=== PATIENT | male | born 1945 | race Caucasian/White ===

== ENCOUNTER 2019-10-29 07:09 | Outpatient (CLI) | payer MEDICARE, SELFPAY ==
[2019-10-29 07:26] LABS: Basophils Absolute Auto 0.05 K/mm3 (0.00-0.10); Basophils Percent Auto 0.7 % (0.0-1.0); Eosinophils Percent Auto 2.7 % (1.0-6.0); Hematocrit 49.3 % (37.0-46.0); Hemoglobin 16.3 g/dL (12.4-15.3); Immature Granulocyte Absolute 0.01 K/mm3 (0.00-0.00); Immature Granulocyte Percent A 0.1 % (0.0-0.0); Lymphocytes Absolute Auto 1.86 K/mm3 (1.10-4.50); Lymphocytes Percent Auto 25.1 % (18.0-42.0); Mean Corpuscular HGB Conc 33.1 g/dL (32.0-36.0); Mean Corpuscular Hemoglobin 32.1 pg (27.0-31.0); Mean Platelet Volume 10.7 fl (8.7-11.0); Monocytes Absolute Auto 0.68 K/mm3 (0.10-0.90); Monocytes Percent Auto 9.2 % (2.0-11.0); Neutrophils Absolute Auto 4.6 K/mm3 (1.7-7.2); Neutrophils Percent Auto 62.2 % (50.0-70.0); Platelet Count Result 144 K/mm3 (150-420); Red Blood Count 5.08 M/mm3 (4.70-6.10); Red Cell Distribution Width 13.1 % (11.6-14.4); White Blood Count 7.4 K/mm3 (4.8-10.8)
[2019-10-29 07:28] LABS: Add Urine Microscopic? YES; Appearance Urine Clear (Clear); Bilirubin Urine Negative (Negative); Blood Urine 1+ (Negative); Color Urine Yellow (Yellow); Glucose Urine UA Negative (Negative); Ketones Urine Negative (Negative); Leukocyte Esterase Ur Negative LEU/UL (Negative); Nitrate Urine Negative (Negative); Protein Urine 2+ (Negative); Specific Grav Ur 1.025 (1.010-1.020); Urobilinogen Urine 0.2 mg/dL (0.2-1.0)
[2019-10-29 07:33] LABS: Bacteria Urine None seen /hpf; RBC Urine 0-2 /hpf (0-2); WBC Urine 0-3 /hpf (0-3)
[2019-10-29 07:38] LABS: Creatinine Urine 70.06 mg/dL (40-278)
[2019-10-29 08:11] LABS: Alanine Aminotransferase 29 U/L (16-63); Alkaline Phosphatase 62 U/L (46-116); Aspartate Amino Transferase 21 U/L (15-37); Bilirubin,Total 0.7 mg/dL (0.00-1.00); Blood Urea Nitrogen 60 mg/dL (7-18); Calcium 8.8 mg/dL (8.5-10.1); Carbon Dioxide 28 mmol/L (21-32); Chloride 102 mmol/L (98-108); Estimated Glomerular Filt Rate 29; Glucose 228 mg/dL (70-99); Osmolality Calculated 313 mOsm/kg (285-295); Phosphorus 4.6 mg/dL (2.6-4.7); Sodium 140 mmol/L (136-145); Total Protein 7.7 g/dL (6.4-8.2)
[2019-10-31 18:14] LABS: Erythropoietin (EPO) 14.8 mIU/mL (2.6-18.5)
[2019-11-02 11:40] LABS: Parathyroid Intact 58 pg/mL (14-64)
[2019-11-03 12:02] LABS: Vitamin D 25 Hydroxy 55 ng/mL (30-100)
== END 2019-10-29 07:10 | disposition home or self-care (01) ==
LOC: CHSLAB 07:13
PROVIDERS: PCP Internal Medicine
DX: N18.3 Chronic kidney disease, stage 3 (moderate) (principal); I50.9 Heart failure, unspecified; E87.5 Hyperkalemia; N25.81 Secondary hyperparathyroidism of renal origin
CPT/HCPCS: 36415; 80053; 81001; 82306; 82570; 82668; 83970; 84100; 84156; 85025

== ENCOUNTER 2020-01-26 09:29 | Outpatient (CLI) | payer MEDICARE, SELFPAY ==
[2020-01-26 09:42] LABS: Basophils Absolute Auto 0.05 K/mm3 (0.00-0.10); Basophils Percent Auto 0.5 % (0.0-1.0); Eosinophils Absolute Auto 0.19 K/mm3 (0.02-0.50); Hematocrit 50.6 % (37.0-46.0); Hemoglobin 16.7 g/dL (12.4-15.3); Immature Granulocyte Absolute 0.04 K/mm3 (0.00-0.00); Immature Granulocyte Percent A 0.4 % (0.0-0.0); Lymphocytes Absolute Auto 1.88 K/mm3 (1.10-4.50); Lymphocytes Percent Auto 20.2 % (18.0-42.0); Mean Corpuscular Hemoglobin 32.5 pg (27.0-31.0); Mean Corpuscular Volume 98.4 fL (78.0-102.0); Mean Platelet Volume 10.8 fl (8.7-11.0); Monocytes Absolute Auto 0.89 K/mm3 (0.10-0.90); Monocytes Percent Auto 9.5 % (2.0-11.0); Neutrophils Absolute Auto 6.3 K/mm3 (1.7-7.2); Neutrophils Percent Auto 67.4 % (50.0-70.0); Platelet Count Result 161 K/mm3 (150-420); Red Blood Count 5.14 M/mm3 (4.70-6.10); Red Cell Distribution Width 13.1 % (11.6-14.4); White Blood Count 9.3 K/mm3 (4.8-10.8)
[2020-01-26 09:47] LABS: Add Urine Microscopic? YES; Appearance Urine Clear (Clear); Bilirubin Urine Negative (Negative); Blood Urine 1+ (Negative); Color Urine Yellow (Yellow); Glucose Urine UA Trace (Negative); Ketones Urine Negative (Negative); Leukocyte Esterase Ur Negative LEU/UL (Negative); Nitrate Urine Negative (Negative); Protein Urine 2+ (Negative); Urobilinogen Urine 0.2 mg/dL (0.2-1.0)
[2020-01-26 09:52] LABS: Bacteria Urine 1+ /hpf; Squamous Epithelial Cell Urine Occasional /hpf (Few); WBC Urine 0-3 /hpf (0-3)
[2020-01-26 09:54] LABS: Creatinine Urine 79.04 mg/dL (40-278); Total Protein Urine Random 179.7 mg/dL (0.0-11.9)
[2020-01-26 10:32] LABS: Alanine Aminotransferase 29 U/L (16-63); Albumin Level 3.9 g/dL (3.4-5.0); Alkaline Phosphatase 76 U/L (46-116); Anion Gap 11.6 mmol/L (7-16); Aspartate Amino Transferase 22 U/L (15-37); Bilirubin,Total 0.5 mg/dL (0.00-1.00); Blood Urea Nitrogen 48 mg/dL (7-18); Calcium 9.1 mg/dL (8.5-10.1); Carbon Dioxide 32 mmol/L (21-32); Chloride 104 mmol/L (98-108); Estimated Glomerular Filt Rate 34; Glucose 169 mg/dL (70-99); Osmolality Calculated 310 mOsm/kg (285-295); Phosphorus 4.1 mg/dL (2.6-4.7); Potassium 5.6 mmol/L (3.5-5.1); Sodium 142 mmol/L (136-145); Total Protein 7.4 g/dL (6.4-8.2)
[2020-01-28 17:49] LABS: Vitamin D 25 Hydroxy 51 ng/mL (30-100)
[2020-01-29 13:50] LABS: Parathyroid Intact 106 pg/mL (14-64)
== END 2020-01-26 09:30 | disposition home or self-care (01) ==
PROVIDERS: PCP Internal Medicine
DX: N18.3 Chronic kidney disease, stage 3 (moderate) (principal); I50.9 Heart failure, unspecified; E87.5 Hyperkalemia; N25.81 Secondary hyperparathyroidism of renal origin
CPT/HCPCS: 36415; 80053; 81001; 82306; 82570; 83970; 84100; 84156; 85025

== ENCOUNTER 2020-02-09 08:47 | Outpatient (CLI) | payer MEDICARE, SELFPAY ==
[2020-02-09 08:58] LABS: Basophils Absolute Auto 0.06 K/mm3 (0.00-0.10); Basophils Percent Auto 0.6 % (0.0-1.0); Eosinophils Absolute Auto 0.18 K/mm3 (0.02-0.50); Eosinophils Percent Auto 1.9 % (1.0-6.0); Hematocrit 51.1 % (37.0-46.0); Hemoglobin 17.1 g/dL (12.4-15.3); Immature Granulocyte Absolute 0.04 K/mm3 (0.00-0.00); Immature Granulocyte Percent A 0.4 % (0.0-0.0); Lymphocytes Absolute Auto 2.06 K/mm3 (1.10-4.50); Lymphocytes Percent Auto 21.3 % (18.0-42.0); Mean Corpuscular HGB Conc 33.5 g/dL (32.0-36.0); Mean Corpuscular Hemoglobin 32.3 pg (27.0-31.0); Mean Corpuscular Volume 96.6 fL (78.0-102.0); Mean Platelet Volume 10.3 fl (8.7-11.0); Monocytes Absolute Auto 0.85 K/mm3 (0.10-0.90); Monocytes Percent Auto 8.8 % (2.0-11.0); Neutrophils Absolute Auto 6.5 K/mm3 (1.7-7.2); Platelet Count Result 172 K/mm3 (150-420); Red Blood Count 5.29 M/mm3 (4.70-6.10); White Blood Count 9.7 K/mm3 (4.8-10.8)
[2020-02-09 09:38] LABS: Anion Gap 12.8 mmol/L (7-16); Blood Urea Nitrogen 51 mg/dL (7-18); Calcium 9.6 mg/dL (8.5-10.1); Carbon Dioxide 31 mmol/L (21-32); Chloride 101 mmol/L (98-108); Estimated Glomerular Filt Rate 31; Glucose 203 mg/dL (70-99); Osmolality Calculated 309 mOsm/kg (285-295); Phosphorus 4.1 mg/dL (2.6-4.7); Potassium 4.8 mmol/L (3.5-5.1); Sodium 140 mmol/L (136-145)
== END 2020-02-09 08:48 | disposition home or self-care (01) ==
PROVIDERS: PCP Internal Medicine
DX: N18.3 Chronic kidney disease, stage 3 (moderate) (principal); I12.9 Hypertensive chronic kidney disease with stage 1 through stage 4 chronic kidney disease, or unspecified chronic kidney disease
CPT/HCPCS: 36415; 80069; 85025

== ENCOUNTER 2020-03-24 07:09 | Outpatient (CLI) | payer MEDICARE, SELFPAY ==
[2020-03-24 07:24] LABS: Basophils Absolute Auto 0.05 K/mm3 (0.00-0.10); Basophils Percent Auto 0.6 % (0.0-1.0); Eosinophils Absolute Auto 0.23 K/mm3 (0.02-0.50); Eosinophils Percent Auto 2.8 % (1.0-6.0); Hematocrit 50.1 % (37.0-46.0); Hemoglobin 16.9 g/dL (12.4-15.3); Immature Granulocyte Absolute 0.03 K/mm3 (0.00-0.00); Immature Granulocyte Percent A 0.4 % (0.0-0.0); Lymphocytes Absolute Auto 2.02 K/mm3 (1.10-4.50); Lymphocytes Percent Auto 24.5 % (18.0-42.0); Mean Corpuscular HGB Conc 33.7 g/dL (32.0-36.0); Mean Corpuscular Hemoglobin 33.1 pg (27.0-31.0); Mean Corpuscular Volume 98.2 fL (78.0-102.0); Mean Platelet Volume 11.2 fl (8.7-11.0); Monocytes Absolute Auto 0.73 K/mm3 (0.10-0.90); Monocytes Percent Auto 8.9 % (2.0-11.0); Neutrophils Absolute Auto 5.2 K/mm3 (1.7-7.2); Neutrophils Percent Auto 62.8 % (50.0-70.0); Platelet Count Result 151 K/mm3 (150-420); Red Cell Distribution Width 12.9 % (11.6-14.4); White Blood Count 8.2 K/mm3 (4.8-10.8)
[2020-03-24 08:08] LABS: Add Urine Microscopic? YES; Albumin Level 3.7 g/dL (3.4-5.0); Anion Gap 8.6 mmol/L (7-16); Appearance Urine Clear (Clear); Bilirubin Urine Negative (Negative); Blood Urea Nitrogen 54 mg/dL (7-18); Blood Urine 1+ (Negative); Calcium 8.6 mg/dL (8.5-10.1); Carbon Dioxide 34 mmol/L (21-32); Chloride 102 mmol/L (98-108); Color Urine Yellow (Yellow); Estimated Glomerular Filt Rate 28; Glucose 239 mg/dL (70-99); Glucose Urine UA 1+ (Negative); Ketones Urine Negative (Negative); Leukocyte Esterase Ur Negative LEU/UL (Negative); Nitrate Urine Negative (Negative); Osmolality Calculated 312 mOsm/kg (285-295); Phosphorus 3.9 mg/dL (2.6-4.7); Potassium 4.6 mmol/L (3.5-5.1); Protein Urine 2+ (Negative); Sodium 140 mmol/L (136-145); Urobilinogen Urine 0.2 mg/dL (0.2-1.0); pH Urine 6.5 (5.0-8.0)
[2020-03-24 08:14] LABS: RBC Urine 0-2 /hpf (0-2); WBC Urine 0-3 /hpf (0-3)
[2020-03-24 08:15] LABS: Bacteria Urine None seen /hpf
[2020-03-24 08:16] LABS: Creatinine Urine 91.01 mg/dL (40-278); Total Protein Urine Random 237.1 mg/dL (0.0-11.9)
[2020-03-28 19:41] LABS: Vitamin D 25 Hydroxy 51 ng/mL (30-100)
[2020-03-29 13:01] LABS: Parathyroid Intact 84 pg/mL (14-64)
== END 2020-03-24 07:10 ==
PROVIDERS: PCP Internal Medicine
DX: N18.3 Chronic kidney disease, stage 3 (moderate) (principal); I50.9 Heart failure, unspecified; E87.5 Hyperkalemia; N25.81 Secondary hyperparathyroidism of renal origin
CPT/HCPCS: 36415; 80069; 81001; 82306; 82570; 83970; 84156; 85025

== ENCOUNTER 2020-03-28 07:44 | Outpatient (CLI) | payer MEDICARE, OTHER, SELFPAY ==
--- NOTE | ~2020-03-28 | US_ITS ---
EXAMINATION: US carotid duplex BI DATE: 03/28/2020 08:39 INDICATION: Carotid stenosis TECHNIQUE: Grayscale, color Doppler, and pulsed Doppler images of the cervical carotid arteries were obtained. The degree of vessel stenosis is placed in one of the following categories: normal, <50%, 5 0-69%, >=70% but less than near-occlusion, near-occlusion, or total occlusion. Note that percent sten osis relative to normal distal artery lumen diameter is indirectly measured from velocity measurement s as described by Sumit, et al. Radiology 2003; 229:340-346. COMPARISON: None. FINDINGS: RIGHT: The right common carotid artery (CCA) peak systolic velocity (PSV) is 54 cm/s. The right internal car otid artery (ICA) PSV is 71 cm/s. The right ICA end-diastolic velocity (EDV) is 23 cm/s. The right IC A/CCA PSV ratio is 1.3. Grayscale and color Doppler images yield an estimate of <50% diameter reducti on from plaque in the ICA. The external carotid artery (ECA) PSV is 64 cm/s. There is antegrade flow in the right vertebral artery. LEFT: The left CCA PSV is 59 cm/s. The left ICA PSV is 100 cm/s. The left ICA EDV is 40 cm/s. The left ICA/ CCA PSV ratio is 1.7. Grayscale and color Doppler images yield an estimate of <50% diameter reduction from plaque in the ICA. The ECA PSV is 70 cm/s. There is antegrade flow in the left vertebral artery . IMPRESSION: 1. <50% stenosis in the right internal carotid artery. 2. <50% stenosis in the left internal carotid artery. Reviewed, dictated and finalized at location A.
--- NOTE | ~2020-03-28 | US_ITS ---
EXAMINATION: US arterial ankle brachial ind DATE: 03/28/2020 08:39 INDICATION: Weak lower extremity pulses. Numbness and tingling of both feet TECHNIQUE: Segmental pressures and plethysmographic and Doppler waveforms of the brachial and lower e xtremity arteries were obtained. COMPARISON: None. FINDINGS: Right and left brachial artery pressures of 115 mm Hg and 114 mm Hg, respectively, are concordant (no rmal difference <= 30 mmHg). The right ankle-brachial index (VALORIE) is 1.20 (normal >= 0.9-1.0). The right great toe-brachial index (TBI) is 0.85 (normal >= 0.65). Arterial Doppler waveforms are monophasic. The left VALORIE is 1.22. The left TBI is 0.74. Arterial Doppler waveforms are biphasic. IMPRESSION: Normal VALORIE and TBI of both lower extremities Reviewed, dictated and finalized at Location A. Reviewed, dictated and finalized at location B.
== END 2020-03-28 07:45 | disposition home or self-care (01) ==
LOC: CHSIMG 07:46
PROVIDERS: PCP Internal Medicine; Visit Provider Internal Medicine
DX: I65.29 Occlusion and stenosis of unspecified carotid artery (principal); E11.59 Type 2 diabetes mellitus with other circulatory complications
CPT/HCPCS: 93880; 93922

== ENCOUNTER 2020-04-07 07:19 | Outpatient (CLI) | payer MEDICARE, SELFPAY ==
[2020-04-07 08:14] LABS: Anion Gap 8.5 mmol/L (7-16); Blood Urea Nitrogen 42 mg/dL (7-18); Carbon Dioxide 34 mmol/L (21-32); Chloride 100 mmol/L (98-108); Estimated Glomerular Filt Rate 27; Glucose 222 mg/dL (70-99); Osmolality Calculated 303 mOsm/kg (285-295); Potassium 4.5 mmol/L (3.5-5.1); Sodium 138 mmol/L (136-145)
== END 2020-04-07 07:20 | disposition home or self-care (01) ==
PROVIDERS: PCP Internal Medicine
DX: N18.3 Chronic kidney disease, stage 3 (moderate) (principal)
CPT/HCPCS: 36415; 80048

== ENCOUNTER 2020-05-09 07:42 | Outpatient (CLI) | payer MEDICARE, SELFPAY ==
[2020-05-09 08:01] LABS: Basophils Absolute Auto 0.04 K/mm3 (0.00-0.10); Basophils Percent Auto 0.5 % (0.0-1.0); Eosinophils Absolute Auto 0.19 K/mm3 (0.02-0.50); Eosinophils Percent Auto 2.3 % (1.0-6.0); Hematocrit 51.2 % (37.0-46.0); Immature Granulocyte Absolute 0.03 K/mm3 (0.00-0.00); Immature Granulocyte Percent A 0.4 % (0.0-0.0); Lymphocytes Absolute Auto 2.03 K/mm3 (1.10-4.50); Lymphocytes Percent Auto 24.6 % (18.0-42.0); Mean Corpuscular HGB Conc 33.2 g/dL (32.0-36.0); Mean Corpuscular Hemoglobin 32.6 pg (27.0-31.0); Mean Corpuscular Volume 98.1 fL (78.0-102.0); Mean Platelet Volume 11.3 fl (8.7-11.0); Monocytes Percent Auto 9.7 % (2.0-11.0); Neutrophils Absolute Auto 5.2 K/mm3 (1.7-7.2); Neutrophils Percent Auto 62.5 % (50.0-70.0); Platelet Count Result 160 K/mm3 (150-420); Red Blood Count 5.22 M/mm3 (4.70-6.10); Red Cell Distribution Width 12.6 % (11.6-14.4); White Blood Count 8.2 K/mm3 (4.8-10.8)
[2020-05-09 08:02] LABS: Add Urine Microscopic? YES; Appearance Urine Clear (Clear); Bilirubin Urine Negative (Negative); Blood Urine 1+ (Negative); Color Urine Yellow (Yellow); Glucose Urine UA Negative (Negative); Ketones Urine Negative (Negative); Leukocyte Esterase Ur Negative LEU/UL (Negative); Nitrate Urine Negative (Negative); Protein Urine 3+ (Negative); Specific Grav Ur 1.025 (1.010-1.020); Urobilinogen Urine 0.2 mg/dL (0.2-1.0)
[2020-05-09 08:11] LABS: Creatinine Urine 95.56 mg/dL (40-278); Total Protein Urine Random > 250.0 mg/dL (0.0-11.9)
[2020-05-09 08:50] LABS: WBC Urine 0-3 /hpf (0-3)
[2020-05-09 08:51] LABS: Bacteria Urine Trace /hpf
[2020-05-09 10:00] LABS: Alanine Aminotransferase 30 U/L (16-63); Albumin Level 3.7 g/dL (3.4-5.0); Alkaline Phosphatase 67 U/L (46-116); Anion Gap 6 mmol/L (8-16); Aspartate Amino Transferase 26 U/L (15-37); Bilirubin,Total 0.7 mg/dL (0.00-1.00); Blood Urea Nitrogen 32 mg/dL (7-18); Calcium 8.9 mg/dL (8.5-10.1); Carbon Dioxide 31 mmol/L (21-32); Chloride 104 mmol/L (98-108); Estimated Glomerular Filt Rate 35; Glucose 165 mg/dL (70-99); Osmolality Calculated 302 mOsm/kg (285-295); Phosphorus 3.7 mg/dL (2.6-4.7); Potassium 4.8 mmol/L (3.5-5.1); Sodium 141 mmol/L (136-145); Total Protein 7.3 g/dL (6.4-8.2)
[2020-05-12 09:43] LABS: Vitamin D 25 Hydroxy 51 ng/mL (30-100)
[2020-05-12 12:46] LABS: Parathyroid Intact 82 pg/mL (14-64)
== END 2020-05-09 07:43 | disposition home or self-care (01) ==
LOC: CHSLAB 07:44
PROVIDERS: PCP Internal Medicine; Visit Provider Internal Medicine Nephrology
DX: N18.3 Chronic kidney disease, stage 3 (moderate) (principal); E87.5 Hyperkalemia; N25.81 Secondary hyperparathyroidism of renal origin
CPT/HCPCS: 36415; 80053; 81001; 82306; 82570; 83970; 84100; 84156; 85025

== ENCOUNTER 2020-06-15 07:05 | Outpatient (CLI) | payer MEDICARE, SELFPAY ==
[2020-06-15 07:49] LABS: Hemoglobin A1C 7.5 % (<5.7)
[2020-06-15 07:54] LABS: Creatinine Urine 69.86 mg/dL (40-278)
[2020-06-15 08:35] LABS: MALB Creatinine Ratio 572.5 mg/g (0-30); Microalbumin Urine Random > 400.0 mg/L
[2020-06-15 08:41] LABS: Anion Gap 5 mmol/L (8-16); Blood Urea Nitrogen 44 mg/dL (7-18); Calcium 9.1 mg/dL (8.5-10.1); Carbon Dioxide 31 mmol/L (21-32); Chloride 104 mmol/L (98-108); Estimated Glomerular Filt Rate 32; Glucose 195 mg/dL (70-99); Osmolality Calculated 306 mOsm/kg (285-295); Potassium 4.8 mmol/L (3.5-5.1); Prostate Specific Antigen 0.6 ng/mL (< OR = 4.0); Sodium 140 mmol/L (136-145)
== END 2020-06-15 07:06 | disposition home or self-care (01) ==
LOC: CHSLAB 07:08
PROVIDERS: PCP Internal Medicine; Visit Provider Internal Medicine
DX: E11.65 Type 2 diabetes mellitus with hyperglycemia (principal); Z12.5 Encounter for screening for malignant neoplasm of prostate
CPT/HCPCS: 36415; 80048; 82043; 83036; 84153; G0103

== ENCOUNTER 2020-08-08 08:39 | Outpatient (CLI) | payer MEDICARE, SELFPAY ==
[2020-08-08 08:58] LABS: Add Urine Microscopic? YES; Appearance Urine Clear (Clear); Bilirubin Urine Negative (Negative); Blood Urine 1+ (Negative); Color Urine Yellow (Yellow); Glucose Urine UA 1+ (Negative); Ketones Urine Negative (Negative); Leukocyte Esterase Ur Negative LEU/UL (Negative); Nitrate Urine Negative (Negative); Protein Urine 2+ (Negative); Specific Grav Ur >= 1.030 (1.010-1.020); Urobilinogen Urine 0.2 mg/dL (0.2-1.0)
[2020-08-08 09:08] LABS: Bacteria Urine Trace /hpf; Basophils Absolute Auto 0.05 K/mm3 (0.00-0.10); Basophils Percent Auto 0.6 % (0.0-1.0); Eosinophils Percent Auto 2.4 % (1.0-6.0); Hematocrit 49.9 % (37.0-46.0); Hemoglobin 16.3 g/dL (12.4-15.3); Immature Granulocyte Absolute 0.03 K/mm3 (0.00-0.00); Immature Granulocyte Percent A 0.4 % (0.0-0.0); Lymphocytes Absolute Auto 2.07 K/mm3 (1.10-4.50); Lymphocytes Percent Auto 24.7 % (18.0-42.0); Mean Corpuscular HGB Conc 32.7 g/dL (32.0-36.0); Mean Corpuscular Hemoglobin 32.1 pg (27.0-31.0); Mean Corpuscular Volume 98.2 fL (78.0-102.0); Mean Platelet Volume 11.3 fl (8.7-11.0); Monocytes Absolute Auto 0.76 K/mm3 (0.10-0.90); Monocytes Percent Auto 9.1 % (2.0-11.0); Neutrophils Absolute Auto 5.3 K/mm3 (1.7-7.2); Neutrophils Percent Auto 62.8 % (50.0-70.0); Platelet Count Result 165 K/mm3 (150-420); RBC Urine 0-2 /hpf (0-2); Red Blood Count 5.08 M/mm3 (4.70-6.10); Red Cell Distribution Width 13.3 % (11.6-14.4); WBC Urine 0-3 /hpf (0-3); White Blood Count 8.4 K/mm3 (4.8-10.8)
[2020-08-08 09:22] LABS: Creatinine Urine 84.37 mg/dL (40-278)
[2020-08-08 09:24] LABS: Total Protein Urine Random > 250.0 mg/dL (0.0-11.9)
[2020-08-08 09:36] LABS: Alanine Aminotransferase 41 U/L (16-63); Albumin Level 3.6 g/dL (3.4-5.0); Alkaline Phosphatase 89 U/L (46-116); Anion Gap 5 mmol/L (8-16); Aspartate Amino Transferase 27 U/L (15-37); Bilirubin,Total 0.6 mg/dL (0.00-1.00); Blood Urea Nitrogen 40 mg/dL (7-18); Calcium 9.1 mg/dL (8.5-10.1); Carbon Dioxide 32 mmol/L (21-32); Chloride 105 mmol/L (98-108); Estimated Glomerular Filt Rate 32; Glucose 202 mg/dL (70-99); Osmolality Calculated 309 mOsm/kg (285-295); Phosphorus 4.5 mg/dL (2.6-4.7); Potassium 4.6 mmol/L (3.5-5.1); Sodium 142 mmol/L (136-145); Total Protein 7.2 g/dL (6.4-8.2)
[2020-08-10 13:38] LABS: Parathyroid Intact 44 pg/mL (14-64)
[2020-08-11 09:05] LABS: Vitamin D 25 Hydroxy 48 ng/mL (30-100)
== END 2020-08-08 08:40 | disposition home or self-care (01) ==
LOC: CHSLAB 08:41
PROVIDERS: PCP Internal Medicine; Visit Provider Internal Medicine Nephrology
DX: N18.30 Chronic kidney disease, stage 3 unspecified (principal); E87.5 Hyperkalemia; R31.9 Hematuria, unspecified
CPT/HCPCS: 36415; 80053; 81001; 82306; 82570; 83970; 84100; 84156; 85025

== ENCOUNTER 2020-08-09 09:31 | Outpatient (CLI) | payer MEDICARE, SELFPAY ==
[2020-08-10 14:04] LABS: SARS-CoV-2 RNA PCR Negative
== END 2020-08-09 09:32 | disposition home or self-care (01) ==
LOC: CHSLAB 09:34
PROVIDERS: PCP Internal Medicine; Visit Provider Internal Medicine
DX: Z20.828 Contact with and (suspected) exposure to other viral communicable diseases (principal)
CPT/HCPCS: 87635; C9803; U0003

== ENCOUNTER 2020-08-25 06:25 | Outpatient (CLI) | payer MEDICARE, SELFPAY ==
[2020-08-26 19:10] LABS: SARS-CoV-2 RNA PCR Negative
== END 2020-08-25 06:26 | disposition home or self-care (01) ==
LOC: CHSLAB 06:26
PROVIDERS: PCP Internal Medicine; Visit Provider Internal Medicine
DX: Z20.828 Contact with and (suspected) exposure to other viral communicable diseases (principal)
CPT/HCPCS: 87635; C9803; U0003

== ENCOUNTER 2020-09-26 07:22 | Outpatient (CLI) | payer MEDICARE, SELFPAY ==
[2020-09-26 07:46] LABS: Hemoglobin A1C 8.3 % (<5.7)
[2020-09-26 08:31] LABS: Creatinine Urine 78.39 mg/dL (40-278); MALB Creatinine Ratio 510.2 mg/g (0-30); Microalbumin Urine Random > 400.0 mg/L
[2020-09-26 08:51] LABS: Anion Gap 6 mmol/L (8-16); Blood Urea Nitrogen 39 mg/dL (7-18); Calcium 9.4 mg/dL (8.5-10.1); Carbon Dioxide 32 mmol/L (21-32); Chloride 102 mmol/L (98-108); Estimated Glomerular Filt Rate 31; Glucose 202 mg/dL (70-99); Osmolality Calculated 305 mOsm/kg (285-295); Potassium 4.8 mmol/L (3.5-5.1); Sodium 140 mmol/L (136-145)
== END 2020-09-26 07:23 | disposition home or self-care (01) ==
LOC: CHSLAB 07:24
PROVIDERS: PCP Internal Medicine; Visit Provider Internal Medicine
DX: E11.65 Type 2 diabetes mellitus with hyperglycemia (principal)
CPT/HCPCS: 36415; 80048; 82043; 83036

== ENCOUNTER 2020-11-07 09:29 | Outpatient (CLI) | payer MEDICARE, SELFPAY ==
[2020-11-07 09:41] LABS: Basophils Absolute Auto 0.03 K/mm3 (0.00-0.10); Basophils Percent Auto 0.4 % (0.0-1.0); Eosinophils Absolute Auto 0.16 K/mm3 (0.02-0.50); Eosinophils Percent Auto 1.9 % (1.0-6.0); Hemoglobin 16.8 g/dL (12.4-15.3); Immature Granulocyte Absolute 0.05 K/mm3 (0.00-0.00); Immature Granulocyte Percent A 0.6 % (0.0-0.0); Lymphocytes Absolute Auto 1.72 K/mm3 (1.10-4.50); Lymphocytes Percent Auto 20.4 % (18.0-42.0); Mean Corpuscular HGB Conc 33.6 g/dL (32.0-36.0); Mean Corpuscular Hemoglobin 32.6 pg (27.0-31.0); Mean Corpuscular Volume 96.9 fL (78.0-102.0); Mean Platelet Volume 10.7 fl (8.7-11.0); Monocytes Absolute Auto 0.86 K/mm3 (0.10-0.90); Monocytes Percent Auto 10.2 % (2.0-11.0); Neutrophils Absolute Auto 5.6 K/mm3 (1.7-7.2); Neutrophils Percent Auto 66.5 % (50.0-70.0); Platelet Count Result 142 K/mm3 (150-420); Red Blood Count 5.16 M/mm3 (4.70-6.10); Red Cell Distribution Width 13.2 % (11.6-14.4); White Blood Count 8.4 K/mm3 (4.8-10.8)
[2020-11-07 09:42] LABS: Add Urine Microscopic? YES; Appearance Urine Clear (Clear); Bilirubin Urine Negative (Negative); Blood Urine 2+ (Negative); Color Urine Yellow (Yellow); Glucose Urine UA 1+ (Negative); Ketones Urine Negative (Negative); Leukocyte Esterase Ur Negative LEU/UL (Negative); Nitrate Urine Negative (Negative); Protein Urine 3+ (Negative); Specific Grav Ur 1.025 (1.010-1.020); Urobilinogen Urine 0.2 mg/dL (0.2-1.0); pH Urine 6.5 (5.0-8.0)
[2020-11-07 09:51] LABS: Bacteria Urine None seen /hpf; Squamous Epithelial Cell Urine Occasional /hpf (Few); WBC Urine 0-3 /hpf (0-3)
[2020-11-07 09:54] LABS: Creatinine Urine 86.39 mg/dL (40-278)
[2020-11-07 10:05] LABS: Total Protein Urine Random > 250.0 mg/dL (0.0-11.9); Ur Ttl Prot Creatinine Ratio 2.89 mg/mg (0-0.20)
[2020-11-07 10:56] LABS: Alanine Aminotransferase 39 U/L (16-63); Albumin Level 3.8 g/dL (3.4-5.0); Alkaline Phosphatase 74 U/L (46-116); Anion Gap 6 mmol/L (8-16); Aspartate Amino Transferase 29 U/L (15-37); Bilirubin,Total 0.7 mg/dL (0.00-1.00); Blood Urea Nitrogen 43 mg/dL (7-18); Calcium 9.1 mg/dL (8.5-10.1); Carbon Dioxide 33 mmol/L (21-32); Chloride 101 mmol/L (98-108); Estimated Glomerular Filt Rate 29; Glucose 210 mg/dL (70-99); Osmolality Calculated 306 mOsm/kg (285-295); Phosphorus 3.6 mg/dL (2.6-4.7); Potassium 4.7 mmol/L (3.5-5.1); Sodium 140 mmol/L (136-145); Total Protein 7.2 g/dL (6.4-8.2)
[2020-11-10 10:16] LABS: Vitamin D 25 Hydroxy 52 ng/mL (30-100)
[2020-11-11 13:32] LABS: Parathyroid Intact 76 pg/mL (14-64)
== END 2020-11-07 09:30 | disposition home or self-care (01) ==
LOC: CHSLAB 09:31
PROVIDERS: PCP Internal Medicine; Visit Provider Internal Medicine Nephrology
DX: N18.30 Chronic kidney disease, stage 3 unspecified (principal); I50.9 Heart failure, unspecified; E87.5 Hyperkalemia
CPT/HCPCS: 36415; 80053; 81001; 82306; 82570; 83970; 84100; 84156; 85025

== ENCOUNTER 2021-01-03 07:15 | Outpatient (CLI) | payer MEDICARE, SELFPAY ==
[2021-01-03 07:34] LABS: Hemoglobin A1C 7.2 % (<5.7)
[2021-01-03 08:26] LABS: Anion Gap 6 mmol/L (8-16); Blood Urea Nitrogen 43 mg/dL (7-18); Calcium 9.2 mg/dL (8.5-10.1); Carbon Dioxide 31 mmol/L (21-32); Chloride 102 mmol/L (98-108); Estimated Glomerular Filt Rate 29; Glucose 170 mg/dL (70-99); Osmolality Calculated 302 mOsm/kg (285-295); Potassium 4.4 mmol/L (3.5-5.1); Sodium 139 mmol/L (136-145)
== END 2021-01-03 07:16 | disposition home or self-care (01) ==
PROVIDERS: PCP Internal Medicine; Visit Provider Internal Medicine
DX: E11.65 Type 2 diabetes mellitus with hyperglycemia (principal)
CPT/HCPCS: 36415; 80048; 83036

== ENCOUNTER 2021-01-24 09:52 | Outpatient (CLI) | payer MEDICARE, SELFPAY ==
--- NOTE | ~2021-01-24 | US_ITS ---
EXAMINATION: US arterial ankle brachial ind EXAM DATE: 01/24/2021 10:51 INDICATION: Peripheral arterial disease of the legs. TECHNIQUE: Segmental pressures and plethysmographic and Doppler waveforms of the brachial and lower e xtremity arteries were obtained. Comparison is made to prior examination from 03/28/2020. FINDINGS: Right and left brachial artery pressures of 141 mm Hg and 150 mm Hg, respectively, are concordant (no rmal difference <= 30 mmHg). RIGHT LEG: The ankle-brachial index (VALORIE) is 0.94 (normal >= 0.9-1). Great toe pressure of 49 mmHg was obtained. The lower extremity ratios, segmental pressure gradients as follows; Dorsalis pedis: 0.94 (141 mmHg). Posterior tibial: Could not obtain ( mmHg). (Normal gradients <= 20-30 mmHg between adjacent levels on the same leg or the same levels on the two legs). Arterial waveforms are monophasic. LEFT LEG: The ankle-brachial index (VALORIE) is X.XX (normal >= 0.9-1). Great toe pressure of 85 mmHg was obtained. The lower extremity ratios, segmental pressure gradients as follows; Dorsalis pedis: 1.10 (165 mmHg). Posterior tibial: Could not obtain ( mmHg). (Normal gradients <= 20-30 mmHg between adjacent levels on the same leg or the same levels on the two legs). Arterial waveforms are biphasic. IMPRESSION: 1. Right ankle-brachial index 0.94, normal. Monophasic waveform. 2. Left ankle-brachial index 1.10, normal. Biphasic waveform. 3. Could not cuff of posterior tibial arteries. Reviewed, dictated and finalized at location B.
== END 2021-01-24 09:53 | disposition home or self-care (01) ==
LOC: CHSIMG 09:53
PROVIDERS: PCP Internal Medicine; Visit Provider Internal Medicine
DX: I73.9 Peripheral vascular disease, unspecified (principal)
CPT/HCPCS: 93922

== ENCOUNTER 2021-02-14 10:27 | Outpatient (RCR) | payer MEDICARE, OTHER, SELFPAY ==
--- NOTE | 2021-02-14 12:01 | PTOPEVAL ---
Thank you for referring Davonte He to [facility].? The patient is scheduled to be seen for therapy? _2___x/week for 10 visits. Please review, sign, date and return this plan of care STEVIE. I agree with and certify that the following plan of care is medically necessary. Referring Physician Date Admitting Provider: Attending Provider: MARIELA YANG Referring Provider: *PT Outpatient Evaluation Start: 02/14/21 10:41 Freq: Status: Active Protocol: Document 02/14/21 10:54 ACR (Rec: 02/14/21 12:00 ACR [id number]) Therapy Assessment Status Assessment Status Assessment Status Evaluation Evaluation Information Problem Diagnosis unsteady balance Onset 09/23/20 Subjective Information Patient states that he had Query Text:As Reported By Patient/ inner ear infections years ago Family that started to effect his balance and he now has uncontrolled diabetes that has caused him to have neuropathy . He then had a stroke in 2017 and the balance problems have gotten worse. Patient states that he has noticed his legs getting weaker and weaker because of his fatigue as the day goes by. Patient states that he has had one fall in the past year. He states that his equilibrium is so off that when he is going up the steps , but doesn't have the handrails he would fall. He states that he has the most difficulty walking on uneven terrain/on angle and steps. Prior Level of Function Activity Level (Last 3 Months) Occupation retired Hand Dominance Right Activity of Daily Living Ability Independent Indoor/Home Mobility Independent Community Mobility Independent Stairs Ability Independent Functional Cognition (Planning, Shopping Independent , Taking Medications) Cooking Yes Cleaning Yes Laundry Yes Shopping Yes Driving Yes Pain Assessment Timing of Pain Assessment Timing of Pain Assessment Pre-Treatment Pain Scale Pain Scale Used Numeric (1 - 10) Self Report Pain Assessment Bilateral Foot/Feet Reported Pain Level
--- NOTE | 2021-03-16 15:15 | PTOPEVAL ---
Thank you for referring Davonte He to [facility].? The patient is scheduled to be seen for therapy? ____x/week for ___ weeks. Please review, sign, date and return this plan of care STEVIE. I agree with and certify that the following plan of care is medically necessary. Referring Physician Date Admitting Provider: Attending Provider: MARIELA YANG Referring Provider: *PT Outpatient Evaluation Start: 02/14/21 10:41 Freq: Status: Active Protocol: Document 03/16/21 13:30 [facility] (Rec: 03/16/21 14:47 [facility] [id number]) Therapy Assessment Status Assessment Status Assessment Status Re-evaluation Evaluation Information Problem Diagnosis unsteady balance Onset 09/23/20 Subjective Information Patient reports no falls or Query Text:As Reported By Patient/ pain since the last visit. He Family reports that he feels that he is getting stronger, but he feels as if his balance on uneven surfaces has not improved significantly. Pain Assessment Timing of Pain Assessment Timing of Pain Assessment Assessment Self Report Self Report Pain Level 0 Pain Score Pain Score 0: Self Report Lower Extremity Muscle Strength Testing Hip Strength Right Hip Flexion Strength 4 Good Left Hip Flexion Strength 4+ Good + Knee Strength Right Knee Flexion Strength 4+ Good + Knee Extension Strength 4+ Good + Left Knee Flexion Strength 5 Normal Knee Extension Strength 5 Normal Ankle Strength Bilateral Ankle Dorsiflexion Strength 4 Good Ankle Plantarflexion Strength 4 Good Balance Assessment Tinetti Balance Assessment Sitting Balance Steady, safe Ability to Arise Able, w/o using arms Attempts to Arise Arises on 1st attempt Immediate Standing Balance Steady w/o support Standing Balance Steady, wide stance Nudged Response Steady Standing with Eyes Closed Unsteady Step Pattern Turning 360 Degrees Continuous steps Stability Turning 360 Degrees Steady Sitting Down Safe, steady Initiation of Gait No hesitancy Right Foot Step Length Does pass stance foot Right Foot Step Height Completely clears floor Left Foot Step Length Does pass stance foot Left Foot Step Height Completely clears floor Step Symmetry Step length appears equal Step Continuity Steps appear continuous Path Description Mild/moderate deviation Trunk Description No sway but posturing Walking Stance
--- NOTE | 2021-04-04 15:05 | PTOPEVAL ---
Thank you for referring Davonte He to [facility].? The patient is scheduled to be seen for therapy? ____x/week for ___ weeks. Please review, sign, date and return this plan of care STEVIE. I agree with and certify that the following plan of care is medically necessary. Referring Physician Date Admitting Provider: Attending Provider: MARIELA YANG Referring Provider: *PT Outpatient Evaluation Start: 02/14/21 10:41 Freq: Status: Active Protocol: Document 04/04/21 13:42 ACR (Rec: 04/04/21 14:50 ACR [email or web address]) Therapy Assessment Status Assessment Status Assessment Status Discharge Evaluation Information Problem Diagnosis unsteady balance Onset 09/23/20 Subjective Information Patient states that he really Query Text:As Reported By Patient/ no worse or any better. He is Family still able to do everything that he needs to do, but he continues to lose his balance. He has not fallen. The patient sees his neurologist in a few weeks and would like to see him and continue his HEP before continuing therapy. Pain Assessment Timing of Pain Assessment Timing of Pain Assessment Pre-Treatment Self Report Self Report Pain Level 0 Pain Score Pain Score 0: Self Report Lower Extremity Muscle Strength Testing Hip Strength Right Hip Flexion Strength 4+ Good + Left Hip Flexion Strength 5 Normal Knee Strength Right Knee Flexion Strength 5 Normal Knee Extension Strength 5 Normal Left Knee Flexion Strength 5 Normal Knee Extension Strength 5 Normal Ankle Strength Bilateral Ankle Dorsiflexion Strength 4+ Good + Ankle Plantarflexion Strength 4+ Good + Balance Assessment Tinetti Balance Assessment Sitting Balance Steady, safe Ability to Arise Able, w/o using arms Attempts to Arise Arises on 1st attempt Immediate Standing Balance Steady w/o support Standing Balance Narrow stance w/o support Nudged Response Steady Standing with Eyes Closed Unsteady Step Pattern Turning 360 Degrees Continuous steps Stability Turning 360 Degrees Steady Sitting Down Safe, steady Initiation of Gait No hesitancy Right Foot Step Length Does pass stance foot Right Foot Step Height Completely clears floor Left Foot Step Length Does pass stance foot Left Foot Step Height Completely clears floor Step Symmetry Step length appears equal S
== END 2021-04-04 15:37 | disposition home or self-care (01) ==
LOC: CHSPT 10:27
PROVIDERS: PCP Internal Medicine
DX: R26.89 Other abnormalities of gait and mobility (principal)
CPT/HCPCS: 97110; 97112; 97161

== ENCOUNTER 2021-03-03 09:10 | Outpatient (CLI) | payer MEDICARE, SELFPAY ==
[2021-03-03 09:24] LABS: Appearance Urine Clear (Clear); Bilirubin Urine Negative (Negative); Blood Urine 2+ (Negative); Glucose Urine UA Negative (Negative); Ketones Urine Negative (Negative); Leukocyte Esterase Ur Negative LEU/UL (Negative); Nitrate Urine Negative (Negative); Protein Urine 3+ (Negative); Specific Grav Ur 1.025 (1.010-1.020); Urobilinogen Urine 0.2 mg/dL (0.2-1.0); pH Urine 6.5 (5.0-8.0)
[2021-03-03 09:26] LABS: Basophils Absolute Auto 0.05 K/mm3 (0.00-0.10); Basophils Percent Auto 0.6 % (0.0-1.0); Eosinophils Absolute Auto 0.18 K/mm3 (0.02-0.50); Eosinophils Percent Auto 2.2 % (1.0-6.0); Hematocrit 47.2 % (37.0-46.0); Hemoglobin 15.7 g/dL (12.4-15.3); Immature Granulocyte Absolute 0.01 K/mm3 (0.00-0.00); Immature Granulocyte Percent A 0.1 % (0.0-0.0); Immature Platelet Fraction Pct 3.2 % (1.0-7.0); Lymphocytes Absolute Auto 1.72 K/mm3 (1.10-4.50); Lymphocytes Percent Auto 21.2 % (18.0-42.0); Mean Corpuscular HGB Conc 33.3 g/dL (32.0-36.0); Mean Corpuscular Hemoglobin 32.4 pg (27.0-31.0); Mean Corpuscular Volume 97.3 fL (78.0-102.0); Mean Platelet Volume 11.3 fl (8.7-11.0); Monocytes Absolute Auto 0.83 K/mm3 (0.10-0.90); Monocytes Percent Auto 10.2 % (2.0-11.0); Neutrophils Absolute Auto 5.3 K/mm3 (1.7-7.2); Neutrophils Percent Auto 65.7 % (50.0-70.0); Platelet Count Result 135 K/mm3 (150-420); Red Blood Count 4.85 M/mm3 (4.70-6.10); Red Cell Distribution Width 13.2 % (11.6-14.4); White Blood Count 8.1 K/mm3 (4.8-10.8)
[2021-03-03 09:29] LABS: Add Urine Microscopic? YES; Color Urine Light Yellow (Yellow); RBC Urine 0-2 /hpf (0-2); Squamous Epithelial Cell Urine Rare /hpf (Few); WBC Urine None seen /hpf (0-3)
[2021-03-03 09:30] LABS: Bacteria Urine Trace /hpf
[2021-03-03 09:37] LABS: Creatinine Urine 86.74 mg/dL (40-278)
[2021-03-03 09:39] LABS: Total Protein Urine Random > 250.0 mg/dL (0.0-11.9); Ur Ttl Prot Creatinine Ratio 2.88 mg/mg (0-0.20)
[2021-03-03 10:47] LABS: Alanine Aminotransferase 27 U/L (16-63); Albumin Level 3.7 g/dL (3.4-5.0); Alkaline Phosphatase 79 U/L (46-116); Anion Gap 11 mmol/L (8-16); Aspartate Amino Transferase 20 U/L (15-37); Bilirubin,Total 0.5 mg/dL (0.00-1.00); Blood Urea Nitrogen 52 mg/dL (7-18); Calcium 9.2 mg/dL (8.5-10.1); Carbon Dioxide 27 mmol/L (21-32); Chloride 105 mmol/L (98-108); Estimated Glomerular Filt Rate 27; Glucose 181 mg/dL (70-99); Osmolality Calculated 315 mOsm/kg (285-295); Phosphorus 4.7 mg/dL (2.6-4.7); Potassium 4.5 mmol/L (3.5-5.1); Sodium 143 mmol/L (136-145); Total Protein 7.1 g/dL (6.4-8.2); Uric Acid 5.1 mg/dL (3.5-7.2)
[2021-03-07 11:46] LABS: Parathyroid Intact 65 pg/mL (14-64)
[2021-03-07 18:52] LABS: Vitamin D 25 Hydroxy 56 ng/mL (30-100)
== END 2021-03-03 09:11 | disposition home or self-care (01) ==
LOC: CHSLAB 09:12
PROVIDERS: PCP Internal Medicine; Visit Provider Internal Medicine Nephrology
DX: N18.4 Chronic kidney disease, stage 4 (severe) (principal); I50.9 Heart failure, unspecified; E87.5 Hyperkalemia; N20.0 Calculus of kidney
CPT/HCPCS: 36415; 80053; 81001; 82306; 82570; 83970; 84100; 84156; 84550; 85025; 85055

== ENCOUNTER 2021-05-08 07:19 | Outpatient (CLI) | payer MEDICARE, SELFPAY ==
[2021-05-08 08:19] LABS: Hemoglobin A1C 7.1 % (<5.7)
[2021-05-08 08:21] LABS: Creatinine Urine 69.62 mg/dL (40-278)
[2021-05-08 08:51] LABS: MALB Creatinine Ratio 574.5 mg/g (0-30); Microalbumin Urine Random > 400.0 mg/L
[2021-05-08 09:45] LABS: Anion Gap 10 mmol/L (8-16); Blood Urea Nitrogen 44 mg/dL (7-18); Calcium 9.1 mg/dL (8.5-10.1); Carbon Dioxide 30 mmol/L (21-32); Chloride 102 mmol/L (98-108); Estimated Glomerular Filt Rate 32; Glucose 153 mg/dL (70-99); Osmolality Calculated 308 mOsm/kg (285-295); Potassium 4.7 mmol/L (3.5-5.1); Sodium 142 mmol/L (136-145)
== END 2021-05-08 07:20 | disposition home or self-care (01) ==
LOC: CHSLAB 07:20
PROVIDERS: PCP Internal Medicine; Visit Provider Internal Medicine
DX: N18.30 Chronic kidney disease, stage 3 unspecified (principal); E11.65 Type 2 diabetes mellitus with hyperglycemia
CPT/HCPCS: 36415; 80048; 82043; 83036

== ENCOUNTER 2021-06-02 07:20 | Outpatient (CLI) | payer MEDICARE, SELFPAY ==
[2021-06-02 08:27] LABS: Alanine Aminotransferase 50 U/L (16-63); Anion Gap 6 mmol/L (8-16); Aspartate Amino Transferase 27 U/L (15-37); Blood Urea Nitrogen 37 mg/dL (7-18); Calcium 9.1 mg/dL (8.5-10.1); Carbon Dioxide 32 mmol/L (21-32); Chloride 104 mmol/L (98-108); Estimated Glomerular Filt Rate 32; Glucose 203 mg/dL (70-99); Osmolality Calculated 308 mOsm/kg (285-295); Potassium 5.1 mmol/L (3.5-5.1); Sodium 142 mmol/L (136-145)
== END 2021-06-02 07:21 | disposition home or self-care (01) ==
PROVIDERS: PCP Internal Medicine
DX: I25.118 Atherosclerotic heart disease of native coronary artery with other forms of angina pectoris (principal)
CPT/HCPCS: 36415; 80048; 84450; 84460

== ENCOUNTER 2021-07-28 09:36 | Outpatient (CLI) | payer MEDICARE, SELFPAY ==
[2021-07-28 09:52] LABS: Basophils Absolute Auto 0.05 K/mm3 (0.00-0.10); Basophils Percent Auto 0.6 % (0.0-1.0); Eosinophils Absolute Auto 0.18 K/mm3 (0.02-0.50); Hematocrit 48.8 % (37.0-46.0); Hemoglobin 16.3 g/dL (12.4-15.3); Immature Granulocyte Absolute 0.03 K/mm3 (0.00-0.00); Immature Granulocyte Percent A 0.3 % (0.0-0.0); Lymphocytes Absolute Auto 1.59 K/mm3 (1.10-4.50); Lymphocytes Percent Auto 17.9 % (18.0-42.0); Mean Corpuscular HGB Conc 33.4 g/dL (32.0-36.0); Mean Corpuscular Hemoglobin 32.5 pg (27.0-31.0); Mean Corpuscular Volume 97.2 fL (78.0-102.0); Mean Platelet Volume 10.8 fl (8.7-11.0); Monocytes Absolute Auto 0.94 K/mm3 (0.10-0.90); Monocytes Percent Auto 10.6 % (2.0-11.0); Neutrophils Absolute Auto 6.1 K/mm3 (1.7-7.2); Neutrophils Percent Auto 68.6 % (50.0-70.0); Platelet Count Result 161 K/mm3 (150-420); Red Blood Count 5.02 M/mm3 (4.70-6.10); Red Cell Distribution Width 13.9 % (11.6-14.4); White Blood Count 8.9 K/mm3 (4.8-10.8)
[2021-07-28 09:53] LABS: Appearance Urine Clear (Clear); Bilirubin Urine Negative (Negative); Color Urine Yellow (Yellow); Glucose Urine UA Negative (Negative); Ketones Urine Negative (Negative); Leukocyte Esterase Ur Negative LEU/UL (Negative); Nitrate Urine Negative (Negative); Protein Urine 3+ (Negative); Specific Grav Ur 1.025 (1.010-1.020); Urobilinogen Urine 0.2 mg/dL (0.2-1.0)
[2021-07-28 10:06] LABS: Creatinine Urine 103.76 mg/dL (40-278)
[2021-07-28 10:08] LABS: Total Protein Urine Random > 250.0 mg/dL (0.0-11.9); Ur Ttl Prot Creatinine Ratio 2.41 mg/mg (0-0.20)
[2021-07-28 10:11] LABS: Add Urine Microscopic? YES; Blood Urine Trace-Intact (Negative); RBC Urine None seen /hpf (0-2)
[2021-07-28 10:12] LABS: Bacteria Urine Trace /hpf; Squamous Epithelial Cell Urine Rare /hpf (Few); WBC Urine 0-3 /hpf (0-3)
[2021-07-28 10:56] LABS: Alanine Aminotransferase 34 U/L (16-63); Albumin Level 3.9 g/dL (3.4-5.0); Alkaline Phosphatase 83 U/L (46-116); Anion Gap 7 mmol/L (8-16); Aspartate Amino Transferase 21 U/L (15-37); Bilirubin,Total 0.8 mg/dL (0.00-1.00); Blood Urea Nitrogen 44 mg/dL (7-18); Calcium 9.5 mg/dL (8.5-10.1); Carbon Dioxide 31 mmol/L (21-32); Chloride 103 mmol/L (98-108); Estimated Glomerular Filt Rate 29; Glucose 170 mg/dL (70-99); Osmolality Calculated 307 mOsm/kg (285-295); Phosphorus 4.5 mg/dL (2.6-4.7); Potassium 4.7 mmol/L (3.5-5.1); Sodium 141 mmol/L (136-145); Total Protein 7.9 g/dL (6.4-8.2)
[2021-08-01 12:06] LABS: Parathyroid Intact 61 pg/mL (14-64)
[2021-08-01 19:35] LABS: Vitamin D 25 Hydroxy 58 ng/mL (30-100)
== END 2021-07-28 09:37 | disposition home or self-care (01) ==
LOC: CHSLAB 09:39
PROVIDERS: PCP Internal Medicine; Visit Provider Internal Medicine Nephrology
DX: I50.9 Heart failure, unspecified (principal); N18.4 Chronic kidney disease, stage 4 (severe); E87.5 Hyperkalemia
CPT/HCPCS: 36415; 80053; 81001; 82306; 82570; 83970; 84100; 84156; 85025

== ENCOUNTER 2021-08-04 07:17 | Outpatient (CLI) | payer MEDICARE, SELFPAY ==
[2021-08-04 07:29] LABS: Appearance Urine Clear (Clear); Bilirubin Urine Negative (Negative); Color Urine Light Yellow (Yellow); Glucose Urine UA Negative (Negative); Ketones Urine Negative (Negative); Leukocyte Esterase Ur Negative (Negative); Nitrate Urine Negative (Negative); Protein Urine 3+ (Negative); Specific Grav Ur >= 1.030 (1.010-1.020); Urobilinogen Urine 0.2 mg/dL (0.2-1.0)
[2021-08-04 08:31] LABS: Add Urine Microscopic? YES; Blood Urine Trace-Intact (Negative)
[2021-08-04 08:32] LABS: Bacteria Urine 1+ /hpf; Squamous Epithelial Cell Urine Few /hpf (Few)
[2021-08-04 08:42] LABS: Alanine Aminotransferase 38 U/L (16-63); Albumin Level 3.8 g/dL (3.4-5.0); Alkaline Phosphatase 86 U/L (46-116); Anion Gap 8 mmol/L (8-16); Aspartate Amino Transferase 24 U/L (15-37); Bilirubin,Total 0.6 mg/dL (0.00-1.00); Blood Urea Nitrogen 44 mg/dL (7-18); Calcium 9.2 mg/dL (8.5-10.1); Carbon Dioxide 30 mmol/L (21-32); Chloride 105 mmol/L (98-108); Creatinine Urine 79.36 mg/dL (40-278); Estimated Glomerular Filt Rate 31; Glucose 179 mg/dL (70-99); Osmolality Calculated 311 mOsm/kg (285-295); Potassium 4.9 mmol/L (3.5-5.1); Sodium 143 mmol/L (136-145); Total Protein 7.1 g/dL (6.4-8.2)
[2021-08-04 09:03] LABS: Microalbumin Urine Random > 400.0 mg/L
== END 2021-08-04 07:18 | disposition home or self-care (01) ==
LOC: CHSLAB 07:19
PROVIDERS: PCP Internal Medicine; Visit Provider Internal Medicine
DX: E11.21 Type 2 diabetes mellitus with diabetic nephropathy (principal); I10 Essential (primary) hypertension
CPT/HCPCS: 36415; 80053; 81001; 82043; 83036

== ENCOUNTER 2021-11-13 07:02 | Outpatient (CLI) | payer MEDICARE, SELFPAY ==
[2021-11-13 07:39] LABS: Hemoglobin A1C 7.7 % (<5.7)
[2021-11-13 07:45] LABS: Creatinine Urine 68.11 mg/dL (40-278)
[2021-11-13 08:52] LABS: Anion Gap 5 mmol/L (8-16); Blood Urea Nitrogen 41 mg/dL (7-18); Carbon Dioxide 32 mmol/L (21-32); Chloride 103 mmol/L (98-108); Estimated Glomerular Filt Rate 29; Glucose 180 mg/dL (70-99); Osmolality Calculated 305 mOsm/kg (285-295); Potassium 4.8 mmol/L (3.5-5.1); Sodium 140 mmol/L (136-145)
[2021-11-13 11:16] LABS: MALB Creatinine Ratio 587.2 mg/g (0-30); Microalbumin Urine Random > 400.0 mg/L
== END 2021-11-13 07:03 | disposition home or self-care (01) ==
LOC: CHSLAB 07:04
PROVIDERS: PCP Internal Medicine; Visit Provider Internal Medicine
DX: E11.65 Type 2 diabetes mellitus with hyperglycemia (principal)
CPT/HCPCS: 36415; 80048; 82043; 83036

== ENCOUNTER 2021-11-21 10:09 | Outpatient (CLI) | payer MEDICARE, SELFPAY ==
[2021-11-21 10:30] LABS: Basophils Absolute Auto 0.07 K/mm3 (0.00-0.10); Basophils Percent Auto 0.8 % (0.0-1.0); Eosinophils Absolute Auto 0.24 K/mm3 (0.02-0.50); Eosinophils Percent Auto 2.9 % (1.0-6.0); Hematocrit 48.5 % (37.0-46.0); Hemoglobin 15.5 g/dL (12.4-15.3); Immature Granulocyte Absolute 0.04 K/mm3 (0.00-0.00); Immature Granulocyte Percent A 0.5 % (0.0-0.0); Lymphocytes Absolute Auto 1.56 K/mm3 (1.10-4.50); Lymphocytes Percent Auto 18.5 % (18.0-42.0); Mean Corpuscular Hemoglobin 32.4 pg (27.0-31.0); Mean Corpuscular Volume 101.5 fL (78.0-102.0); Mean Platelet Volume 11.2 fl (8.7-11.0); Monocytes Absolute Auto 0.84 K/mm3 (0.10-0.90); Neutrophils Absolute Auto 5.7 K/mm3 (1.7-7.2); Neutrophils Percent Auto 67.3 % (50.0-70.0); Platelet Count Result 168 K/mm3 (150-420); Red Blood Count 4.78 M/mm3 (4.70-6.10); Red Cell Distribution Width 14.3 % (11.6-14.4); White Blood Count 8.4 K/mm3 (4.8-10.8)
[2021-11-21 10:32] LABS: Appearance Urine Clear (Clear); Bilirubin Urine Negative (Negative); Color Urine Light Yellow (Yellow); Glucose Urine UA Trace (Negative); Ketones Urine Negative (Negative); Leukocyte Esterase Ur Negative LEU/UL (Negative); Nitrate Urine Negative (Negative); Protein Urine 3+ (Negative); Specific Grav Ur 1.025 (1.010-1.020); Urobilinogen Urine 0.2 mg/dL (0.2-1.0); pH Urine 6.5 (5.0-8.0)
[2021-11-21 10:39] LABS: Creatinine Urine 93.19 mg/dL (40-278)
[2021-11-21 10:43] LABS: Total Protein Urine Random > 250.0 mg/dL (0.0-11.9); Ur Ttl Prot Creatinine Ratio 2.68 mg/mg (0-0.20)
[2021-11-21 10:46] LABS: Add Urine Microscopic? YES; Bacteria Urine Trace /hpf; Blood Urine Trace-Intact (Negative); RBC Urine 0-2 /hpf (0-2); Squamous Epithelial Cell Urine Rare /hpf (Few); WBC Urine None seen /hpf (0-3)
[2021-11-21 11:11] LABS: Albumin Level 3.6 g/dL (3.4-5.0); Anion Gap 7 mmol/L (8-16); Blood Urea Nitrogen 41 mg/dL (7-18); Calcium 9.1 mg/dL (8.5-10.1); Carbon Dioxide 31 mmol/L (21-32); Chloride 104 mmol/L (98-108); Estimated Glomerular Filt Rate 30; Glucose 170 mg/dL (70-99); Osmolality Calculated 308 mOsm/kg (285-295); Potassium 4.6 mmol/L (3.5-5.1); Sodium 142 mmol/L (136-145)
[2021-11-23 13:44] LABS: Vitamin D 25 Hydroxy 63 ng/mL (30-100)
[2021-11-24 14:47] LABS: Parathyroid Intact 81 pg/mL (14-64)
== END 2021-11-21 10:10 | disposition home or self-care (01) ==
PROVIDERS: PCP Internal Medicine; Visit Provider Internal Medicine Nephrology
DX: M81.0 Age-related osteoporosis without current pathological fracture (principal); N18.30 Chronic kidney disease, stage 3 unspecified; I50.9 Heart failure, unspecified; E87.5 Hyperkalemia; G62.9 Polyneuropathy, unspecified
CPT/HCPCS: 36415; 80069; 81001; 82306; 82570; 83970; 84156; 84550; 85025

== ENCOUNTER 2021-12-06 19:35 | Outpatient (CLI) | payer MEDICARE, SELFPAY ==
--- NOTE | 2021-12-10 14:16 | WPDSLEEPSTUD ---
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 He reports a high hemoglobin level. He does not have nighttime heartburn, belching or coughing. He does not snore and others do not complain that he snores. he does not awaken at night feeling short of breath. He does not have trouble sleeping with a cold. Does not gasp for breath at night. He does not have breathing problems at night observed by others. Does not sweat excessively at night. His heart does not beating irregularly at night. He occasionally falls asleep during the day occasionally falls asleep involuntarily and only rarely falls asleep while driving. He does not have loss of muscle tone with strong emotion. He does not have daytime difficulties due to excessive sleepiness. He does not feel paralyzed on waking or falling asleep. He occasionally has vivid dreamlike scenes upon awakening or falling asleep. He does not feel afraid to go to sleep and does not have nightmares. He occasionally remembers his dreams, occasionally has racing thoughts. He does not feel sad, depressed or anxious. He does not notice parts his body jerking and he does not kick at night. He occasionally has chronic aching feelings in his legs at night. He does not have any kind of leg pain at night. He does not have morning jaw pain. He does not grind his teeth during sleep. He has neuropathy which gives him pain during the day and during the night. He does not wake up feeling stiff in the morning with sore or achy muscles. He does not wake up with pain in the neck and spine. He has fatigue which she notices most in his legs and upper body. He also has vertigo and dizziness. Normal bedtime is 9:30 p.m. falling asleep within 2-3 minutes, waking 2-3 times at night to use the bathroom. He is able to return to sleep within a few minutes. He wakes at 6:00 a.m. His schedule is the same on the weekends. He takes naps in the afternoon and evening. A short nap may be refreshing. Habits: Former smoker. Caffeine 4 cups a day. No alcohol or recreational drugs. [facility] Past Medical History Medical History Atrial fibrillation CAD (coronary artery disease) CKD (chronic kidney disease), stage III DM2 (diabetes mellitus, type 2) Hyperlipidemia Hypertension Myocardial infarction 2014 Overweight Pacemaker 2012 Surgical History Surgical History History of mitral valve repair Family History Family History Father Hypertension Family history of obesity Brother Acute myocardial infarction Mother Depression Father Hypertension Family history of obesity Social History Social History Smoking status: Former smoker Medications Home Medications Medication Instructions Recorded Confirmed Type allopurinol 300 mg tablet 300 mg PO DAILY 08/14/19 History aspirin 81 mg tablet,delayed 81 mg PO DAILY 08/14/19 History release atorvastatin 80 mg tablet 80 mg PO DAILY 08/14/19 History carvedilol 3.125 mg tablet 3.125 mg PO Q12H 08/14/19 History furosemide 20 mg tablet 20 mg PO .M,W,F tablet 08/14/19 History gabapentin 300 mg capsule 300 mg PO TID 08/14/19 History glipizide 5 mg tablet 5 mg PO BID 08/14/19 History isosorbide mononitrate 30 mg 30 mg PO DAILY 08/14/19 History tablet,ext
[2021-12-12 19:37] VITALS: BMI 36.2
== END 2021-12-07 06:36 | disposition home or self-care (01) ==
LOC: CHSCSM 19:36
PROVIDERS: PCP Internal Medicine; Visit Provider Internal Medicine
DX: G47.39 Other sleep apnea (principal)
CPT/HCPCS: 95811

== ENCOUNTER 2022-02-06 08:15 | Outpatient (CLI) | payer MEDICARE, SELFPAY ==
[2022-02-06 08:59] LABS: Basophils Absolute Auto 0.04 K/mm3 (0.00-0.10); Basophils Percent Auto 0.4 % (0.0-1.0); Eosinophils Percent Auto 2.2 % (1.0-6.0); Hemoglobin 15.5 g/dL (12.4-15.3); Immature Granulocyte Absolute 0.05 K/mm3 (0.00-0.00); Immature Granulocyte Percent A 0.6 % (0.0-0.0); Lymphocytes Absolute Auto 1.73 K/mm3 (1.10-4.50); Lymphocytes Percent Auto 19.4 % (18.0-42.0); Mean Corpuscular Hemoglobin 31.3 pg (27.0-31.0); Mean Platelet Volume 11.7 fl (8.7-11.0); Monocytes Absolute Auto 0.86 K/mm3 (0.10-0.90); Monocytes Percent Auto 9.7 % (2.0-11.0); Neutrophils Percent Auto 67.7 % (50.0-70.0); Nucleated Red Blood Cells Absolute Auto 0.02 K/mm3 (0.00-0.00); Nucleated Red Blood Cells Perc 0.2 % (0-0.0); Platelet Count Result 148 K/mm3 (150-420); Red Blood Count 4.95 M/mm3 (4.70-6.10); Red Cell Distribution Width 14.6 % (11.6-14.4); White Blood Count 8.9 K/mm3 (4.8-10.8)
[2022-02-06 09:03] LABS: Add Urine Microscopic? YES; Appearance Urine Clear (Clear); Bilirubin Urine Negative (Negative); Blood Urine 1+ (Negative); Color Urine Light Yellow (Yellow); Glucose Urine UA Trace (Negative); Ketones Urine Negative (Negative); Leukocyte Esterase Ur Negative (Negative); Nitrate Urine Negative (Negative); Protein Urine 3+ (Negative); Urobilinogen Urine 0.2 mg/dL (0.2-1.0); pH Urine 6.5 (5.0-8.0)
[2022-02-06 09:08] LABS: Bacteria Urine Trace /hpf; WBC Urine None seen /hpf (0-3)
[2022-02-06 09:10] LABS: Hemoglobin A1C 8.1 % (<5.7)
[2022-02-06 09:14] LABS: Anion Gap 6 mmol/L (8-16); Blood Urea Nitrogen 46 mg/dL (7-18); Calcium 9.2 mg/dL (8.5-10.1); Carbon Dioxide 31 mmol/L (21-32); Chloride 103 mmol/L (98-108); Estimated Glomerular Filt Rate 32; Glucose 183 mg/dL (70-99); Osmolality Calculated 306 mOsm/kg (285-295); Potassium 4.4 mmol/L (3.5-5.1); Sodium 140 mmol/L (136-145)
[2022-02-06 09:25] LABS: Creatinine Urine 80.96 mg/dL (40-278)
[2022-02-06 10:13] LABS: Microalbumin Urine Random > 400.0 mg/L
== END 2022-02-06 08:16 | disposition home or self-care (01) ==
LOC: CHSLAB 08:17
PROVIDERS: PCP Internal Medicine; Visit Provider Internal Medicine
DX: N18.4 Chronic kidney disease, stage 4 (severe) (principal); E11.65 Type 2 diabetes mellitus with hyperglycemia
CPT/HCPCS: 36415; 80048; 81001; 82043; 83036; 85025

== ENCOUNTER 2022-02-22 07:09 | Outpatient (CLI) | payer MEDICARE, SELFPAY ==
[2022-02-22 07:24] LABS: Basophils Absolute Auto 0.05 K/mm3 (0.00-0.10); Basophils Percent Auto 0.6 % (0.0-1.0); Eosinophils Absolute Auto 0.28 K/mm3 (0.02-0.50); Eosinophils Percent Auto 3.2 % (1.0-6.0); Hematocrit 48.7 % (37.0-46.0); Hemoglobin 15.7 g/dL (12.4-15.3); Immature Granulocyte Absolute 0.04 K/mm3 (0.00-0.00); Immature Granulocyte Percent A 0.5 % (0.0-0.0); Lymphocytes Absolute Auto 1.91 K/mm3 (1.10-4.50); Lymphocytes Percent Auto 22.1 % (18.0-42.0); Mean Corpuscular HGB Conc 32.2 g/dL (32.0-36.0); Mean Corpuscular Hemoglobin 32.4 pg (27.0-31.0); Mean Corpuscular Volume 100.6 fL (78.0-102.0); Mean Platelet Volume 11.2 fl (8.7-11.0); Monocytes Absolute Auto 0.93 K/mm3 (0.10-0.90); Monocytes Percent Auto 10.8 % (2.0-11.0); Neutrophils Absolute Auto 5.4 K/mm3 (1.7-7.2); Neutrophils Percent Auto 62.8 % (50.0-70.0); Platelet Count Result 149 K/mm3 (150-420); Red Blood Count 4.84 M/mm3 (4.70-6.10); Red Cell Distribution Width 14.6 % (11.6-14.4); White Blood Count 8.6 K/mm3 (4.8-10.8)
[2022-02-22 07:43] LABS: Appearance Urine Clear (Clear); Bilirubin Urine Negative (Negative); Color Urine Light Yellow (Yellow); Glucose Urine UA Negative (Negative); Ketones Urine Negative (Negative); Leukocyte Esterase Ur Negative LEU/UL (Negative); Nitrate Urine Negative (Negative); Protein Urine 3+ (Negative); Specific Grav Ur 1.025 (1.010-1.020); Urobilinogen Urine 0.2 mg/dL (0.2-1.0)
[2022-02-22 07:49] LABS: Add Urine Microscopic? YES; Blood Urine Trace-Intact (Negative)
[2022-02-22 07:50] LABS: Bacteria Urine Trace /hpf; RBC Urine 0-2 /hpf (0-2); WBC Urine None seen /hpf (0-3)
[2022-02-22 07:57] LABS: Creatinine Urine 66.78 mg/dL (40-278)
[2022-02-22 08:18] LABS: Alanine Aminotransferase 28 U/L (16-63); Albumin Level 3.8 g/dL (3.4-5.0); Alkaline Phosphatase 88 U/L (46-116); Anion Gap 3 mmol/L (8-16); Aspartate Amino Transferase 21 U/L (15-37); Bilirubin,Total 0.8 mg/dL (0.00-1.00); Blood Urea Nitrogen 45 mg/dL (7-18); Calcium 9.4 mg/dL (8.5-10.1); Carbon Dioxide 31 mmol/L (21-32); Chloride 103 mmol/L (98-108); Estimated Glomerular Filt Rate 29; Glucose 178 mg/dL (70-99); Osmolality Calculated 299 mOsm/kg (285-295); Phosphorus 4.5 mg/dL (2.6-4.7); Sodium 137 mmol/L (136-145); Thyroid Stimulating Hormone 1.95 uIU/mL (0.36-3.74); Total Protein 7.3 g/dL (6.4-8.2)
[2022-02-22 08:26] LABS: Total Protein Urine Random > 250.0 mg/dL (0.0-11.9); Ur Ttl Prot Creatinine Ratio 3.74 mg/mg (0-0.20)
[2022-02-26 13:12] LABS: Parathyroid Intact 48 pg/mL (14-64)
[2022-02-28 13:56] LABS: Vitamin D 25 Hydroxy 55 ng/mL (30-100)
== END 2022-02-22 07:10 | disposition home or self-care (01) ==
LOC: CHSLAB 07:12
PROVIDERS: PCP Internal Medicine; Visit Provider Internal Medicine Nephrology
DX: N18.30 Chronic kidney disease, stage 3 unspecified (principal); I50.9 Heart failure, unspecified; E87.5 Hyperkalemia
CPT/HCPCS: 36415; 80053; 81001; 82306; 82570; 83970; 84100; 84156; 84443; 85025

== ENCOUNTER 2022-05-24 08:34 | Outpatient (CLI) | payer MEDICARE, SELFPAY ==
[2022-05-24 09:22] LABS: Hemoglobin A1C 6.8 % (<5.7)
[2022-05-24 09:25] LABS: Anion Gap 8 mmol/L (8-16); Blood Urea Nitrogen 48 mg/dL (7-18); Calcium 9.3 mg/dL (8.5-10.1); Carbon Dioxide 29 mmol/L (21-32); Chloride 99 mmol/L (98-108); Estimated Glomerular Filt Rate 31; Glucose 142 mg/dL (70-99); Osmolality Calculated 296 mOsm/kg (285-295); Potassium 4.1 mmol/L (3.5-5.1); Sodium 136 mmol/L (136-145)
== END 2022-05-24 08:35 | disposition home or self-care (01) ==
LOC: CHSLAB 08:36
PROVIDERS: PCP Internal Medicine; Visit Provider Internal Medicine
DX: E11.65 Type 2 diabetes mellitus with hyperglycemia (principal)
CPT/HCPCS: 36415; 80048; 83036

== ENCOUNTER 2022-06-21 08:45 | Outpatient (CLI) | payer MEDICARE, OTHER, SELFPAY ==
[2022-06-21 09:00] LABS: Basophils Absolute Auto 0.06 K/mm3 (0.00-0.10); Basophils Percent Auto 0.6 % (0.0-1.0); Eosinophils Absolute Auto 0.24 K/mm3 (0.02-0.50); Eosinophils Percent Auto 2.6 % (1.0-6.0); Hematocrit 47.9 % (37.0-46.0); Hemoglobin 15.5 g/dL (12.4-15.3); Immature Granulocyte Absolute 0.03 K/mm3 (0.00-0.00); Immature Granulocyte Percent A 0.3 % (0.0-0.0); Lymphocytes Absolute Auto 1.82 K/mm3 (1.10-4.50); Lymphocytes Percent Auto 19.6 % (18.0-42.0); Mean Corpuscular HGB Conc 32.4 g/dL (32.0-36.0); Mean Corpuscular Hemoglobin 32.8 pg (27.0-31.0); Mean Corpuscular Volume 101.5 fL (78.0-102.0); Mean Platelet Volume 10.4 fl (8.7-11.0); Monocytes Absolute Auto 0.88 K/mm3 (0.10-0.90); Monocytes Percent Auto 9.5 % (2.0-11.0); Neutrophils Absolute Auto 6.3 K/mm3 (1.7-7.2); Neutrophils Percent Auto 67.4 % (50.0-70.0); Platelet Count Result 167 K/mm3 (150-420); Red Blood Count 4.72 M/mm3 (4.70-6.10); Red Cell Distribution Width 14.2 % (11.6-14.4); White Blood Count 9.3 K/mm3 (4.8-10.8)
[2022-06-21 09:01] LABS: Appearance Urine Clear (Clear); Bilirubin Urine Negative (Negative); Glucose Urine UA Negative (Negative); Ketones Urine Negative (Negative); Leukocyte Esterase Ur Negative LEU/UL (Negative); Nitrate Urine Negative (Negative); Protein Urine 3+ (Negative); Urobilinogen Urine 0.2 mg/dL (0.2-1.0); pH Urine 6.5 (5.0-8.0)
[2022-06-21 09:16] LABS: Add Urine Microscopic? YES; Bacteria Urine None seen /hpf; Blood Urine Trace-Intact (Negative); Color Urine Light Yellow (Yellow); RBC Urine None seen /hpf (0-2); WBC Urine None seen /hpf (0-3)
[2022-06-21 09:17] LABS: Creatinine Urine 58.08 mg/dL (40-278)
[2022-06-21 09:20] LABS: Alanine Aminotransferase 33 U/L (16-63); Albumin Level 3.6 g/dL (3.4-5.0); Alkaline Phosphatase 73 U/L (46-116); Anion Gap 4 mmol/L (8-16); Aspartate Amino Transferase 24 U/L (15-37); Bilirubin,Total 0.7 mg/dL (0.00-1.00); Blood Urea Nitrogen 41 mg/dL (7-18); Calcium 9.5 mg/dL (8.5-10.1); Carbon Dioxide 35 mmol/L (21-32); Chloride 104 mmol/L (98-108); Estimated Glomerular Filt Rate 29; Glucose 125 mg/dL (70-99); Osmolality Calculated 307 mOsm/kg (285-295); Phosphorus 4.1 mg/dL (2.6-4.7); Potassium 4.4 mmol/L (3.5-5.1); Sodium 143 mmol/L (136-145); Total Protein 7.7 g/dL (6.4-8.2)
[2022-06-21 09:26] LABS: Total Protein Urine Random > 250.0 mg/dL (0.0-11.9)
[2022-06-25 23:35] LABS: Parathyroid Intact 47 pg/mL (14-64)
[2022-06-26 12:17] LABS: Vitamin D 25 Hydroxy 57 ng/mL (30-100)
== END 2022-06-21 08:46 | disposition home or self-care (01) ==
LOC: CHSLAB 08:48
PROVIDERS: PCP Internal Medicine; Visit Provider Internal Medicine Nephrology
DX: M10.9 Gout, unspecified (principal); I50.9 Heart failure, unspecified; N18.4 Chronic kidney disease, stage 4 (severe)
CPT/HCPCS: 36415; 80053; 81001; 82306; 82570; 83970; 84100; 84156; 85025

== ENCOUNTER 2022-08-23 07:05 | Outpatient (CLI) | payer MEDICARE, SELFPAY ==
[2022-08-23 07:21] LABS: Basophils Absolute Auto 0.06 K/mm3 (0.00-0.10); Basophils Percent Auto 0.7 % (0.0-1.0); Eosinophils Absolute Auto 0.19 K/mm3 (0.02-0.50); Eosinophils Percent Auto 2.1 % (1.0-6.0); Hemoglobin 16.5 g/dL (12.4-15.3); Immature Granulocyte Absolute 0.04 K/mm3 (0.00-0.00); Immature Granulocyte Percent A 0.4 % (0.0-0.0); Lymphocytes Absolute Auto 1.71 K/mm3 (1.10-4.50); Lymphocytes Percent Auto 19.1 % (18.0-42.0); Mean Corpuscular Hemoglobin 33.3 pg (27.0-31.0); Mean Corpuscular Volume 100.8 fL (78.0-102.0); Monocytes Absolute Auto 0.88 K/mm3 (0.10-0.90); Monocytes Percent Auto 9.8 % (2.0-11.0); Neutrophils Absolute Auto 6.1 K/mm3 (1.7-7.2); Neutrophils Percent Auto 67.9 % (50.0-70.0); Platelet Count Result 147 K/mm3 (150-420); Red Blood Count 4.96 M/mm3 (4.70-6.10); Red Cell Distribution Width 13.8 % (11.6-14.4)
[2022-08-23 07:24] LABS: Appearance Urine Clear (Clear); Bilirubin Urine Negative (Negative); Glucose Urine UA Negative (Negative); Ketones Urine Negative (Negative); Leukocyte Esterase Ur Negative (Negative); Nitrate Urine Negative (Negative); Protein Urine 2+ (Negative); Specific Grav Ur 1.025 (1.010-1.020); Urobilinogen Urine 0.2 mg/dL (0.2-1.0); pH Urine 6.5 (5.0-8.0)
[2022-08-23 07:34] LABS: Add Urine Microscopic? YES; Bacteria Urine Trace /hpf; Blood Urine Trace-Intact (Negative); Color Urine Light Yellow (Yellow); WBC Urine 0-3 /hpf (0-3)
[2022-08-23 07:40] LABS: Hemoglobin A1C 6.7 % (<5.7)
[2022-08-23 07:45] LABS: Creatinine Urine 70.81 mg/dL (40-278)
[2022-08-23 09:15] LABS: Anion Gap 8 mmol/L (8-16); Blood Urea Nitrogen 48 mg/dL (7-18); Carbon Dioxide 32 mmol/L (21-32); Chloride 102 mmol/L (98-108); Estimated Glomerular Filt Rate 27; Glucose 142 mg/dL (70-99); Potassium 4.5 mmol/L (3.5-5.1); Sodium 142 mmol/L (136-145)
[2022-08-23 09:16] LABS: Alanine Aminotransferase 41 U/L (16-63); Albumin Level 3.9 g/dL (3.4-5.0); Alkaline Phosphatase 88 U/L (46-116); Aspartate Amino Transferase 30 U/L (15-37); Bilirubin,Total 0.7 mg/dL (0.00-1.00); Calcium 9.2 mg/dL (8.5-10.1); Cholesterol 137 mg/dL (0-200); Creatine Kinase 70 U/L (39-308); HDL Direct 50 mg/dL (40-60); LDL Cholesterol Calculated 71 mg/dL (<130); Osmolality Calculated 308 mOsm/kg (285-295); Total Protein 7.6 g/dL (6.4-8.2); Triglycerides 78 mg/dL (0-150); Uric Acid 5.5 mg/dL (3.5-7.2)
[2022-08-23 09:18] LABS: MALB Creatinine Ratio 564.8 mg/g (0-30); Microalbumin Urine Random > 400.0 mg/L
== END 2022-08-23 07:06 | disposition home or self-care (01) ==
LOC: CHSLAB 07:08
PROVIDERS: PCP Internal Medicine; Visit Provider Internal Medicine
DX: E78.2 Mixed hyperlipidemia (principal); E11.40 Type 2 diabetes mellitus with diabetic neuropathy, unspecified; I12.9 Hypertensive chronic kidney disease with stage 1 through stage 4 chronic kidney disease, or unspecified chronic kidney disease; N18.4 Chronic kidney disease, stage 4 (severe); E79.0 Hyperuricemia without signs of inflammatory arthritis and tophaceous disease; D75.1 Secondary polycythemia
CPT/HCPCS: 36415; 80053; 80061; 81001; 82043; 82550; 83036; 84550; 85025

== ENCOUNTER 2022-10-29 07:17 | Outpatient (CLI) | payer MEDICARE, SELFPAY ==
[2022-10-29 08:12] LABS: Basophils Absolute Auto 0.04 K/mm3 (0.00-0.10); Basophils Percent Auto 0.5 % (0.0-1.0); Eosinophils Absolute Auto 0.29 K/mm3 (0.02-0.50); Eosinophils Percent Auto 3.3 % (1.0-6.0); Hematocrit 48.8 % (37.0-46.0); Hemoglobin 15.6 g/dL (12.4-15.3); Immature Granulocyte Absolute 0.05 K/mm3 (0.00-0.00); Immature Granulocyte Percent A 0.6 % (0.0-0.0); Lymphocytes Absolute Auto 1.65 K/mm3 (1.10-4.50); Lymphocytes Percent Auto 18.9 % (18.0-42.0); Mean Corpuscular Hemoglobin 32.2 pg (27.0-31.0); Mean Corpuscular Volume 100.6 fL (78.0-102.0); Mean Platelet Volume 11.5 fl (8.7-11.0); Monocytes Absolute Auto 0.89 K/mm3 (0.10-0.90); Monocytes Percent Auto 10.2 % (2.0-11.0); Neutrophils Absolute Auto 5.8 K/mm3 (1.7-7.2); Neutrophils Percent Auto 66.5 % (50.0-70.0); Platelet Count Result 150 K/mm3 (150-420); Red Blood Count 4.85 M/mm3 (4.70-6.10); White Blood Count 8.7 K/mm3 (4.8-10.8)
[2022-10-29 08:41] LABS: Alanine Aminotransferase 41 U/L (16-63); Albumin Level 3.7 g/dL (3.4-5.0); Alkaline Phosphatase 83 U/L (46-116); Anion Gap 7 mmol/L (8-16); Aspartate Amino Transferase 29 U/L (15-37); Bilirubin,Total 0.7 mg/dL (0.00-1.00); Blood Urea Nitrogen 42 mg/dL (7-18); Carbon Dioxide 32 mmol/L (21-32); Chloride 103 mmol/L (98-108); Creatinine Urine 73.58 mg/dL (40-278); Estimated Glomerular Filt Rate 29; Glucose 152 mg/dL (70-99); Osmolality Calculated 307 mOsm/kg (285-295); Phosphorus 4.4 mg/dL (2.6-4.7); Potassium 4.3 mmol/L (3.5-5.1); Sodium 142 mmol/L (136-145); Total Protein 7.4 g/dL (6.4-8.2)
[2022-10-29 08:42] LABS: Total Protein Urine Random > 250.0 mg/dL (0.0-11.9)
[2022-10-31 20:06] LABS: Parathyroid Intact 71 pg/mL (14-64)
== END 2022-10-29 07:18 | disposition home or self-care (01) ==
LOC: CHSLAB 07:19
PROVIDERS: PCP Internal Medicine; Visit Provider Internal Medicine Nephrology
DX: M10.9 Gout, unspecified (principal); I50.9 Heart failure, unspecified; N18.4 Chronic kidney disease, stage 4 (severe)
CPT/HCPCS: 36415; 80053; 82570; 83970; 84100; 84156; 85025

== ENCOUNTER 2022-11-14 11:28 | Outpatient (CLI) | payer MEDICARE, SELFPAY ==
[2022-11-14 11:51] LABS: Basophils Absolute Auto 0.04 K/mm3 (0.00-0.10); Basophils Percent Auto 0.4 % (0.0-1.0); Eosinophils Absolute Auto 0.23 K/mm3 (0.02-0.50); Eosinophils Percent Auto 2.5 % (1.0-6.0); Hematocrit 45.5 % (37.0-46.0); Hemoglobin 14.7 g/dL (12.4-15.3); Immature Granulocyte Absolute 0.06 K/mm3 (0.00-0.00); Immature Granulocyte Percent A 0.7 % (0.0-0.0); Lymphocytes Absolute Auto 1.47 K/mm3 (1.10-4.50); Mean Corpuscular HGB Conc 32.3 g/dL (32.0-36.0); Mean Corpuscular Hemoglobin 32.5 pg (27.0-31.0); Mean Corpuscular Volume 100.7 fL (78.0-102.0); Mean Platelet Volume 11.2 fl (8.7-11.0); Monocytes Absolute Auto 0.88 K/mm3 (0.10-0.90); Monocytes Percent Auto 9.6 % (2.0-11.0); Neutrophils Absolute Auto 6.5 K/mm3 (1.7-7.2); Neutrophils Percent Auto 70.8 % (50.0-70.0); Platelet Count Result 154 K/mm3 (150-420); Red Blood Count 4.52 M/mm3 (4.70-6.10); White Blood Count 9.2 K/mm3 (4.8-10.8)
[2022-11-14 12:20] LABS: Anion Gap 9 mmol/L (8-16); Blood Urea Nitrogen 55 mg/dL (7-18); Calcium 9.3 mg/dL (8.5-10.1); Carbon Dioxide 31 mmol/L (21-32); Chloride 102 mmol/L (98-108); Estimated Glomerular Filt Rate 27; Glucose 195 mg/dL (70-99); Osmolality Calculated 314 mOsm/kg (285-295); Potassium 4.5 mmol/L (3.5-5.1); Sodium 142 mmol/L (136-145)
== END 2022-11-14 11:29 | disposition home or self-care (01) ==
LOC: CHSLAB 11:36
PROVIDERS: PCP Internal Medicine
DX: E11.65 Type 2 diabetes mellitus with hyperglycemia (principal); Z95.810 Presence of automatic (implantable) cardiac defibrillator
CPT/HCPCS: 36415; 80048; 85025

== ENCOUNTER 2022-11-28 08:08 | Outpatient (CLI) | payer MEDICARE, SELFPAY ==
[2022-11-28 08:26] LABS: Basophils Absolute Auto 0.03 K/mm3 (0.00-0.10); Basophils Percent Auto 0.3 % (0.0-1.0); Hematocrit 48.1 % (37.0-46.0); Hemoglobin 15.8 g/dL (12.4-15.3); Immature Granulocyte Absolute 0.03 K/mm3 (0.00-0.00); Immature Granulocyte Percent A 0.3 % (0.0-0.0); Lymphocytes Absolute Auto 1.46 K/mm3 (1.10-4.50); Lymphocytes Percent Auto 14.9 % (18.0-42.0); Mean Corpuscular HGB Conc 32.8 g/dL (32.0-36.0); Mean Corpuscular Hemoglobin 32.9 pg (27.0-31.0); Mean Corpuscular Volume 100.2 fL (78.0-102.0); Mean Platelet Volume 10.8 fl (8.7-11.0); Monocytes Absolute Auto 1.05 K/mm3 (0.10-0.90); Monocytes Percent Auto 10.7 % (2.0-11.0); Neutrophils Percent Auto 71.8 % (50.0-70.0); Platelet Count Result 144 K/mm3 (150-420); Red Cell Distribution Width 14.1 % (11.6-14.4); White Blood Count 9.8 K/mm3 (4.8-10.8)
[2022-11-28 08:34] LABS: Hemoglobin A1C 6.7 % (<5.7)
[2022-11-28 08:36] LABS: Appearance Urine Clear (Clear); Bilirubin Urine Negative (Negative); Blood Urine Negative (Negative); Color Urine Light Yellow (Yellow); Glucose Urine UA Negative (Negative); Ketones Urine Negative (Negative); Leukocyte Esterase Ur Negative (Negative); Nitrate Urine Negative (Negative); Protein Urine 3+ (Negative); Specific Grav Ur 1.025 (1.010-1.020); Urobilinogen Urine 0.2 mg/dL (0.2-1.0); pH Urine 6.5 (5.0-8.0)
[2022-11-28 08:42] LABS: Add Urine Microscopic? YES; Bacteria Urine Rare /hpf; RBC Urine None seen /hpf (0-2); WBC Urine None seen /hpf (0-3)
[2022-11-28 08:52] LABS: Creatinine Urine 88.88 mg/dL (40-278)
[2022-11-28 08:56] LABS: Microalbumin Urine Random > 400.0 mg/L
[2022-11-28 09:31] LABS: Alanine Aminotransferase 28 U/L (16-63); Albumin Level 3.8 g/dL (3.4-5.0); Alkaline Phosphatase 82 U/L (46-116); Anion Gap 5 mmol/L (8-16); Aspartate Amino Transferase 27 U/L (15-37); Bilirubin,Total 0.9 mg/dL (0.00-1.00); Blood Urea Nitrogen 41 mg/dL (7-18); Calcium 9.1 mg/dL (8.5-10.1); Carbon Dioxide 33 mmol/L (21-32); Chloride 104 mmol/L (98-108); Cholesterol 124 mg/dL (0-200); Creatine Kinase 51 U/L (39-308); Estimated Glomerular Filt Rate 29; Free T3 1.94 pg/mL (2.18-3.98); Free T4 Free Thyroxine 0.83 ng/dL (0.76-1.46); Glucose 134 mg/dL (70-99); HDL Direct 49 mg/dL (40-60); LDL Cholesterol Calculated 60 mg/dL (<130); NT Pro B Type Natriuretic Pept 3918 pg/mL (0-450); Osmolality Calculated 306 mOsm/kg (285-295); Potassium 4.4 mmol/L (3.5-5.1); Prostate Specific Antigen 0.6 ng/mL (< OR = 4.0); Sodium 142 mmol/L (136-145); Thyroid Stimulating Hormone 1.93 uIU/mL (0.36-3.74); Total Protein 7.7 g/dL (6.4-8.2); Triglycerides 76 mg/dL (0-150); Uric Acid 4.8 mg/dL (3.5-7.2); Vitamin B12 794 pg/mL (193-986)
== END 2022-11-28 08:09 | disposition home or self-care (01) ==
LOC: CHSLAB 08:12
PROVIDERS: PCP Internal Medicine; Visit Provider Internal Medicine
DX: E11.40 Type 2 diabetes mellitus with diabetic neuropathy, unspecified (principal); C63.0 Malignant neoplasm of epididymis; N18.30 Chronic kidney disease, stage 3 unspecified; I10 Essential (primary) hypertension; I50.22 Chronic systolic (congestive) heart failure; E79.0 Hyperuricemia without signs of inflammatory arthritis and tophaceous disease; Z12.5 Encounter for screening for malignant neoplasm of prostate
CPT/HCPCS: 36415; 80053; 80061; 81001; 82043; 82550; 82607; 83036; 83880; 84153; 84439; 84443; 84481; 84550; 85025; G0103

== ENCOUNTER 2023-02-21 08:41 | Outpatient (CLI) | payer MEDICARE, SELFPAY ==
[2023-02-21 09:02] LABS: Basophils Absolute Auto 0.05 K/mm3 (0.00-0.10); Basophils Percent Auto 0.6 % (0.0-1.0); Eosinophils Absolute Auto 0.21 K/mm3 (0.02-0.50); Eosinophils Percent Auto 2.3 % (1.0-6.0); Hematocrit 49.2 % (37.0-46.0); Hemoglobin 16.2 g/dL (12.4-15.3); Immature Granulocyte Absolute 0.03 K/mm3 (0.00-0.00); Immature Granulocyte Percent A 0.3 % (0.0-0.0); Lymphocytes Absolute Auto 1.41 K/mm3 (1.10-4.50); Lymphocytes Percent Auto 15.7 % (18.0-42.0); Mean Corpuscular HGB Conc 32.9 g/dL (32.0-36.0); Mean Corpuscular Volume 100.2 fL (78.0-102.0); Mean Platelet Volume 10.9 fl (8.7-11.0); Monocytes Absolute Auto 0.74 K/mm3 (0.10-0.90); Monocytes Percent Auto 8.2 % (2.0-11.0); Neutrophils Absolute Auto 6.5 K/mm3 (1.7-7.2); Neutrophils Percent Auto 72.9 % (50.0-70.0); Platelet Count Result 168 K/mm3 (150-420); Red Blood Count 4.91 M/mm3 (4.70-6.10); Red Cell Distribution Width 13.6 % (11.6-14.4)
[2023-02-21 09:04] LABS: Appearance Urine Clear (Clear); Bilirubin Urine Negative (Negative); Blood Urine Trace-Intact (Negative); Color Urine Light Yellow (Yellow); Glucose Urine UA Negative (Negative); Ketones Urine Negative (Negative); Leukocyte Esterase Ur Negative LEU/UL (Negative); Nitrate Urine Negative (Negative); Protein Urine 3+ (Negative); Urobilinogen Urine 0.2 mg/dL (0.2-1.0)
[2023-02-21 09:10] LABS: Add Urine Microscopic? YES; Bacteria Urine Rare /hpf; RBC Urine None seen /hpf (0-2); WBC Urine None seen /hpf (0-3)
[2023-02-21 09:17] LABS: Creatinine Urine 58.35 mg/dL (40-278); Total Protein Urine Random 237.5 mg/dL (0.0-11.9); Ur Ttl Prot Creatinine Ratio 4.07 mg/mg (0-0.20)
[2023-02-21 09:29] LABS: Albumin Level 3.8 g/dL (3.4-5.0); Anion Gap 10 mmol/L (8-16); Blood Urea Nitrogen 61 mg/dL (7-18); Calcium 9.2 mg/dL (8.5-10.1); Carbon Dioxide 28 mmol/L (21-32); Chloride 101 mmol/L (98-108); Estimated Glomerular Filt Rate 23; Glucose 185 mg/dL (70-99); Osmolality Calculated 310 mOsm/kg (285-295); Potassium 4.8 mmol/L (3.5-5.1); Sodium 139 mmol/L (136-145)
[2023-02-21 09:37] LABS: MALB Creatinine Ratio 685.5 mg/g (0-30); Microalbumin Urine Random > 400.0 mg/L
[2023-02-24 05:22] LABS: Vitamin D 25 Hydroxy 64 ng/mL (30-100)
[2023-02-26 16:22] LABS: Parathyroid Intact 72 pg/mL (14-64)
== END 2023-02-21 08:42 | disposition home or self-care (01) ==
PROVIDERS: PCP Internal Medicine; Visit Provider Internal Medicine Nephrology
DX: M10.9 Gout, unspecified (principal); I50.9 Heart failure, unspecified; N25.81 Secondary hyperparathyroidism of renal origin; I10 Essential (primary) hypertension; E11.65 Type 2 diabetes mellitus with hyperglycemia
CPT/HCPCS: 36415; 80069; 81001; 82043; 82306; 82570; 83036; 83970; 84156; 85025

== ENCOUNTER 2023-02-26 07:25 | Outpatient (CLI) | payer MEDICARE, SELFPAY ==
[2023-02-26 08:33] LABS: Anion Gap 9 mmol/L (8-16); Blood Urea Nitrogen 60 mg/dL (7-18); Carbon Dioxide 29 mmol/L (21-32); Chloride 103 mmol/L (98-108); Estimated Glomerular Filt Rate 27; Glucose 195 mg/dL (70-99); Osmolality Calculated 313 mOsm/kg (285-295); Potassium 4.7 mmol/L (3.5-5.1); Sodium 141 mmol/L (136-145)
== END 2023-02-26 07:26 | disposition home or self-care (01) ==
LOC: CHSLAB 07:28
PROVIDERS: PCP Internal Medicine; Visit Provider Internal Medicine
DX: N18.4 Chronic kidney disease, stage 4 (severe) (principal)
CPT/HCPCS: 36415; 80048

== ENCOUNTER 2023-05-28 07:19 | Outpatient (CLI) | payer MEDICARE, SELFPAY ==
[2023-05-28 07:39] LABS: Basophils Absolute Auto 0.04 K/mm3 (0.00-0.10); Basophils Percent Auto 0.5 % (0.0-1.0); Eosinophils Absolute Auto 0.24 K/mm3 (0.02-0.50); Eosinophils Percent Auto 3.1 % (1.0-6.0); Hematocrit 49.1 % (37.0-46.0); Immature Granulocyte Absolute 0.03 K/mm3 (0.00-0.00); Immature Granulocyte Percent A 0.4 % (0.0-0.0); Lymphocytes Absolute Auto 1.62 K/mm3 (1.10-4.50); Lymphocytes Percent Auto 21.2 % (18.0-42.0); Mean Corpuscular HGB Conc 32.6 g/dL (32.0-36.0); Mean Corpuscular Hemoglobin 32.5 pg (27.0-31.0); Mean Corpuscular Volume 99.8 fL (78.0-102.0); Monocytes Absolute Auto 0.82 K/mm3 (0.10-0.90); Monocytes Percent Auto 10.7 % (2.0-11.0); Neutrophils Absolute Auto 4.9 K/mm3 (1.7-7.2); Neutrophils Percent Auto 64.1 % (50.0-70.0); Platelet Count Result 148 K/mm3 (150-420); Red Blood Count 4.92 M/mm3 (4.70-6.10); Red Cell Distribution Width 14.1 % (11.6-14.4); White Blood Count 7.6 K/mm3 (4.8-10.8)
[2023-05-28 07:45] LABS: Appearance Urine Clear (Clear); Bilirubin Urine Negative (Negative); Blood Urine 1+ (Negative); Color Urine Light Yellow (Yellow); Glucose Urine UA 3+ (Negative); Ketones Urine Negative (Negative); Leukocyte Esterase Ur Negative (Negative); Nitrate Urine Negative (Negative); Protein Urine 3+ (Negative); Urobilinogen Urine 0.2 mg/dL (0.2-1.0); pH Urine 6.5 (5.0-8.0)
[2023-05-28 07:50] LABS: Hemoglobin A1C 6.9 % (<5.7)
[2023-05-28 07:52] LABS: Add Urine Microscopic? YES; Bacteria Urine Rare /hpf; WBC Urine None seen /hpf (0-3)
[2023-05-28 08:13] LABS: Creatinine Urine 57.35 mg/dL (40-278)
[2023-05-28 08:15] LABS: Alanine Aminotransferase 46 U/L (16-63); Albumin Level 3.7 g/dL (3.4-5.0); Alkaline Phosphatase 78 U/L (46-116); Anion Gap 7 mmol/L (8-16); Aspartate Amino Transferase 32 U/L (15-37); Bilirubin,Total 0.9 mg/dL (0.00-1.00); Blood Urea Nitrogen 52 mg/dL (7-18); Calcium 9.5 mg/dL (8.5-10.1); Carbon Dioxide 30 mmol/L (21-32); Chloride 104 mmol/L (98-108); Cholesterol 122 mg/dL (0-200); Creatine Kinase 63 U/L (39-308); Estimated Glomerular Filt Rate 26; Glucose 137 mg/dL (70-99); HDL Direct 43 mg/dL (40-60); LDL Cholesterol Calculated 64 mg/dL (<130); Osmolality Calculated 308 mOsm/kg (285-295); Potassium 4.5 mmol/L (3.5-5.1); Sodium 141 mmol/L (136-145); Total Protein 7.3 g/dL (6.4-8.2); Triglycerides 77 mg/dL (0-150)
[2023-05-28 08:17] LABS: MALB Creatinine Ratio 697.4 mg/g (0-30); Microalbumin Urine Random > 400.0 mg/L
== END 2023-05-28 07:20 | disposition home or self-care (01) ==
LOC: CHSLAB 07:20
PROVIDERS: PCP Internal Medicine; Visit Provider Internal Medicine
DX: E79.0 Hyperuricemia without signs of inflammatory arthritis and tophaceous disease (principal); E78.2 Mixed hyperlipidemia; E11.21 Type 2 diabetes mellitus with diabetic nephropathy; N18.4 Chronic kidney disease, stage 4 (severe)
CPT/HCPCS: 36415; 80053; 80061; 81001; 82043; 82550; 83036; 85025

== ENCOUNTER 2023-06-17 07:04 | Outpatient (CLI) | payer MEDICARE, SELFPAY ==
[2023-06-17 07:58] LABS: Basophils Absolute Auto 0.05 K/mm3 (0.00-0.10); Basophils Percent Auto 0.6 % (0.0-1.0); Eosinophils Absolute Auto 0.23 K/mm3 (0.02-0.50); Eosinophils Percent Auto 2.8 % (1.0-6.0); Hematocrit 50.7 % (37.0-46.0); Hemoglobin 16.3 g/dL (12.4-15.3); Immature Granulocyte Absolute 0.04 K/mm3 (0.00-0.00); Immature Granulocyte Percent A 0.5 % (0.0-0.0); Lymphocytes Absolute Auto 1.61 K/mm3 (1.10-4.50); Lymphocytes Percent Auto 19.5 % (18.0-42.0); Mean Corpuscular HGB Conc 32.1 g/dL (32.0-36.0); Mean Corpuscular Hemoglobin 32.5 pg (27.0-31.0); Mean Corpuscular Volume 101.2 fL (78.0-102.0); Mean Platelet Volume 11.7 fl (8.7-11.0); Monocytes Absolute Auto 0.77 K/mm3 (0.10-0.90); Monocytes Percent Auto 9.3 % (2.0-11.0); Neutrophils Absolute Auto 5.5 K/mm3 (1.7-7.2); Neutrophils Percent Auto 67.3 % (50.0-70.0); Platelet Count Result 148 K/mm3 (150-420); Red Blood Count 5.01 M/mm3 (4.70-6.10); White Blood Count 8.2 K/mm3 (4.8-10.8)
[2023-06-17 08:37] LABS: Appearance Urine Clear (Clear); Bilirubin Urine Negative (Negative); Blood Urine Trace-Intact (Negative); Color Urine Light Yellow (Yellow); Glucose Urine UA 3+ (Negative); Ketones Urine Negative (Negative); Leukocyte Esterase Ur Negative LEU/UL (Negative); Nitrate Urine Negative (Negative); Protein Urine 2+ (Negative); Urobilinogen Urine 0.2 mg/dL (0.2-1.0); pH Urine 6.5 (5.0-8.0)
[2023-06-17 08:44] LABS: Add Urine Microscopic? YES; Bacteria Urine Rare /hpf; RBC Urine None seen /hpf (0-2); WBC Urine None seen /hpf (0-3)
[2023-06-17 08:54] LABS: Creatinine Urine 42.32 mg/dL (40-278); Total Protein Urine Random 185.4 mg/dL (0.0-11.9); Ur Ttl Prot Creatinine Ratio 4.38 mg/mg (0-0.20)
[2023-06-17 09:06] LABS: Albumin Level 3.8 g/dL (3.4-5.0); Anion Gap 11 mmol/L (8-16); Blood Urea Nitrogen 49 mg/dL (7-18); Calcium 9.7 mg/dL (8.5-10.1); Carbon Dioxide 27 mmol/L (21-32); Chloride 104 mmol/L (98-108); Estimated Glomerular Filt Rate 26; Glucose 156 mg/dL (70-99); Osmolality Calculated 310 mOsm/kg (285-295); Phosphorus 4.9 mg/dL (2.6-4.7); Potassium 4.4 mmol/L (3.5-5.1); Sodium 142 mmol/L (136-145)
[2023-06-19 20:48] LABS: Parathyroid Intact 52 pg/mL (14-64)
== END 2023-06-17 07:05 | disposition home or self-care (01) ==
LOC: CHSLAB 07:07
PROVIDERS: PCP Internal Medicine; Visit Provider Internal Medicine Nephrology
DX: N18.4 Chronic kidney disease, stage 4 (severe) (principal); R80.9 Proteinuria, unspecified; I50.9 Heart failure, unspecified; E87.5 Hyperkalemia
CPT/HCPCS: 36415; 80069; 81001; 82570; 83970; 84156; 85025

== ENCOUNTER 2023-08-21 09:28 | Outpatient (CLI) | payer MEDICARE, SELFPAY ==
[2023-08-21 09:42] LABS: Appearance Urine Clear (Clear); Bilirubin Urine Negative (Negative); Blood Urine 1+ (Negative); Color Urine Light Yellow (Yellow); Glucose Urine UA 3+ (Negative); Ketones Urine Negative (Negative); Leukocyte Esterase Ur Negative (Negative); Nitrate Urine Negative (Negative); Protein Urine 3+ (Negative); Urobilinogen Urine 0.2 mg/dL (0.2-1.0)
[2023-08-21 09:52] LABS: Add Urine Microscopic? YES; WBC Urine None seen /hpf (0-3)
[2023-08-21 09:53] LABS: Bacteria Urine Rare /hpf
[2023-08-21 10:00] LABS: Hemoglobin A1C 7.3 % (<5.7)
[2023-08-21 10:47] LABS: Alanine Aminotransferase 86 U/L (16-63); Albumin Level 3.8 g/dL (3.4-5.0); Alkaline Phosphatase 79 U/L (46-116); Anion Gap 4 mmol/L (8-16); Aspartate Amino Transferase 45 U/L (15-37); Bilirubin,Total 0.9 mg/dL (0.00-1.00); Blood Urea Nitrogen 47 mg/dL (7-18); Calcium 9.1 mg/dL (8.5-10.1); Carbon Dioxide 37 mmol/L (21-32); Chloride 104 mmol/L (98-108); Estimated Glomerular Filt Rate 24; Glucose 160 mg/dL (70-99); Osmolality Calculated 315 mOsm/kg (285-295); Potassium 4.2 mmol/L (3.5-5.1); Sodium 145 mmol/L (136-145); Total Protein 7.4 g/dL (6.4-8.2)
== END 2023-08-21 09:29 | disposition home or self-care (01) ==
PROVIDERS: PCP Internal Medicine; Visit Provider Internal Medicine
DX: E11.21 Type 2 diabetes mellitus with diabetic nephropathy (principal); E79.0 Hyperuricemia without signs of inflammatory arthritis and tophaceous disease
CPT/HCPCS: 36415; 80053; 81001; 83036

== ENCOUNTER 2023-10-23 07:32 | Outpatient (CLI) | payer MEDICARE, SELFPAY ==
[2023-10-23 07:54] LABS: Basophils Absolute Auto 0.05 K/mm3 (0.00-0.10); Basophils Percent Auto 0.6 % (0.0-1.0); Eosinophils Absolute Auto 0.25 K/mm3 (0.02-0.50); Eosinophils Percent Auto 2.9 % (1.0-6.0); Hematocrit 48.8 % (37.0-46.0); Hemoglobin 15.5 g/dL (12.4-15.3); Immature Granulocyte Absolute 0.03 K/mm3 (0.00-0.00); Immature Granulocyte Percent A 0.3 % (0.0-0.0); Lymphocytes Absolute Auto 1.39 K/mm3 (1.10-4.50); Lymphocytes Percent Auto 16.1 % (18.0-42.0); Mean Corpuscular HGB Conc 31.8 g/dL (32.0-36.0); Mean Corpuscular Hemoglobin 32.3 pg (27.0-31.0); Mean Corpuscular Volume 101.7 fL (78.0-102.0); Mean Platelet Volume 11.2 fl (8.7-11.0); Monocytes Absolute Auto 0.77 K/mm3 (0.10-0.90); Monocytes Percent Auto 8.9 % (2.0-11.0); Neutrophils Absolute Auto 6.2 K/mm3 (1.7-7.2); Neutrophils Percent Auto 71.2 % (50.0-70.0); Platelet Count Result 156 K/mm3 (150-420); Red Cell Distribution Width 14.4 % (11.6-14.4); White Blood Count 8.7 K/mm3 (4.8-10.8)
[2023-10-23 07:55] LABS: Appearance Urine Clear (Clear); Bilirubin Urine Negative (Negative); Blood Urine Trace-Intact (Negative); Color Urine Light Yellow (Yellow); Glucose Urine UA 3+ (Negative); Ketones Urine Negative (Negative); Leukocyte Esterase Ur Negative LEU/UL (Negative); Nitrate Urine Negative (Negative); Protein Urine 2+ (Negative); Urobilinogen Urine 0.2 mg/dL (0.2-1.0)
[2023-10-23 08:06] LABS: Creatinine Urine 21.96 mg/dL (40-278); Ur Ttl Prot Creatinine Ratio 5.15 mg/mg (0-0.20)
[2023-10-23 08:13] LABS: Add Urine Microscopic? YES; Bacteria Urine Rare /hpf; RBC Urine None seen /hpf (0-2); WBC Urine None seen /hpf (0-3)
[2023-10-23 08:35] LABS: Alanine Aminotransferase 52 U/L (16-63); Albumin Level 3.7 g/dL (3.4-5.0); Alkaline Phosphatase 87 U/L (46-116); Anion Gap 8 mmol/L (8-16); Aspartate Amino Transferase 34 U/L (15-37); Blood Urea Nitrogen 49 mg/dL (7-18); Carbon Dioxide 31 mmol/L (21-32); Chloride 103 mmol/L (98-108); Estimated Glomerular Filt Rate 25; Glucose 178 mg/dL (70-99); Osmolality Calculated 311 mOsm/kg (285-295); Phosphorus 4.4 mg/dL (2.6-4.7); Potassium 4.6 mmol/L (3.5-5.1); Sodium 142 mmol/L (136-145); Total Protein 7.4 g/dL (6.4-8.2)
[2023-10-26 21:39] LABS: Parathyroid Intact 102 pg/mL (14-64)
[2023-10-28 22:48] LABS: Vitamin D 25 Hydroxy 59 ng/mL (30-100)
== END 2023-10-23 07:33 | disposition home or self-care (01) ==
LOC: CHSLAB 07:34
PROVIDERS: PCP Internal Medicine; Visit Provider Internal Medicine Nephrology
DX: N18.4 Chronic kidney disease, stage 4 (severe) (principal); I50.9 Heart failure, unspecified; E87.5 Hyperkalemia; R80.9 Proteinuria, unspecified
CPT/HCPCS: 36415; 80053; 81001; 82306; 82570; 83970; 84100; 84156; 85025

== ENCOUNTER 2023-11-25 08:50 | Outpatient (CLI) | payer MEDICARE, SELFPAY ==
[2023-11-25 09:18] LABS: Basophils Absolute Auto 0.05 K/mm3 (0.00-0.10); Basophils Percent Auto 0.6 % (0.0-1.0); Eosinophils Absolute Auto 0.23 K/mm3 (0.02-0.50); Eosinophils Percent Auto 2.5 % (1.0-6.0); Hematocrit 45.4 % (37.0-46.0); Hemoglobin 14.2 g/dL (12.4-15.3); Immature Granulocyte Absolute 0.03 K/mm3 (0.00-0.00); Immature Granulocyte Percent A 0.3 % (0.0-0.0); Lymphocytes Absolute Auto 1.19 K/mm3 (1.10-4.50); Lymphocytes Percent Auto 13.2 % (18.0-42.0); Mean Corpuscular HGB Conc 31.3 g/dL (32.0-36.0); Mean Corpuscular Hemoglobin 32.6 pg (27.0-31.0); Mean Corpuscular Volume 104.4 fL (78.0-102.0); Mean Platelet Volume 11.2 fl (8.7-11.0); Monocytes Percent Auto 8.9 % (2.0-11.0); Neutrophils Absolute Auto 6.7 K/mm3 (1.7-7.2); Neutrophils Percent Auto 74.5 % (50.0-70.0); Nucleated Red Blood Cells Absolute Auto 0.03 K/mm3 (0.00-0.00); Nucleated Red Blood Cells Perc 0.3 % (0-0.0); Platelet Count Result 178 K/mm3 (150-420); Red Blood Count 4.35 M/mm3 (4.70-6.10); Red Cell Distribution Width 15.2 % (11.6-14.4)
[2023-11-25 09:21] LABS: Appearance Urine Clear (Clear); Bilirubin Urine Negative (Negative); Blood Urine 1+ (Negative); Color Urine Light Yellow (Yellow); Glucose Urine UA 3+ (Negative); Ketones Urine Negative (Negative); Leukocyte Esterase Ur Negative (Negative); Nitrate Urine Negative (Negative); Protein Urine 2+ (Negative); Urobilinogen Urine 0.2 mg/dL (0.2-1.0)
[2023-11-25 09:26] LABS: Add Urine Microscopic? YES; Bacteria Urine Trace /hpf; WBC Urine None seen /hpf (0-3)
[2023-11-25 09:31] LABS: Hemoglobin A1C 7.4 % (<5.7)
[2023-11-25 09:35] LABS: Creatinine Urine 33.04 mg/dL (40-278)
[2023-11-25 09:39] LABS: MALB Creatinine Ratio 1210.6 mg/g (0-30); Microalbumin Urine Random > 400.0 mg/L
[2023-11-25 09:57] LABS: Alanine Aminotransferase 31 U/L (16-63); Albumin Level 3.6 g/dL (3.4-5.0); Alkaline Phosphatase 78 U/L (46-116); Anion Gap 10 mmol/L (8-16); Aspartate Amino Transferase 20 U/L (15-37); Bilirubin,Total 1.4 mg/dL (0.00-1.00); Blood Urea Nitrogen 46 mg/dL (7-18); Carbon Dioxide 28 mmol/L (21-32); Chloride 101 mmol/L (98-108); Estimated Glomerular Filt Rate 25; Glucose 167 mg/dL (70-99); Osmolality Calculated 303 mOsm/kg (285-295); Potassium 4.6 mmol/L (3.5-5.1); Sodium 139 mmol/L (136-145); Total Protein 6.9 g/dL (6.4-8.2)
== END 2023-11-25 08:51 | disposition home or self-care (01) ==
LOC: CHSLAB 08:52
PROVIDERS: PCP Internal Medicine; Visit Provider Internal Medicine
DX: I10 Essential (primary) hypertension (principal); E11.65 Type 2 diabetes mellitus with hyperglycemia; N18.30 Chronic kidney disease, stage 3 unspecified
CPT/HCPCS: 36415; 80053; 81001; 82043; 83036; 85025

== ENCOUNTER 2023-12-11 22:38 | Emergency (ER) | payer MEDICARE, OTHER, SELFPAY ==
[2023-12-11] VITALS (12 sets, daily range): BP systolic 122–134; BP diastolic 70–95; PULSE 70–93; RESP 9–22; TEMP 36.7; O2SAT 93–100
--- NOTE | ~2023-12-11 | XR_ITS ---
EXAMINATION: XR chest 1V portable INDICATION: Shortness of breath TECHNIQUE: Portable AP chest at 2310 hours COMPARISON: 06/09/2016 FINDINGS: There are airspace opacities of the right lung base. No pneumothorax is identified. Cardiom egaly is noted. Surgical clips project over the right shoulder. There are changes of cardiac valve bolivar rgery. A triple lead cardiac pacemaker of the left chest wall ends with leads in expected locations. IMPRESSION: 1. Right basilar airspace opacity, consistent with atelectasis versus pneumonia with or without small pleural effusion. Reviewed, dictated and finalized at location F.
--- NOTE | 2023-12-11 22:41 | ECG_ITS ---
Measurements Intervals [place] Rate: 78 P: [place]: 0 QRS: -80 QRSD: 173 T: 83 QT: 479 QTc: 548 Interpretive Statements ELECTRONIC VENTRICULAR PACEMAKER BASELINE ARTIFACT- V1-V2 NO FURTHER INTERPRETATION IS POSSIBLE ATYPICAL ECG NO PREVIOUS ECG AVAILABLE FOR COMPARISON Electronically Signed On 12-12-2023 6:40:42 CDT by Jerel Stubbs D.O.
--- NOTE | 2023-12-11 22:59 | ED.SOB ---
HPI - SOB/Dyspnea General Chief Complaint: Shortness of Breath/Dyspnea Stated Complaint: weakness Time Seen by Provider: 12/11/23 22:45 Source: patient Mode of arrival: ambulatory Limitations: no limitations History of Present Illness HPI Narrative: 78-year-old male, ex-smoker with history hypertension, diabetes mother, CAD status post [place] status post PCI to LAD/ RCA in 2014, CHF with an EF of 22%, atrial fibrillation on Eliquis, status post ICD, PVD, status post MVR, CVA, MARISA/ COPD presents to the ER with a one-week history of -- worsening shortness of breath. the patient uses BiPAP at night. He is not on any supplemental oxygen. The patient is currently Breathing 16 times a minute with oxygen saturation of 95% on room air. -- Increasing generalized weakness. Patient denies any fever or chills. No upper respiratory symptoms. No cough or sputum production. No pleuritic chest pain. The patient had a nuclear stress test 1 week ago. He is due to get a [facility] at [facility] elicited complaint: shortness of breath Pertinent past history: COPD and other ( MARISA) Onset (ago): day(s) ( 7 days) Exacerbating factors: exertion Relieving factors: nothing Known history of: COPD and congestive heart failure Treatment prior to arrival: none Related Data Home oxygen amount: none Home Medications Medication Instructions Recorded Confirmed allopurinol 300 mg tablet 300 mg PO DAILY 08/14/19 aspirin 81 mg tablet,delayed 81 mg PO DAILY 08/14/19 release (Adult Low Dose Aspirin) atorvastatin 80 mg tablet 80 mg PO DAILY 08/14/19 carvedilol 3.125 mg tablet 3.125 mg PO Q12H 08/14/19 furosemide 20 mg tablet 20 mg PO .M,W,F 08/14/19 gabapentin 300 mg capsule 300 mg PO TID 08/14/19 glipizide 5 mg tablet 5 mg PO BID 08/14/19 isosorbide mononitrate 30 mg 30 mg PO DAILY 08/14/19 tablet,extended release 24 hr lisinopril 5 mg tablet 5 mg PO DAILY 08/14/19 patiromer calcium sorbitex 8.4 8.4 gm PO DAILY 08/14/19 gram oral powder packet (Veltassa) tamsulosin 0.4 mg capsule 0.4 mg PO DAILY 08/14/19 Allergies Allergy/AdvReac Type Severity Reaction Status Date / Time No Known Allergies Allergy Verified 12/12/23 00:44 Review of Systems Review of Systems: All systems reviewed & are unremarkable except as noted in HPI and below Constitutional: Constitutional: Reports as per HPI and Reports no additional constitutional complaints Eyes: Eyes: Reports as per HPI and Reports no additional eye complaints ENT: Reports system reviewed and no additional complaints, except as documented and Reports as per HPI Cardiovascular: Cardiovascular: Reports as per HPI and Reports no additional cardiovascular complaints Respiratory: Respiratory: Reports as per HPI, Reports no additional respiratory complaints and Reports dyspnea Gastrointestinal: Gastrointestinal: Reports as per HPI, Reports no additional gastrointestinal complaints and Reports constipation Genitourinary: Genitourinary: Reports no additional male genitourinary complaints and Reports as per HPI Musculoskeletal: Musculoskeletal: Reports no additional musculoskeletal complaints and Reports as per HPI Integumentary/Breasts: Skin/Breast: Reports system reviewed and no additional complaints, except as docu and Reports as per HPI Neurologic: Reports system reviewed and no additional complaints, except as documented and Reports as per HPI Psychiatric: Psychiatric: Reports no additional psychiatric complaints and Reports as per HPI Endocrine: Endocrine: Reports no additional endocrine complaints and Reports as per HPI Hematologic/Lymphatic: Hematologic/Lymphatic: Reports no additional hematologic/lymphatic complaints and Reports as per HPI Allergic/Immunologic: Allergic/Immunologic: Reports no additional allergic/immunologic complaints and Reports as per HPI [facility] Past Medical History Medical History Atrial fibrillation CAD (coronar
[2023-12-11 23:07] LABS: Basophils Absolute Auto 0.04 K/mm3 (0.00-0.10); Basophils Percent Auto 0.5 % (0.0-1.0); Eosinophils Absolute Auto 0.26 K/mm3 (0.02-0.50); Eosinophils Percent Auto 3.1 % (1.0-6.0); Hematocrit 47.5 % (37.0-46.0); Hemoglobin 14.5 g/dL (12.4-15.3); Immature Granulocyte Absolute 0.03 K/mm3 (0.00-0.00); Immature Granulocyte Percent A 0.4 % (0.0-0.0); Lymphocytes Absolute Auto 1.27 K/mm3 (1.10-4.50); Lymphocytes Percent Auto 15.1 % (18.0-42.0); Mean Corpuscular HGB Conc 30.5 g/dL (32-36); Mean Corpuscular Hemoglobin 31.7 pg (27.0-31.0); Mean Corpuscular Volume 103.9 fL (78.0-102.0); Mean Platelet Volume 11.6 fl (8.7-11.0); Monocytes Absolute Auto 0.83 K/mm3 (0.10-0.90); Monocytes Percent Auto 9.9 % (2.0-11.0); Neutrophils Absolute Auto 5.99 K/mm3 (1.70-7.20); Nucleated Red Blood Cells Absolute Auto 0.04 K/mm3 (0.00-0.00); Nucleated Red Blood Cells Perc 0.5 % (0-0.0); Platelet Count Result 158 K/mm3 (150-420); Red Blood Count 4.57 M/mm3 (4.70-6.10); Red Cell Distribution Width 15.3 % (11.6-14.4); White Blood Count 8.4 K/mm3 (4.8-10.8)
[2023-12-11 23:21] LABS: Base Excess ABG 0.1 mmol/L (0-2); HCO3 ABG 24.9 mmol/L (23-29); Oxygen Content ABG 18.3 %vol (16.0-22.0); Oxygen Saturation ABG 92.5 % (95-97); Oxyhemoglobin 91.5 % (94-100); PCO2 ABG 41.2 mmHg (35-45); PO2 ABG 66.3 mmHg (75-85); Total Hemoglobin 14.2 g/dL (12.0-18.0)
[2023-12-11 23:22] LABS: Device ROOM AIR; Modified Allen's Test Pass; Site Drawn RIGHT RADIAL
[2023-12-11 23:24] LABS: Lactic Acid Reflex 1.4 mmol/L (0.4-2.0)
[2023-12-11 23:25] LABS: Alanine Aminotransferase 29 U/L (16-63); Albumin Level 3.4 g/dL (3.4-5.0); Alkaline Phosphatase 78 U/L (46-116); Blood Urea Nitrogen 55 mg/dL (7-18); Calcium 9.1 mg/dL (8.5-10.1); Carbon Dioxide 29 mmol/L (21-32); Estimated CRCL calculation 26 ml/min; Estimated Glomerular Filt Rate 22; Glucose 163 mg/dL (70-99); NT Pro B Type Natriuretic Pept 8985 pg/mL (0-450); Total Protein 7.4 g/dL (6.4-8.2); Troponin I 29.5 ng/L (0.00-60.4)
--- NOTE | 2023-12-11 23:49 | PC.NURSE ---
patient accidentally pressed call light, special procedures tech at bedside for update. patient denies needs, spouse at bedside. call light within reach.
[2023-12-11 23:57] LABS: Sodium 137 mmol/L (136-145)
[2023-12-11 23:58] LABS: Anion Gap 0 mmol/L (8-16); Aspartate Amino Transferase 26 U/L (15-37); Chloride 108 mmol/L (98-108); Magnesium 2.6 mg/dL (1.8-2.4); Osmolality Calculated 303 mOsm/kg (285-295)
[2023-12-12] VITALS (7 sets, daily range): BP systolic 126–131; BP diastolic 84–95; PULSE 70–76; RESP 13–20; TEMP 36.7; O2SAT 90–96
[2023-12-12 00:04] LABS: SARS-CoV-2 RNA PCR Negative (Negative)
[2023-12-12 00:07] LABS: Influenza A QL RT-PCR Negative (Negative); Influenza B QL RT-PCR Negative (Negative); RSV RNA, RT-PCR Negative (Negative)
--- NOTE | 2023-12-12 00:17 | PC.NURSE ---
several family members arrived at this time. patient and spouse update provided. patient given ice chips per request. vss. RN monitoring.
--- NOTE | 2023-12-12 00:26 | PC.NURSE ---
ERP at bedside for patient update including results and plan.
[2023-12-12] MEDS: AZITHROMYCIN 250 MG TABLET 500 MG PO (00:37)
--- NOTE | 2023-12-12 00:39 | PC.NURSE ---
patient medicated, ERP remains at bedside speaking with patient, his spouse and his family regarding results and plan of care.
[2023-12-12 11:22] LABS: INR 1.2
== END 2023-12-12 01:09 | disposition home or self-care (01) ==
PROVIDERS: Emergency Provider Internal Medicine Critical Care Medicine
DX: R06.02 Shortness of breath (principal); I50.22 Chronic systolic (congestive) heart failure; N17.9 Acute kidney failure, unspecified; N18.4 Chronic kidney disease, stage 4 (severe); I25.10 Atherosclerotic heart disease of native coronary artery without angina pectoris; I48.91 Unspecified atrial fibrillation; Z79.01 Long term (current) use of anticoagulants; I13.0 Hypertensive heart and chronic kidney disease with heart failure and stage 1 through stage 4 chronic kidney disease, or unspecified chronic kidney disease; Z95.0 Presence of cardiac pacemaker; Z20.822 Contact with and (suspected) exposure to COVID-19
CPT/HCPCS: 36415; 36600; 71045; 80053; 82805; 83605; 83735; 83880; 84484; 85025; 85610; 87637; 93005; 99284; A9270

== ENCOUNTER 2024-01-14 11:35 | Outpatient (CLI) | payer MEDICARE, SELFPAY ==
[2024-01-14 12:04] LABS: Basophils Absolute Auto 0.06 K/mm3 (0.00-0.10); Basophils Percent Auto 0.7 % (0.0-1.0); Eosinophils Absolute Auto 0.13 K/mm3 (0.02-0.50); Eosinophils Percent Auto 1.5 % (1.0-6.0); Hematocrit 43.7 % (37.0-46.0); Hemoglobin 14.1 g/dL (12.4-15.3); Immature Granulocyte Absolute 0.05 K/mm3 (0.00-0.00); Immature Granulocyte Percent A 0.6 % (0.0-0.0); Lymphocytes Absolute Auto 1.11 K/mm3 (1.10-4.50); Mean Corpuscular HGB Conc 32.3 g/dL (32-36); Mean Corpuscular Hemoglobin 31.5 pg (27.0-31.0); Mean Corpuscular Volume 97.5 fL (78.0-102.0); Mean Platelet Volume 10.6 fl (8.7-11.0); Monocytes Absolute Auto 0.61 K/mm3 (0.10-0.90); Monocytes Percent Auto 7.2 % (2.0-11.0); Neutrophils Absolute Auto 6.55 K/mm3 (1.70-7.20); Platelet Count Result 226 K/mm3 (150-420); Red Blood Count 4.48 M/mm3 (4.70-6.10); Red Cell Distribution Width 14.6 % (11.6-14.4); White Blood Count 8.5 K/mm3 (4.8-10.8)
[2024-01-14 12:07] LABS: Appearance Urine Clear (Clear); Bilirubin Urine Negative (Negative); Blood Urine 1+ (Negative); Color Urine Light Yellow (Yellow); Glucose Urine UA 3+ (Negative); Ketones Urine Negative (Negative); Leukocyte Esterase Ur Negative (Negative); Nitrate Urine Negative (Negative); Protein Urine 2+ (Negative); Specific Grav Ur 1.015 (1.010-1.020); Urobilinogen Urine 0.2 mg/dL (0.2-1.0)
[2024-01-14 12:12] LABS: Add Urine Microscopic? YES; Bacteria Urine Trace /hpf; Squamous Epithelial Cell Urine Few /hpf (Few); WBC Urine None seen /hpf (0-3)
[2024-01-14 13:02] LABS: Anion Gap 10 mmol/L (4-12); Blood Urea Nitrogen 70 mg/dL (7-18); Calcium 9.4 mg/dL (8.5-10.1); Carbon Dioxide 31 mmol/L (21-32); Chloride 100 mmol/L (98-108); Estimated Glomerular Filt Rate 24; Glucose 222 mg/dL (70-99); NT Pro B Type Natriuretic Pept 9949 pg/mL (0-450); Osmolality Calculated 319 mOsm/kg (285-295); Potassium 3.9 mmol/L (3.5-5.1); Prostate Specific Antigen 9.1 ng/mL (< OR = 4.0); Sodium 141 mmol/L (136-145)
== END 2024-01-14 11:36 | disposition home or self-care (01) ==
LOC: CHSLAB 11:37
PROVIDERS: PCP Internal Medicine; Visit Provider Internal Medicine
DX: R30.0 Dysuria (principal); N41.9 Inflammatory disease of prostate, unspecified; Z12.5 Encounter for screening for malignant neoplasm of prostate; I50.9 Heart failure, unspecified
CPT/HCPCS: 36415; 80048; 81001; 83880; 84153; 85025; 87077; 87086; 87088; 87181; G0103

== ENCOUNTER 2024-01-16 09:33 | Outpatient (RCR) | payer MEDICARE, OTHER, SELFPAY ==
--- NOTE | 2024-01-16 10:47 | OPREHPOC ---
Outpatient Therapy Plan of Care This is a Multidisciplinary Plan of Care that may contain components documented by all disciplines (PT, OT, and ST.) PT Problem 1 PT Problem #1 Knowledge Deficit PT Goal 1 Goal 1. independent and compliant with HEP Target Visit 4 PT Problem 2 PT Problem #2 Impaired Strength PT Goal 1 Goal 1. improve bilateral hip strength to 4+/5 or better overall 2. improve bilateral knee strength to 5/5 3. improve bilateral ankle DF/PF to 4+/5 or better Target Visit 9 PT Problem 3 PT Problem #3 Impaired Functional Mobil PT Goal 1 Goal 1. tinetti to display moderate fall risk or less 2. patient to complete TUG in less than 10 seconds safely 3. patient to complete 5x sit to sales and marketing administrator less 10 seconds safely 4. patient to ambulate 1000ft or more in 6 minute walk test. 5. no falls reported since starting skilled PT. Target Visit 9
--- NOTE | 2024-01-16 10:47 | PTOPEVAL1 ---
Assessment and note entered by JT File, PT Evaluation Information Assessment Status Evaluation Diagnosis physical debility Onset 01/06/24 Subjective Information patient reports he has not been to therapy for a few years. he reports he does admit he has not been taking care of himself. he reports he has been in and out of the hospital recently due to having fluid on his lungs. he reports he has been out of the hospital a week. he reports he did have some therapy at the hospital prior to coming home . he reports he is home now. he reports he is seeking additional outpatient therapy for increased strength, balance, and endurance. he reports he does still have issues with balance. he reports he does have a history of a stroke. he reports he is using a cane now since being in the hospital. he reports prior to being admitted to the hospital, he was using a wheelchair due to weakness in his legs. he reports he has had no falls. Reported Pain Level Pain Score 0: Self Report Assessment PT Clinical Summary mr. pantoja is a pleasant 78 yo man who presents to skilled PT services for evaluation and treatment of physical decline/debility. he was recently admitted to the hospital and then skilled swing bed rehab for weakness following other medical issues. he now presents with continued deficits in strength, endurance, and balance. he would benefit from continued skilled PT to address his objective/functional deficits and return to his prior level functional activities/quality of life. Plan of Care Interventions Gait Training,Neuro Re-education,Patient/Caregiver Educati,Therapeutic Activities,Therapeutic Exercise PT Services Indicated Yes Treatment Frequency and 3x weekly for 9 visits Duration These treatments will address the objective and functional deficits as defined above. The patient will be advanced safely and appropriately in order for the patient to progress towards his/her prior level of function. Additional exercises will be introduced and as well as a comprehensive home exercise program upon discharge, if needed, ?to ensure carryover of functional gains achieved in the clinic. This treatment plan has been reviewed and agreement upon by the patient.
--- NOTE | 2024-02-10 13:09 | OPREHPOC ---
Outpatient Therapy Plan of Care This is a Multidisciplinary Plan of Care that may contain components documented by all disciplines (PT, OT, and ST.) PT Problem 1 PT Problem #1 Knowledge Deficit PT Goal 1 Goal 1. independent and compliant with HEP Target Visit 4 Progress Met PT Problem 2 PT Problem #2 Impaired Strength PT Goal 1 Goal 1. improve bilateral hip strength to 4+/5 or better overall 2. improve bilateral knee strength to 5/5. met 3. improve bilateral ankle DF/PF to 4+/5 or better . met Target Visit 9 Progress Partially Met PT Problem 3 PT Problem #3 Impaired Functional Mobil PT Goal 1 Goal 1. tinetti to display moderate fall risk or less. met 2. patient to complete TUG in less than 10 seconds safely. not met 3. patient to complete 5x sit to business support assistant less 10 seconds safely. not met 4. patient to ambulate 1000ft or more in 6 minute walk test. not met 5. no falls reported since starting skilled PT. met Target Visit 9 Progress Partially Met
--- NOTE | 2024-02-10 13:09 | OPREHPOC ---
Outpatient Therapy Plan of Care This is a Multidisciplinary Plan of Care that may contain components documented by all disciplines (PT, OT, and ST.) PT Problem 1 PT Problem #1 Knowledge Deficit PT Goal 1 Goal 1. independent and compliant with HEP Target Visit 4 Progress Met PT Problem 2 PT Problem #2 Impaired Strength PT Goal 1 Goal 1. improve bilateral hip strength to 4+/5 or better overall 2. improve bilateral knee strength to 5/5. met 3. improve bilateral ankle DF/PF to 4+/5 or better . met Target Visit 9 Progress Partially Met PT Problem 3 PT Problem #3 Impaired Functional Mobil PT Goal 1 Goal 1. tinetti to display moderate fall risk or less. met 2. patient to complete TUG in less than 10 seconds safely. not met 3. patient to complete 5x sit to linux engineer less 10 seconds safely. not met 4. patient to ambulate 1000ft or more in 6 minute walk test. not met 5. no falls reported since starting skilled PT. met Target Visit 9 Progress Partially Met
--- NOTE | 2024-02-10 13:09 | PTOPDC ---
Assessment and note entered by JT File, PT Evaluation Information Assessment Status Discharge Diagnosis physical debility Onset 01/06/24 Subjective Information patient reports he has not been to therapy for a few years. he reports he does admit he has not been taking care of himself. he reports he has been in and out of the hospital recently due to having fluid on his lungs. he reports he has been out of the hospital a week. he reports he did have some therapy at the hospital prior to coming home . he reports he is home now. he reports he is seeking additional outpatient therapy for increased strength, balance, and endurance. he reports he does still have issues with balance. he reports he does have a history of a stroke. he reports he is using a cane now since being in the hospital. he reports prior to being admitted to the hospital, he was using a wheelchair due to weakness in his legs. he reports he has had no falls. Reported Pain Level Pain Score 0: Self Report Assessment PT Clinical Summary mr. pantoja presents to skilled PT for his 9th skilled therapy visit today. he displays improved strength, endurance, balance, and overall functional mobility. he has met goals for HEP performance, and partial progress towards strength and functional goals. he is having surgery in about 1 week for valve replacement. as of this date, patient will be DC'd to an independent HEP, and will join fall prevention class/workout group on his own. Plan of Care PT Services Indicated Yes
== END 2024-02-10 13:23 | disposition home or self-care (01) ==
LOC: CHSPT 09:33
PROVIDERS: Visit Provider Physical Medicine & Rehabilitation
DX: R53.81 Other malaise (principal)
CPT/HCPCS: 97110; 97112; 97161; 97530; 97750

== ENCOUNTER 2024-01-27 07:06 | Outpatient (CLI) | payer MEDICARE, SELFPAY ==
[2024-01-27 07:30] LABS: Appearance Urine Clear (Clear); Basophils Absolute Auto 0.06 K/mm3 (0.00-0.10); Basophils Percent Auto 0.7 % (0.0-1.0); Bilirubin Urine Negative (Negative); Blood Urine 2+ (Negative); Color Urine Light Yellow (Yellow); Eosinophils Percent Auto 3.6 % (1.0-6.0); Glucose Urine UA 3+ (Negative); Hematocrit 46.9 % (37.0-46.0); Hemoglobin 14.8 g/dL (12.4-15.3); Immature Granulocyte Absolute 0.04 K/mm3 (0.00-0.00); Immature Granulocyte Percent A 0.5 % (0.0-0.0); Ketones Urine Negative (Negative); Leukocyte Esterase Ur Negative (Negative); Lymphocytes Absolute Auto 1.64 K/mm3 (1.10-4.50); Lymphocytes Percent Auto 19.6 % (18.0-42.0); Mean Corpuscular HGB Conc 31.6 g/dL (32-36); Mean Corpuscular Hemoglobin 30.9 pg (27.0-31.0); Mean Corpuscular Volume 97.9 fL (78.0-102.0); Mean Platelet Volume 11.2 fl (8.7-11.0); Monocytes Absolute Auto 0.72 K/mm3 (0.10-0.90); Monocytes Percent Auto 8.6 % (2.0-11.0); Neutrophils Absolute Auto 5.61 K/mm3 (1.70-7.20); Nitrate Urine Negative (Negative); Platelet Count Result 206 K/mm3 (150-420); Protein Urine 2+ (Negative); Red Blood Count 4.79 M/mm3 (4.70-6.10); Specific Grav Ur 1.015 (1.010-1.020); Urobilinogen Urine 0.2 mg/dL (0.2-1.0); White Blood Count 8.4 K/mm3 (4.8-10.8); pH Urine 6.5 (5.0-8.0)
[2024-01-27 07:39] LABS: Creatinine Urine 28.86 mg/dL (40-278); Total Protein Urine Random 129.3 mg/dL (0.0-11.9); Ur Ttl Prot Creatinine Ratio 4.48 mg/mg (0-0.20)
[2024-01-27 07:40] LABS: Add Urine Microscopic? YES; Bacteria Urine Rare /hpf; WBC Urine None seen /hpf (0-3)
[2024-01-27 08:24] LABS: Albumin Level 3.8 g/dL (3.4-5.0); Anion Gap 5 mmol/L (4-12); Blood Urea Nitrogen 68 mg/dL (7-18); Carbon Dioxide 37 mmol/L (21-32); Chloride 101 mmol/L (98-108); Estimated Glomerular Filt Rate 22; Glucose 155 mg/dL (70-99); Osmolality Calculated 318 mOsm/kg (285-295); Phosphorus 4.5 mg/dL (2.6-4.7); Prostate Specific Antigen 2.7 ng/mL (< OR = 4.0); Sodium 143 mmol/L (136-145); Uric Acid 5.7 mg/dL (3.5-7.2)
[2024-01-28 14:18] LABS: Parathyroid Intact 35 pg/mL (16-77)
[2024-01-29 04:53] LABS: Vitamin D 25 Hydroxy 72 ng/mL (30-100)
== END 2024-01-27 07:07 | disposition home or self-care (01) ==
LOC: CHSLAB 07:09
PROVIDERS: PCP Internal Medicine; Visit Provider Internal Medicine Nephrology
DX: N41.9 Inflammatory disease of prostate, unspecified (principal); N39.0 Urinary tract infection, site not specified; N18.4 Chronic kidney disease, stage 4 (severe)
CPT/HCPCS: 36415; 80069; 81001; 82306; 82570; 83970; 84153; 84156; 84550; 85025; 87086

== ENCOUNTER 2024-02-03 12:39 | Outpatient (CLI) | payer MEDICARE, SELFPAY ==
[2024-02-03 13:44] LABS: Albumin Level 3.6 g/dL (3.4-5.0); Anion Gap 9 mmol/L (4-12); Blood Urea Nitrogen 57 mg/dL (7-18); Calcium 8.8 mg/dL (8.5-10.1); Carbon Dioxide 30 mmol/L (21-32); Chloride 101 mmol/L (98-108); Estimated Glomerular Filt Rate 28; Glucose 146 mg/dL (70-99); Osmolality Calculated 308 mOsm/kg (285-295); Phosphorus 4.3 mg/dL (2.6-4.7); Potassium 4.4 mmol/L (3.5-5.1); Sodium 140 mmol/L (136-145)
== END 2024-02-03 12:40 | disposition home or self-care (01) ==
LOC: CHSLAB 12:41
PROVIDERS: PCP Internal Medicine; Visit Provider Internal Medicine Nephrology
DX: N18.4 Chronic kidney disease, stage 4 (severe) (principal)
CPT/HCPCS: 36415; 80069

== ENCOUNTER 2024-03-02 07:02 | Outpatient (CLI) | payer MEDICARE, SELFPAY ==
[2024-03-02 07:17] LABS: Appearance Urine Clear (Clear); Basophils Absolute Auto 0.03 K/mm3 (0.00-0.10); Basophils Percent Auto 0.4 % (0.0-1.0); Bilirubin Urine Negative (Negative); Blood Urine 1+ (Negative); Color Urine Light Yellow (Yellow); Eosinophils Percent Auto 2.7 % (1.0-6.0); Glucose Urine UA 2+ (Negative); Hemoglobin 14.5 g/dL (12.4-15.3); Immature Granulocyte Absolute 0.03 K/mm3 (0.00-0.00); Immature Granulocyte Percent A 0.4 % (0.0-0.0); Ketones Urine Negative (Negative); Leukocyte Esterase Ur Negative (Negative); Lymphocytes Percent Auto 27.2 % (18.0-42.0); Mean Corpuscular HGB Conc 31.5 g/dL (32-36); Mean Corpuscular Hemoglobin 30.7 pg (27.0-31.0); Mean Corpuscular Volume 97.3 fL (78.0-102.0); Mean Platelet Volume 10.9 fl (8.7-11.0); Monocytes Percent Auto 10.9 % (2.0-11.0); Neutrophils Absolute Auto 4.29 K/mm3 (1.70-7.20); Neutrophils Percent Auto 58.4 % (50.0-70.0); Nitrate Urine Negative (Negative); Platelet Count Result 148 K/mm3 (150-420); Protein Urine 2+ (Negative); Red Blood Count 4.73 M/mm3 (4.70-6.10); Red Cell Distribution Width 14.8 % (11.6-14.4); Urobilinogen Urine 0.2 mg/dL (0.2-1.0); White Blood Count 7.4 K/mm3 (4.8-10.8)
[2024-03-02 07:26] LABS: Add Urine Microscopic? YES; Bacteria Urine Rare /hpf; Hemoglobin A1C 7.3 % (<5.7); RBC Urine 0-2 /hpf (0-2); WBC Urine None seen /hpf (0-3)
[2024-03-02 07:30] LABS: Creatinine Urine 21.07 mg/dL (40-278)
[2024-03-02 07:58] LABS: Alanine Aminotransferase 43 U/L (16-63); Albumin Level 3.9 g/dL (3.4-5.0); Alkaline Phosphatase 78 U/L (46-116); Anion Gap 9 mmol/L (4-12); Aspartate Amino Transferase 32 U/L (15-37); Bilirubin,Total 0.7 mg/dL (0.00-1.00); Blood Urea Nitrogen 62 mg/dL (7-18); Calcium 9.1 mg/dL (8.5-10.1); Carbon Dioxide 32 mmol/L (21-32); Chloride 99 mmol/L (98-108); Estimated Glomerular Filt Rate 22; Glucose 109 mg/dL (70-99); Osmolality Calculated 308 mOsm/kg (285-295); Sodium 140 mmol/L (136-145); Total Protein 7.8 g/dL (6.4-8.2)
== END 2024-03-02 07:03 | disposition home or self-care (01) ==
LOC: CHSLAB 07:03
PROVIDERS: PCP Internal Medicine; Visit Provider Internal Medicine
DX: E11.21 Type 2 diabetes mellitus with diabetic nephropathy (principal); N18.4 Chronic kidney disease, stage 4 (severe)
CPT/HCPCS: 36415; 80053; 81001; 82043; 83036; 85025

== ENCOUNTER 2024-03-10 08:29 | Outpatient (CLI) | payer MEDICARE, SELFPAY ==
[2024-03-10 08:52] LABS: Basophils Absolute Auto 0.04 K/mm3 (0.00-0.10); Basophils Percent Auto 0.6 % (0.0-1.0); Eosinophils Absolute Auto 0.17 K/mm3 (0.02-0.50); Eosinophils Percent Auto 2.6 % (1.0-6.0); Hematocrit 45.7 % (37.0-46.0); Hemoglobin 14.5 g/dL (12.4-15.3); Immature Granulocyte Absolute 0.02 K/mm3 (0.00-0.00); Immature Granulocyte Percent A 0.3 % (0.0-0.0); Lymphocytes Absolute Auto 1.64 K/mm3 (1.10-4.50); Lymphocytes Percent Auto 25.5 % (18.0-42.0); Mean Corpuscular HGB Conc 31.7 g/dL (32-36); Mean Corpuscular Hemoglobin 30.7 pg (27.0-31.0); Mean Corpuscular Volume 96.6 fL (78.0-102.0); Mean Platelet Volume 10.6 fl (8.7-11.0); Monocytes Absolute Auto 0.74 K/mm3 (0.10-0.90); Monocytes Percent Auto 11.5 % (2.0-11.0); Neutrophils Absolute Auto 3.82 K/mm3 (1.70-7.20); Neutrophils Percent Auto 59.5 % (50.0-70.0); Platelet Count Result 160 K/mm3 (150-420); Red Blood Count 4.73 M/mm3 (4.70-6.10); Red Cell Distribution Width 15.2 % (11.6-14.4); White Blood Count 6.4 K/mm3 (4.8-10.8)
[2024-03-10 08:54] LABS: Appearance Urine Clear (Clear); Bilirubin Urine Negative (Negative); Blood Urine 1+ (Negative); Color Urine Light Yellow (Yellow); Glucose Urine UA 3+ (Negative); Ketones Urine Negative (Negative); Leukocyte Esterase Ur Negative LEU/UL (Negative); Nitrate Urine Negative (Negative); Protein Urine 2+ (Negative); Specific Grav Ur 1.015 (1.010-1.020); Urobilinogen Urine 0.2 mg/dL (0.2-1.0)
[2024-03-10 08:57] LABS: Creatinine Urine 41.84 mg/dL (40-278); Total Protein Urine Random 132.2 mg/dL (0.0-11.9); Ur Ttl Prot Creatinine Ratio 3.16 mg/mg (0-0.20)
[2024-03-10 09:10] LABS: Add Urine Microscopic? YES; Bacteria Urine None seen /hpf; RBC Urine 0-2 /hpf (0-2); Squamous Epithelial Cell Urine Rare /hpf (Few); WBC Urine None seen /hpf (0-3)
[2024-03-10 10:23] LABS: Albumin Level 3.8 g/dL (3.4-5.0); Anion Gap 9 mmol/L (4-12); Blood Urea Nitrogen 75 mg/dL (7-18); Calcium 9.2 mg/dL (8.5-10.1); Carbon Dioxide 32 mmol/L (21-32); Chloride 100 mmol/L (98-108); Estimated Glomerular Filt Rate 26; Glucose 163 mg/dL (70-99); Magnesium 2.5 mg/dL (1.8-2.4); Osmolality Calculated 318 mOsm/kg (285-295); Phosphorus 6.4 mg/dL (2.6-4.7); Potassium 4.3 mmol/L (3.5-5.1); Sodium 141 mmol/L (136-145)
== END 2024-03-10 08:30 | disposition home or self-care (01) ==
LOC: CHSLAB 08:31
PROVIDERS: PCP Internal Medicine; Visit Provider Internal Medicine Nephrology
DX: I50.9 Heart failure, unspecified (principal); N18.30 Chronic kidney disease, stage 3 unspecified
CPT/HCPCS: 36415; 80069; 81001; 82570; 83735; 84156; 85025

== ENCOUNTER 2024-04-01 12:27 | Outpatient (RCR) | payer MEDICARE, OTHER, SELFPAY | END 2024-04-03 07:48 | disposition home or self-care (01) | PROVIDERS: PCP Internal Medicine; Visit Provider Internal Medicine | DX: Z95.2 Presence of prosthetic heart valve (principal) | CPT/HCPCS: 93798 ==

== ENCOUNTER 2024-06-08 07:30 | Outpatient (CLI) | payer MEDICARE, SELFPAY ==
[2024-06-08 07:43] LABS: Add Urine Microscopic? YES; Appearance Urine Clear (Clear); Bilirubin Urine Negative (Negative); Blood Urine 1+ (Negative); Color Urine Light Yellow (Yellow); Glucose Urine UA 2+ (Negative); Ketones Urine Negative (Negative); Leukocyte Esterase Ur Negative (Negative); Nitrate Urine Negative (Negative); Protein Urine 2+ (Negative); Specific Grav Ur 1.015 (1.010-1.020); Urobilinogen Urine 0.2 mg/dL (0.2-1.0)
[2024-06-08 07:51] LABS: Bacteria Urine Trace /hpf; Squamous Epithelial Cell Urine Rare /hpf (Few); WBC Urine None seen /hpf (0-3)
[2024-06-08 07:54] LABS: Hemoglobin A1C 6.2 % (<5.7)
[2024-06-08 08:58] LABS: Anion Gap 6 mmol/L (4-12); Blood Urea Nitrogen 81 mg/dL (7-18); Calcium 9.5 mg/dL (8.5-10.1); Carbon Dioxide 34 mmol/L (21-32); Chloride 100 mmol/L (98-108); Estimated Glomerular Filt Rate 22; Glucose 136 mg/dL (70-99); Osmolality Calculated 316 mOsm/kg (285-295); Potassium 4.3 mmol/L (3.5-5.1); Sodium 140 mmol/L (136-145)
== END 2024-06-08 07:31 | disposition home or self-care (01) ==
LOC: CHSLAB 07:31
PROVIDERS: PCP Internal Medicine; Visit Provider Internal Medicine
DX: E11.65 Type 2 diabetes mellitus with hyperglycemia (principal)
CPT/HCPCS: 36415; 80048; 81001; 83036

== ENCOUNTER 2024-06-29 07:59 | Outpatient (CLI) | payer MEDICARE, SELFPAY ==
[2024-06-29 08:18] LABS: Add Urine Microscopic? YES; Appearance Urine Clear (Clear); Bilirubin Urine Negative (Negative); Blood Urine Trace-intact (Negative); Color Urine Light Yellow (Yellow); Glucose Urine UA 3+ (Negative); Ketones Urine Negative (Negative); Leukocyte Esterase Ur Negative LEU/UL (Negative); Nitrate Urine Negative (Negative); Protein Urine 2+ (Negative); Urobilinogen Urine 0.2 mg/dL (0.2-1.0)
[2024-06-29 08:18] LABS: Basophils Absolute Auto 0.04 K/mm3 (0.00-0.10); Basophils Percent Auto 0.6 % (0.0-1.0); Eosinophils Absolute Auto 0.19 K/mm3 (0.02-0.50); Eosinophils Percent Auto 2.7 % (1.0-6.0); Hematocrit 47.5 % (37.0-46.0); Hemoglobin 15.8 g/dL (12.4-15.3); Immature Granulocyte Absolute 0.03 K/mm3 (0.00-0.00); Immature Granulocyte Percent A 0.4 % (0.0-0.0); Lymphocytes Absolute Auto 1.47 K/mm3 (1.10-4.50); Lymphocytes Percent Auto 21.2 % (18.0-42.0); Mean Corpuscular HGB Conc 33.3 g/dL (32-36); Mean Corpuscular Hemoglobin 32.2 pg (27.0-31.0); Mean Corpuscular Volume 96.9 fL (78.0-102.0); Mean Platelet Volume 10.6 fl (8.7-11.0); Monocytes Percent Auto 11.5 % (2.0-11.0); Neutrophils Percent Auto 63.6 % (50.0-70.0); Platelet Count Result 145 K/mm3 (150-420); Red Cell Distribution Width 13.9 % (11.6-14.4); White Blood Count 6.9 K/mm3 (4.8-10.8)
[2024-06-29 08:20] LABS: Creatinine Urine 34.41 mg/dL (40-278); Total Protein Urine Random 113.7 mg/dL (0.0-11.9)
[2024-06-29 08:28] LABS: Bacteria Urine Trace /hpf; Mucus Urine Few /lpf; RBC Urine 0-2 /hpf (0-2); Squamous Epithelial Cell Urine Rare /hpf (Few); WBC Urine None seen /hpf (0-3)
[2024-06-29 09:27] LABS: Albumin Level 3.9 g/dL (3.4-5.0); Anion Gap 6 mmol/L (4-12); Blood Urea Nitrogen 72 mg/dL (7-18); Calcium 9.3 mg/dL (8.5-10.1); Carbon Dioxide 34 mmol/L (21-32); Chloride 101 mmol/L (98-108); Estimated Glomerular Filt Rate 20; Glucose 146 mg/dL (70-99); Osmolality Calculated 316 mOsm/kg (285-295); Phosphorus 4.9 mg/dL (2.6-4.7); Sodium 141 mmol/L (136-145); Uric Acid 5.7 mg/dL (3.5-7.2)
[2024-06-30 11:55] LABS: Vitamin D 25 Hydroxy 67 ng/mL (30-100)
[2024-06-30 21:38] LABS: Parathyroid Intact 56 pg/mL (16-77)
== END 2024-06-29 08:00 | disposition home or self-care (01) ==
PROVIDERS: PCP Internal Medicine Nephrology; Visit Provider Internal Medicine Nephrology
DX: I50.9 Heart failure, unspecified (principal); N25.81 Secondary hyperparathyroidism of renal origin; E87.5 Hyperkalemia; R80.9 Proteinuria, unspecified
CPT/HCPCS: 36415; 80069; 81001; 82306; 82570; 83970; 84156; 84550; 85025

== ENCOUNTER 2024-09-08 07:01 | Outpatient (CLI) | payer MEDICARE, SELFPAY ==
[2024-09-08 07:16] LABS: Hematocrit 49.9 % (37.0-46.0); Hemoglobin 16.8 g/dL (12.4-15.3); Immature Platelet Fraction Pct 2.6 % (1.0-7.0); Mean Corpuscular HGB Conc 33.7 g/dL (32-36); Mean Corpuscular Hemoglobin 32.6 pg (27.0-31.0); Mean Corpuscular Volume 96.9 fL (78.0-102.0); Mean Platelet Volume 10.5 fl (8.7-11.0); Platelet Count Result 133 K/mm3 (150-420); Red Blood Count 5.15 M/mm3 (4.70-6.10); Red Cell Distribution Width 13.6 % (11.6-14.4); White Blood Count 6.4 K/mm3 (4.8-10.8)
[2024-09-08 07:25] LABS: Add Urine Microscopic? YES; Appearance Urine Clear (Clear); Bilirubin Urine Negative (Negative); Blood Urine 1+ (Negative); Color Urine Light Yellow (Yellow); Glucose Urine UA 2+ (Negative); Ketones Urine Negative (Negative); Leukocyte Esterase Ur Negative (Negative); Nitrate Urine Negative (Negative); Protein Urine 2+ (Negative); Specific Grav Ur 1.015 (1.010-1.020); Urobilinogen Urine 0.2 mg/dL (0.2-1.0)
[2024-09-08 07:37] LABS: Hemoglobin A1C 7.1 % (<5.7)
[2024-09-08 08:19] LABS: WBC Urine None seen /hpf (0-3)
[2024-09-08 08:20] LABS: Mucus Urine Rare /lpf
[2024-09-08 09:07] LABS: Alanine Aminotransferase 49 U/L (16-63); Albumin Level 4.1 g/dL (3.4-5.0); Alkaline Phosphatase 84 U/L (46-116); Anion Gap 10 mmol/L (4-12); Bilirubin,Total 0.8 mg/dL (0.00-1.00); Blood Urea Nitrogen 68 mg/dL (7-18); Calcium 10.2 mg/dL (8.5-10.1); Carbon Dioxide 33 mmol/L (21-32); Chloride 101 mmol/L (98-108); Estimated Glomerular Filt Rate 21; Glucose 120 mg/dL (70-99); NT Pro B Type Natriuretic Pept 2425 pg/mL (0-450); Osmolality Calculated 318 mOsm/kg (285-295); Potassium 3.7 mmol/L (3.5-5.1); Sodium 144 mmol/L (136-145); Total Protein 8.1 g/dL (6.4-8.2)
[2024-09-08 09:35] LABS: Aspartate Amino Transferase 27 U/L (15-37)
== END 2024-09-08 07:02 | disposition home or self-care (01) ==
LOC: CHSLAB 07:03
PROVIDERS: PCP Internal Medicine; Visit Provider Internal Medicine
DX: I50.9 Heart failure, unspecified (principal); E11.65 Type 2 diabetes mellitus with hyperglycemia; N18.6 End stage renal disease
CPT/HCPCS: 36415; 80053; 81001; 83036; 83880; 85027; 85055

== ENCOUNTER 2024-10-19 14:27 | Outpatient (CLI) | payer MEDICARE, OTHER, SELFPAY ==
--- NOTE | ~2024-10-19 | XR_ITS ---
EXAMINATION: XR shoulder RT min 2V DATE: 10/19/2024 14:45 INDICATION: Right shoulder pain. TECHNIQUE: 4 views of right shoulder were obtained. COMPARISON: Right shoulder radiographs 06/26/2017 FINDINGS: Alignment is normal. No fracture. There is mild osteoarthritis of glenohumeral joint and ac romioclavicular joint. There is soft tissue swelling lateral to the shoulder. There are surgical clip s anterior to the shoulder. IMPRESSION: 1. Mild polyarticular osteoarthritis. 2. Soft tissue swelling lateral to the shoulder. Reviewed, dictated and finalized at location A. STANT PROFESSOR OF PHYSICS
--- OUTSIDE RECORDS SUMMARY | 2024-10-19 15:25 | XMS_ITS | Referral Summary ---
Author Organization [facility] Address [address] [place] [address] Care Team Providers Care Civil Engineering Draftsperson Name Role Phone Kit Flores MD Unavailable Ainsley Huntley MD Unavailable [phone] Malcolm Pierce MD Unavailable Aimee Devine MD Primary Care Provider [phone] Giacomo Garcia MD Unavailable Eliza Wei MD Unavailable Dimitri Velasquez MD Unavailable Encounters Date Type Department Care Team Description 10/08/2024 Telephone [facility] Cardiology [address] [place] [address] Kit Flores MD Med Management from Last 3 Months Allergies No known active allergies Medications allopurinoL (ZYLOPRIM) 300 mg tablet Take 1 tablet (300 mg total) by mouth daily Active atorvastatin (LIPITOR) 80 mg tablet Take 1 tablet (80 mg total) by mouth daily Active dapagliflozin propanediol (FARXIGA) 10 mg tablet Take 1 tablet (10 mg total) by mouth daily Active gabapentin (NEURONTIN) 300 mg capsule Take 1 capsule (300 mg total) by mouth 2 (two) times a day with breakfast and lunch Active nitroglycerin (NITROSTAT) 0.[address] 1 tablet (0.4 mg total) under the tongue every 5 (five) minutes as needed for chest pain Up to 3 doses total Active polyethylene glycol (MIRALAX) 17 gram packet Take 1 packet (17 g total) by mouth daily Active tamsulosin (FLOMAX) 0.4 mg extended release capsule Take 1 capsule (0.4 mg total) by mouth nightly Active dulaglutide (TRULICITY) 4.5 mg/0.5 mL pen injector Inject 0.5 mL (4.5 mg total) under the skin once a week Saturday Active carvediloL (COREG) 3.125 mg tablet Take 1 tablet (3.125 mg total) by mouth 2 (two) times a day with meals Active glipiZIDE (GLUCOTROL) 5 mg tablet Take 1 tablet (5 mg total) by mouth 3 (three) times a day 2 Morning, 1Lunch and 1Bedtime Active apixaban (Eliquis) 5 mg tablet Take 1 tablet (5 mg total) by mouth 2 (two) times a day 60 tablet 1 4 Active calcitRIOL (ROCALTROL) 0.25 mcg capsule Take 1 capsule (0.25 mcg total) by mouth 3 (three) times a week 12 capsule 1 4 01/08/20 25 Active furosemide (LASIX) 40 mg tablet Take 1 tablet (40 mg total) by mouth daily 30 tablet 1 4 01/07/20 25 Active peg 400-propylene glycol (SYSTANE) 0.4-0.3 % ophthalmic solution Administer 1 drop into both eyes nightly 4 Active CALCIUM ORAL Take 600 mg by mouth daily Active aspirin 81 mg enteric coated tablet Take 1 tablet (81 mg total) by mouth daily 30 tablet 10 4 12/10/19 25 Active vericiguat (VERQUVO) 5 mg tablet Take 1 tablet (5 mg total) by mouth daily 90 tablet 3 5 Active Active Problems Problem Noted Date Diagnosed Date S/P TAVR (transcatheter aortic valve replacement ) 02/25/2024 Encounter for examination fo r normal comparison and control in clinical research program 02/20/2024 Aortic stenosis, severe 01/30/2024 Assessment & Plan (04/02/2024 3:22 PM CDT): Status post successful TAVR. Will await echocardiogram results from today but is feeling well overall. Will continue his aspirin, Eliquis, and beta-temitope therapy. Debility 12/26/2023 Benign essential HTN 12/18/2023 Assessment & Plan (04/02/2024 3:22 PM CDT): Blood pressure normotensive. Continue current medical therapy. Assessment & Plan (01/15/2024 10:46 AM CDT): Blood pressure normotensive on carvedilol Nonrheumatic aortic valve stenosis 08/05/2023 Assessment & Plan (01/15/2024 10:47 AM CDT): Planning to meet with CTS next Saturday with TAVR CT. Planning for upcoming TAVR. Denying any lightheadedness, dizziness, syncope. Benign paroxysmal positional vertigo 11/30/2021 Dermatophytosis, nail 11/30/2021 Diabetes mellitus with peripheral circulatory di sorder 11/30/2021 Lumbar radiculopathy 11/30/2021 Polyneuropathy associated with underlying diseas e 08/25/2021 Diabetic polyneuropathy asso ciated with type 2 diabetes mellitus ([facility]) 08/25/2021 Achalasia 06/10/2020 Secondary polycythemia 05/13/2020 Atrial fibrillation ([facility]) 12/29/2018 Overview (12/29/2018): Added automatically from request for surgery [id number] Assessment & Plan (04/02/2024 3:22 PM CDT): Continue carvedilol and Eliquis. Assessment & Plan (01/15/2024 10:46 AM CDT): Maintain normal sinus rhythm on physical exam, continue carvedilol and Eliquis. Anticoagulation management encounter 04/13/2018 Assessment & Plan (04/13/2018 11:15 AM CDT): The patient has a [id number] score of 4 (annualized risk of stroke 4%). I have therefore recommended that he remain anticoagulated for thromboprophylaxis. Chronic systolic heart failure (CMS/HCC) 017 Assessment & Plan (04/02/2024 3:23 PM CDT): Last EF 25-30%. Awaiting updated echo. Appears well compensated on physical exam. Continue carvedilol, Farxiga, Verquvo. Cardiomyopathy, ischemic 04/17/2017 Assessment & Plan (01/15/2024 10:46 AM CDT): Continue current guideline directed medical therapy. LBBB (left bundle branch block) 04/17/2017 ICD (implantable cardioverter-defibrillator) in place 04/10/2017 Overview (04/10/2017): Medtronic DDD Viva Quad XT ASSISTANT PROFESSOR OF BIOCHEMISTRY-D implanted on 06/05/16 for ICM/CHF/Afib-flutter. Chronic RA and RV leads are from 07-11-15. New LV lead placed 06/05/16. Day [employer] Card Assessment & Plan (01/13/2024 2:53 PM CDT): Severe ischemic cardiomyopathy, status post ASSISTANT PROFESSOR OF BIOCHEMISTRY-D. The patient's device was interrogated and found to be functioning appropriately. No substantial changes to programming were made. The patient is enrolled in the [facility], and we will continue to follow with remote monitoring when possible, and in-office device checks when necessary. No changes to management today. The patient will follow-up with me in 12 months for an office visit and twelve- lead ECG. Assessment & Plan (04/13/2018 11:14 AM CDT): The patient is status post placement of a biventricular pacemaker for ischemic cardiomyopathy and left bundle branch block. He is doing well. The patient's device was interrogated and found to be functioning appropriately. No substantial changes to programming were made. The patient is enrolled in the [facility], and we will continue to follow with remote monitoring when possible, and in-office device checks when necessary. I have not changed any of his medications. Assessment & Plan (04/17/2017 6:02 PM CDT): The patient is status post placement of a biventricular pacing ICD. It is functioning appropriately. The patient is enrolled in the [facility], and we will continue to follow with remote monitoring when possible, and in-office device checks when necessary. The patient will continue to follow with his bankruptcy law specialist regarding ongoing management of his heart failure. Type 2 diabetes mellitus 12/31/2016 Overview (02/15/2017): Type 2 diabetes mellitus with other circulatory complication, with long-term current use of insulin Ataxia 05/23/2016 Embolic stroke 09/09/2015 Atrial flutter (CMS/HCC) 05/26/2015 Overview (12/27/2016): AFlutter Assessment & Plan (04/13/2018 11:14 AM CDT): This has not recurred since ablation. Assessment & Plan (04/17/2017 6:02 PM CDT): He has not experienced recurrent atrial flutter. We will continue to follow his atrial arrhythmia burden (which at present is 0) via his device. The patient will follow-up with me in 12 months for an office visit and twelve- lead ECG. Coronary artery disease of n ative artery of [place] heart with stable angina pectoris 05/16/2015 Overview (12/27/2016): Coronary artery disease Assessment & Plan (01/15/2024 10:46 AM CDT): Recent right and left heart catheterization, continue medical management. Denies any complaints of angina. Continue aspirin, statin, beta-temitope, and Eliquis. History of mitral valve repair 05/16/2015 Overview (12/27/2016): H/O mitral valve repair Hyperlipidemia associated with type 2 diabetes vicki christianson 05/16/2015 Overview (12/27/2016): Hyperlipidemia LDL goal <70 Assessment & Plan (04/02/2024 3:23 PM CDT): Continue high-intensity statin. Assessment & Plan (01/15/2024 10:47 AM CDT): Continue high-intensity statin Hypertension associated with diabetes 05/16/2015 Overview (12/27/2016): Hypertension Cardiomyopathy 05/16/2015 Overview (12/27/2016): Cardiomyopathy Resolved Problems Problem Noted Date Diagnosed Date Resolved Date Acute on chronic HFrEF (hear t failure with reduced ejection fraction) 12/18/2023 02/11/2024 Assessment & Plan (01/15/2024 10:45 AM CDT): Appears compensated on physical exam today. Continue carvedilol, Farxiga, Verquvo. Paroxysmal atrial fibrillation (CMS/HCC) 04/13/2018 05/27/2019 Assessment & Plan (04/13/2018 11:15 AM CDT): The patient has minimal atrial arrhythmia as detected by his device. We will continue to follow his atrial fibrillation burden. Immunizations Name Administration Dates Next Due Influenza, Trivalent, IM (MDV) 07/29/2015 Influenza, Unspecified 09/22/2023 Pneumococcal Conjugate PCV 13 07/29/2015 ZOSTER Recombinant 01/03/2019 Social History Tobacco Use Types Packs/Day Years Used Date Smoking Tobacco: Former Cigarettes 0.5 30 S tarted: 1984 Smokeless Tobacco: Never Tobacco Cessation:Counseling Given: Not Answered Comments:Smoking History Packs/day: 10 Cigarettes Alcohol Use Standard Drinks/Week Comments No 0 (1 standard drink = 0.6 oz pur e alcohol) [facility] Utilities Answer Date Recorded In the past 12 months has e [employer], gas, oil, or water [employer] threatened to shut off services in your home? No 02/26/2024 Social Connection and Isolat ion Panel [NHANES] Answer Date Recorded In a typical week, how many times do you talk on the phone with family, friends, or neighbors? More than three times a week 02/26/2024 How often do you get togethe r with friends or relatives? Once a week 02/26/2024 How often do you attend chur ch or bahai services? Never 02/26/2024 Do you belong to any clubs o r organizations such as latter-day groups, unions, fraternal or athletic groups, or school groups? Yes 02/26/2024 How often do you attend meet ings of the clubs or organizations you belong to? More than 4 times per year 02/26/2024 Are you , , di vorced, , never , or living with a partner? 02/26/2024 AUDIT-C Answer Date Recorded Q1: How often do you have a drink containing alc ohol? Never 11/26/2022 Average Number of Drinks Not on file 023 Frequency of Binge Drinking Not on file 02/2023 Overall Financial Resource Strain (CARDIA) Answe r Date Recorded How hard is it for you to pa y for the very basics like food, housing, medical care, and heating? Not very hard 02/26/2024 PHQ-2 Answer Date Recorded Patient Health Questionnaire-2 Score 0 01/06/2024 Hunger Vital Sign Answer Date Recorded Within the past 12 months, y ou worried that your food would run out before you got the money to buy more. Never true 02/26/20 24 Within the past 12 months, t he food you bought just didn't last and you didn't have money to get more. Never true 02/26/2024 PRAPARE - Transportation Answer Date Re corded In the past 12 months, has l ack of transportation kept you from medical appointments or from getting medications? No 01/2024 In the past 12 months, has l ack of transportation kept you from meetings, work, or from getting things needed for daily living? No 02/26/2024 Housing Stability Vital Sign Answer Enrique e Recorded In the last 12 months, was t here a time when you were not able to pay the mortgage or rent on time? No 01/31/2024 In the last 12 months, how many places have you lived? 1 01/31/2024 In the last 12 months, was t here a time when you did not have a steady place to sleep or slept in a correction (including now)? No 01/31/2024 Housing Stability Vital Sign Answer Enrique e Recorded In the last 12 months, was t here a time when you were not able to pay the mortgage or rent on time? No 02/26/2024 In the past 12 months, how m any times have you moved where you were living? 1 02/26/2024 At any time in the past 12 m [facility], were you homeless or living in a correction (including now)? No 02/26/2024 Personal Safety Answer Date Recorded Have you ever been in or are you currently in a harmful physical or emotional relationship or is someone making you feel afraid or unsafe? Denies 02/25/2024 Sex and Gender Information Value Date Recorded Sex Assigned at Not on file Legal Sex Male 11:02 AM [employer]ICK[employer] Gender Identity Not on file Sexual Orientation Not on file Last Filed Vital Signs Vital Sign Reading Time Taken Comments Blood Pressure 116/70 04/02/2024 2:53 PM CDT Pulse 100 04/02/2024 2:53 PM CDT Temperature 36.6 ??C (97.9 ??F) 02/26/2024 12:04 PM C DT Respiratory Rate 18 02/26/2024 12:04 PM CDT Oxygen Saturation 99% 04/02/2024 2:53 PM CDT Inhaled Oxygen Concentration - - Weight 98.2 kg (216 lb 9.6 oz) 04/02/2024 2:53 P M CDT Height 177.8 cm (5' 10 ) 04/02/2024 2:53 PM CDT Body Mass Index 31.08 04/02/2024 2:53 PM CDT Plan of Treatment Not on file Medical Devices Implanted Type Area Asbestos Siding Installer Device Identifier Shelf Expiration Date Model / Serial / Lot Medtronic Inc Cardiac Preston Hf 2 Chamber Df4 Inline Cnctr Is4 [id number] - [id number] - [id number] Implanted:Qty: 1 on 11/26/2022 by Hong Bernstein MD at [facility] ICD Medtronic Inc [id number] 03/20/2024 [id number] / [id number] / [employer] Valve Heart 26mm Horacio 3 Transcatheter [id number] - [id number] - [id number] Implanted:Qty: 1 on 02/25/2024 by Dimitri Velasquez MD at [facility] Prosthetic Valve N/A: Aortic Valve [employer] 08/25/2026 [id number] / [id number] / [employer] 18f Manta Vascular Closure Device 2115 - S0 - [id number] Implanted:Qty: 1 on 02/25/2024 by Dimitri Velasquez MD at [facility] Vascular Closure Device N/A: Femoral [employer] Inc 05/11/20255 / 0 / [id number] Explanted Type Area Asbestos Siding Installer Device Identifier Shelf Expiration Date Model / Serial / Lot Icd-06/05/2016 Implanted:2015 by Hong Bernstein MD (Quantity not on file) Explanted:Qty: 1 on 11/26/2022 by Hong Bernstein MD at [facility] ICD Chest Medtronic VIVA QUAD / / Description:Medtronic DDD Vi va Quad XT ASSISTANT PROFESSOR OF BIOCHEMISTRY-D implanted on 06/05/16 for ICM/CHF/Afib-flutter. Chronic RA and RV leads are from 07-11-15. New LV lead placed 06/05/16. Day [employer] Card Procedures Procedure Name Priority Date/Time Associated Diagnosis Comments EGFR Routine 02/26/2024 6:[address] CHEST ABDOMEN PELVIS WO CONTRAST Schedule Routine, Read Routine (OP Routine) 01/22/2024 9:45 AM CDT Nonrheumatic aortic valve stenosis HEPATITIS PANEL, ACUTE Routine 12/19/2023 4:23 AM CDT HEMOGLOBIN A1C Routine 12/19/2023 3:00 AM CDT LIPID PANEL Routine 12/19/2023 3:00 AM CDT from Last 3 Months or Most Recently Relevant to Health Maintenance Results * (ABNORMAL) eGFR (02/26/2024 6:43 AM CDT) eGFR 29(L) >=60 mL/min/1. 73 m2 Comment: Interpretive Data Reference Interval Normal ?>/= 90 mL/min/1.73m2 Mildly decreased* ? 60 - 89 mL/min/1.73m2 Mildly to moderately decreased ?45 - 59 mL/min/1.73m2 Moderately to severely decreased ??30 - 44 mL/min/1.73m2 Severely decreased ?15 - 29 mL/min/1.73m2 Kidney Failure ?< 15 ??mL/min/1.73m2 *Relative to young adult level Estimated glomerular filtration rate is determined by the 2020 CKD-EPI equation recommended by the National Kidney Foundation (A Unifying Approach to GFR Estimation: Recommendations of the NKF-ASK Task Force on Reassessing the Inclusion of Race in Diagnosing Kidney Disease, JASN 2020). The CKD-EPI equation should not be used for patients with unstable renal function and has not been validated in children and those over 70. Current interpretive data was last reviewed 2021. Blood 02/26/2024 6:43 AM CDT 02/26/2024 7:00 AM CDT us Dimitri Velasquez MD LAB BLOOD ORDERABLES Final Resul t [facility] [address] [place] [address] * CT Chest Abdomen Pelvis WO Contrast (01/22/2024 9:45 AM CDT) Anatomical Region Laterality Modality Body N/A Computed Tomogra phy 01/23/2024 8:36 AM CDT Impressions 01/23/2024 10:00 AM CDT 1. ??Aortic annulus, and abdominal aortic, common iliac, external iliac, and femoral artery measurements in preparation for TAVR procedure as described above. 2. ??Aortic valve calcium score: Agatston 1430, volume 1216 mm3 3. ??Ascending aortic dilation measuring up to 41 mm at the level of the main pulmonary artery. Dictated by: Lei Jo MD The radiology attending physician has personally reviewed this study, and had reviewed and/or edited this written report and agrees with it. Electronically signed by: Brittany Lawson M.D. Narrative 01/23/2024 10:00 AM CDT EXAMINATION: CT CHEST ABDOMEN PELVIS WO CONTRAST ?? HISTORY: Severe aortic stenosis, pre-TAVR procedure. ?? TECHNIQUE: Heart CT and CT angiogram of the abdomen and pelvis without intravenous contrast per TAVR Protocol. Images were transferred to an independent workstation for additional 3D post-processing. COMPARISON: CT abdomen pelvis 12/19/2023. ?? FINDINGS: Annulus and thoracic aortic measurements (in systole): Aortic valve annulus: Area 647 mm2; circumference 99 mm; 32 mm maximum diameter x 28 mm minimum diameter Sinuses of Valsalva: 33 mm x 36 mm x 35 mm [id number] Sinotubular junction: 29 mm x 34 mm Distance to RCA ostium from aortic valve annulus: 15 mm Distance to left main ostium from annulus: 14 mm Deployment angle: 2 GEORGIAN, 9 CAU Right coronary sinus height: 18 mm Left coronary sinus height: 25 mm Non-coronary sinus height: 23 mm Aortic valve calcium score: Agatston 1430, volume 1216 mm3 There is mild to moderate left ventricular outflow tract calcification. There is moderate mitral annular calcification. Of note the maximum ascending aorta measures 41 x 40 mm. Coronary arteries: Anomalous coronary artery course: No Left main atherosclerosis: Severe LAD atherosclerosis: Severe Circumflex atherosclerosis: Severe RCA atherosclerosis: Severe Abdominal aortic and pelvic arterial smallest diameter measurements (made from centerline curved MPRs): ? Infrarenal aorta: 18 mm x 16 mm. There is severe calcification. Right common iliac artery: 9 mm x 9 mm. There is severe calcification. Left common iliac artery: 9 mm x 10 mm. There is moderate calcification. There is mild tortuosity of the bilateral common iliac arteries. This is equal in distribution. Right external iliac artery: 6 mm x 6 mm. There is moderate calcification. ?? Left external iliac artery: 8 mm x 10 mm. There is mild calcification. There is mild tortuosity of the bilateral external iliac arteries. This is equal in distribution. Right common femoral artery: 7 x 8 mm. There is minimal calcification. Left common femoral artery: 9 x 9 mm. There is mild calcification. There is mild tortuosity of the bilateral femoral arteries. This is equal in distribution. Other findings: Left subclavian approach pacer defibrillator leads terminating in the right atrium, right ventricle and coronary vein. ??All cardiac chambers are enlarged. ??No pericardial effusion. ??Aortic calcifications. ??Severe coronary artery atherosclerotic calcifications. ??Unremarkable thyroid. ??Unchanged diffuse esophageal thickening compared to prior CT 2019. ??Small hiatal hernia. ??No pleural effusion. ??No axillary, supraclavicular, mediastinal, or hilar lymphadenopathy. ??Mucus within the trachea. ??Pulmonary nodule along the minor fissure likely represents pulmonary lymph node on table position 111. ??No suspicious pulmonary nodule. ??No consolidation. ??No pneumothorax. ??Calcified pulmonary nodules, likely sequela of old healed granulomatous disease. Normal liver. ??Cholelithiasis. ??No evidence of cholecystitis. ??Normal spleen. ??Normal pancreas. ??Left adrenal nodule is unchanged. ??Right adrenal gland is normal. ??Too small to characterize hypoattenuating lesion in the left kidney. ??Mild thickening of the urinary bladder likely related to chronic outlet obstruction. ??Enlarged prostate. Colonic diverticulosis. ??No evidence of diverticulitis. ??No bowel obstruction. ??Post catheterization changes in the right groin. ??No pelvic or abdominal lymphadenopathy. ??No ascites or pneumoperitoneum. ?? No suspicious osseous lesions. ??Fat-containing bilateral inguinal hernias. ? Procedure Note Brittany Lawson MD - 01/23/2024 EXAMINATION: CT CHEST ABDOMEN PELVIS WO CONTRAST HISTORY: Severe aortic stenosis, pre-TAVR procedure. TECHNIQUE: Heart CT and CT angiogram of the abdomen and pelvis without intravenous contrast per TAVR Protocol. Images were transferred to an independent workstation for additional 3D post-processing. COMPARISON: CT abdomen pelvis 12/19/2023. FINDINGS: Annulus and thoracic aortic measurements (in systole): Aortic valve annulus: Area 647 mm2; circumference 99 mm; 32 mm maximum diameter x 28 mm minimum diameter Sinuses of Valsalva: 33 mm x 36 mm x 35 mm [id number] Sinotubular junction: 29 mm x 34 mm Distance to RCA ostium from aortic valve annulus: 15 mm Distance to left main ostium from annulus: 14 mm Deployment angle: 2 GEORGIAN, 9 CAU Right coronary sinus height: 18 mm Left coronary sinus height: 25 mm Non-coronary sinus height: 23 mm Aortic valve calcium score: Agatston 1430, volume 1216 mm3 There is mild to moderate left ventricular outflow tract calcification. There is moderate mitral annular calcification. Of note the maximum ascending aorta measures 41 x 40 mm. Coronary arteries: Anomalous coronary artery course: No Left main atherosclerosis: Severe LAD atherosclerosis: Severe Circumflex atherosclerosis: Severe RCA atherosclerosis: Severe Abdominal aortic and pelvic arterial smallest diameter measurements (made from centerline curved MPRs): Infrarenal aorta: 18 mm x 16 mm. There is severe calcification. Right common iliac artery: 9 mm x 9 mm. There is severe calcification. Left common iliac artery: 9 mm x 10 mm. There is moderate calcification. There is mild tortuosity of the bilateral common iliac arteries. This is equal in distribution. Right external iliac artery: 6 mm x 6 mm. There is moderate calcification. Left external iliac artery: 8 mm x 10 mm. There is mild calcification. There is mild tortuosity of the bilateral external iliac arteries. This is equal in distribution. Right common femoral artery: 7 x 8 mm. There is minimal calcification. Left common femoral artery: 9 x 9 mm. There is mild calcification. There is mild tortuosity of the bilateral femoral arteries. This is equal in distribution. Other findings: Left subclavian approach pacer defibrillator leads terminating in the right atrium, right ventricle and coronary vein. All cardiac chambers are enlarged. No pericardial effusion. Aortic calcifications. Severe coronary artery atherosclerotic calcifications. Unremarkable thyroid. Unchanged diffuse esophageal thickening compared to prior CT 2019. Small hiatal hernia. No pleural effusion. No axillary, supraclavicular, mediastinal, or hilar lymphadenopathy. Mucus within the trachea. Pulmonary nodule along the minor fissure likely represents pulmonary lymph node on table position 111. No suspicious pulmonary nodule. No consolidation. No pneumothorax. Calcified pulmonary nodules, likely sequela of old healed granulomatous disease. Normal liver. Cholelithiasis. No evidence of cholecystitis. Normal spleen. Normal pancreas. Left adrenal nodule is unchanged. Right adrenal gland is normal. Too small to characterize hypoattenuating lesion in the left kidney. Mild thickening of the urinary bladder likely related to chronic outlet obstruction. Enlarged prostate. Colonic diverticulosis. No evidence of diverticulitis. No bowel obstruction. Post catheterization changes in the right groin. No pelvic or abdominal lymphadenopathy. No ascites or pneumoperitoneum. No suspicious osseous lesions. Fat-containing bilateral inguinal hernias. IMPRESSION: 1. Aortic annulus, and abdominal aortic, common iliac, external iliac, and femoral artery measurements in preparation for TAVR procedure as described above. 2. Aortic valve calcium score: Agatston 1430, volume 1216 mm3 3. Ascending aortic dilation measuring up to 41 mm at the level of the main pulmonary artery. Dictated by: Lei Jo MD The radiology attending physician has personally reviewed this study, and had reviewed and/or edited this written report and agrees with it. Electronically signed by: Brittany Lawson M.D. Karly Castaneda NP IMG CT PROCEDURES Final Re sult * Hepatitis panel, acute Blood (12/19/2023 4:23 AM CDT) Hep A IgM Nonreactive Nonreactive Comment: Interpretive Data: If Hep A IgM Ab is reported as Equivocal, a new sample should be drawn in two weeks for testing. Current interpretive data was last revised on 19. Hep B core IgM Nonreactive Nonreactive [facility] Comment: Interpretive Data If HepB Core IgM Ab is reported as Equivocal, a new sample should be drawn in two weeks for testing. Current interpretive data was last revised on 19. Hep C Ab Nonreactive Nonreactive [facility] Comment: Interpretive Data Nonreactive: Antibodies to HCV not detected. Does NOT exclude the possibility of recent exposure to HCV. Equivocal: Equivocal for HCV antibodies. Supplemental molecular testing will be automatically performed to determine infection status in accordance with current CDC screening recommendations. ?? Reactive: Positive for HCV antibodies. ??This may represent current or past HCV infection. Supplemental molecular testing will be automatically performed to determine ??current infection status in accordance with current CDC screening recommendations. Interpretive data was last revised on 2019. HepBsAg Nonreactive Nonreactive [facility] Blood 12/19/2023 4:23 AM CDT 12/19/2023 4:38 AM CDT Eliza Wei MD LAB MICROBIOLOGY - GENE RAL ORDERABLES Final Result Performing Organization Address [facility] de Phone Number [facility] [address] [place] [address] * (ABNORMAL) Hemoglobin A1c (12/19/2023 3:00 AM CDT) Hgb A1C 7.9(H) 4.0 - 5.6 % Estimated Average Glucose 180 mg/dL [facility] Comment: The ADA recommends reporting an estimated Average Glucose (eAG) with all Hemoglobin A1c results using the equation derived from a study of 507 normal and diabetic adults. ??Minority populations were underrepresented and children were not included. ?? (Diabetes Care 31:4148-3840, 2008). ??The eAG is not equivalent to a fasting glucose. Blood 12/19/2023 3:00 AM CDT 12/19/2023 3:38 AM CDT us Zak Reardon MD LAB BLOOD ORDERABLES Final Res ult Performing Organization Address [facility] de Phone Number [facility] [address] [place] [address] * Lipid panel (12/19/2023 3:00 AM CDT) Cholesterol 115 30 - 199 mg/dL Comment: Interpretive Data Ages < or = 19 years ??Acceptable: ? <170 mg/dL ??Borderline high: ??170-199 mg/dL ??High: ? >or= 200 mg/dL Ages > or = 20 years ??Desirable: ?<200 mg/dL ??Borderline high: ??200-239 mg/dL ??High: ? >or= 240 mg/dL Literature References: 1. Expert Panel on Integrated Guidelines for Cardiovascular Health and Risk Reduction in Children and Adolescents. Pediatrics 2011;128:S213 2. NCEP Expert Panel. Circulation 2004;110:227 Current Interpretive Data was last revised on 2018. Triglycerides 85 <=149 mg/dL [facility] Comment: Interpretive Data Ages < or = 9 years ??Acceptable: ? <75 mg/dL ??Borderline high: ??75-99 mg/dL ??High: ? >or= 100 mg/dL Ages 10 to 20 years ??Acceptable: ? <90 mg/dL ??Borderline high: ??90-129 mg/dL ??High: ? >or= 130 mg/dL Ages > or = 20 years ??Desirable: ?<150 mg/dL ??Borderline high: ??150-199 mg/dL ??High: ? 200-499 mg/dL ?Very high: ?? >or= 499 mg/dL Literature References: 1. Expert Panel on Integrated Guidelines for Cardiovascular Health and Risk Reduction in Children and Adolescents. Pediatrics 2011;128:S213 2. NCEP Expert Panel. Circulation 2004;110:227 Current Interpretive Data was last revised on 2018. HDL 40 >=40 mg/dL [facility] Comment: Interpretive Data Ages < or = 19 years ??Acceptable: ? >45 mg/dL ??Borderline low: ?? 40-45 mg/dL ??Low: ? <40 mg/dL Ages > or = 20 years ??Desirable: ?>or= 60 mg/dL ??Low: ? <40 mg/dL Literature References: 1. Expert Panel on Integrated Guidelines for Cardiovascular Health and Risk Reduction in Children and Adolescents. Pediatrics 2011;128:S213 2. NCEP Expert Panel. Circulation 2004;110:227 Current Interpretive Data was last revised on 2018. LDL, calculated 58 <=129 mg/dL [facility] Comment: Interpretive Data Ages < or = 19 years ??Acceptable: ? <110 mg/dL ??Borderline high: ??110-129 mg/dL ??High: ?>or= 130 mg/dL Ages > or = 20 years ??Optimal: ? <100 mg/dL ??Near optimal: ?100-129 mg/dL ??Borderline high: ?? 130-159 mg/dL ??High: ?>160 mg/dL Literature References: 1. Expert Panel on Integrated Guidelines for Cardiovascular Health and Risk Reduction in Children and Adolescents. Pediatrics 2011;128:S213 2. NCEP Expert Panel. Circulation 2004;110:227 Current Interpretive Data was last revised on 2018. Non-HDL Cholesterol 75 mg/dL [facility] Comment: Interpretive Data Ages < or = 19 years ??Acceptable: ?<120 mg/dL ??Borderline high: ??120-144 mg/dL ??High: ?>145 mg/dL Ages > or = 20 years ??When triglycerides are >200 mg/dL, Non-HDL cholesterol is a secondary target of ? therapy with treatment goals that are 30 mg/dL greater than the LDL cholesterol target. ? Literature References: 1. Expert Panel on Integrated Guidelines for Cardiovascular Health and Risk Reduction in Children and Adolescents. Pediatrics 2011;128:S213 2. NCEP Expert Panel. Circulation 2004;110:227 Current Interpretive Data was last revised on 2018. Chol/HDL ratio 3 [facility] Blood 12/19/2023 3:00 AM CDT 12/19/2023 3:37 AM CDT us Zak Reardon MD LAB BLOOD ORDERABLES Final Res ult [facility] [address] [place] [address] from Last 3 Months or Most Recently Relevant to Health Maintenance Insurance MEDICARE [facility] MEDICARE [facility] MEDICARE [facility] Advance Directives For more information, please contact: [phone] * Full Code (Latest Code Status on File) Date Activated Date Inactivated Comments 02/25/2024 6:31 AM 02/26/2024 8:10 PM * Full Code Date Activated Date Inactivated Comments 01/30/2024 12:51 PM 01/31/2024 10:18 PM * Full Code Date Activated Date Inactivated Comments 12/26/2023 5:30 PM 01/06/2024 4:51 PM * Full Code Date Activated Date Inactivated Comments 12/18/2023 2:11 PM 12/26/2023 5:29 PM * Full Code Date Activated Date Inactivated Comments 12/18/2023 2:11 PM 12/18/2023 2:11 PM Care Teams Civil Engineering Draftsperson Relationship Specialty Start Date End Date Aimee Devine MD [address] [place] [address] PCP - General 05/21/20 Kit Flores MD Consulting Physician Cardiology 07/23/18 Ainsley Huntley MD [address] [place] [address] Radiation Oncologist Radiation Oncology 04/14/19 Malcolm Pierce MD [address] [place], [place] [id number] Consulting Physician Hematology and Oncology 05/16/20 Giacomo Garcia MD [address] [place] [address] Consulting Physician Cardiothoracic Surgery 01/09/24 Eliza Wei MD [address] [place], [place] [id number] B And B Gang Worker Nephrology 01/22/24 Dimitri Velasquez MD [address] [place], [place] [id number] Consulting Physician Interventional Cardiology 02/26/24
--- OUTSIDE RECORDS SUMMARY | 2024-10-19 15:25 | XMS_ITS | Encounter Summary ---
Author Organization [facility] Address [address] [place] [address] Phone Care Team Providers Care Hadoop Infrastructure Architect Name Role Phone Chaparro Mathias DPM Unavailable [phone] Aimee Devine MD Primary Care Provider [phone] Reason for Visit * Reason Comments Medication Refill Encounter Details Date Type Department Care Team (Late st Contact Info) Description 08/06/2021 Refill [facility] - Neurology [facility] [address] [place] [id number] Ebenezer Gutierrez MD [address] [place] [address] Medication Refill Social History Tobacco Use Types Packs/Day Years Used Date Smoking Tobacco: Former Cigarettes 1 30 Smokeless Tobacco: Never Alcohol Use Standard Drinks/Week Comments No 0 (1 standard drink = 0.6 oz pur e alcohol) Sex and Gender Information Value Date Recorded Sex Assigned at Not on file Legal Sex Male 9:23 PM CDT Gender Identity Not on file Sexual Orientation Not on file documented as of this encounter Miscellaneous Notes * Telephone Encounter - Kasandra Major RN - 08/07/2021 8:23 AM CST Medication failed the protocol, provider to review and approve the medication order if appropriate. Requested Prescriptions Pending Prescriptions Disp Refills gabapentin (NEURONTIN) 300 MG Capsule [Pharmacy Med Name: GABAPENTIN 300 MG CAPSULE] 360 Capsule 3 Sig: TAKE ONE CAPSULE BY MOUTH FOUR TIMES A DAY Not Delegated - Anticonvulsants Protocol Failed - 08/06/2021 9:33 AM Failed - This refill cannot be delegated Passed - Visit with relevant provider in past 12 months or upcoming 90 days Recent Visits Date Type Provider Dept 01/26/21 Office Visit Ebenezer Gutierrez MD [facility] [place] [address] 10/31/20 Office Visit Ebenezer Gutierrez MD [facility] [place] Showing recent visits within past 365 days and meeting all other requirements Future Appointments No visits were found meeting these conditions. Showing future appointments within next 90 days and meeting all other requirements ONCOLOGY CLINICAL documented in this encounter Plan of Treatment Not on file documented as of this encounter Visit Diagnoses Not on filedocumented in this encounter Care Teams Hadoop Infrastructure Architect Relationship Specialty Start Date End Date Aimee Devine MD [address] [place] [address] PCP - General Internal Medicine 10/30/19 Chaparro Mathias DPM Podiatry 08/15/15 documented as of this encounter
--- OUTSIDE RECORDS SUMMARY | 2024-10-19 15:25 | XMS_ITS | Encounter Summary ---
Author Organization [facility] Address [address] [place] [address] Phone Care Team Providers Care Clinical Researcher Name Role Phone Chaparro Mathias DPM Unavailable [phone] Aimee Devine MD Primary Care Provider [phone] Reason for Visit * Reason Comments Medication Refill Encounter Details Date Type Department Care Team (Late st Contact Info) Description 02/16/2020 Refill [facility] - Neurology [facility] [address] [facility] [place] [phone] Ebenezer Gutierrez MD [address] [place] [address] Medication Refill Social History Tobacco [...] on file documented as of this encounter Plan of Treatment Not on file documented as of this encounter Visit Diagnoses Not on filedocumented in this encounter Care Teams Clinical Researcher Relationship Specialty Start Date End Date Aimee Devine MD [address] [place] [address] PCP - General Internal Medicine 10/30/19 Chaparro Mathias DPM Podiatry 08/15/15 documented as of this encounter
--- OUTSIDE RECORDS SUMMARY | 2024-10-19 15:25 | XMS_ITS | Encounter Summary ---
Author Organization [facility] Address [address] [place] [address] Care Team Providers Care Wildlife Conservation Officer Name Role Phone Damian Adam MD Primary Care Provider [phone] Kit Flores MD Unavailable [phone] Ainsley Huntley MD Unavailable [phone] Malcolm Pierce MD Unavailable Aimee Devine MD Primary Care Provider [phone] Giacomo Garcia MD Unavailable [phone] Eliza Wei MD Unavailable [phone] Dimitri Velasquez MD Unavailable Encounter Details Date Type Department Care Team (Late st Contact Info) Description 05/19/2020 Telephone [facility] - Imaging [address] [place] [address] Transcribed Order, Provider Social History Tobacco Use Types Packs/Day Years Used Date Smoking Tobacco: Former Smokeless Tobacco: Never Comments:Smoking History Pac ks/day: 10 Cigarettes Alcohol Use Standard Drinks/Week Comments No 0 (1 standard drink = 0.6 oz pur e alcohol) Sex and Gender Information Value Date Recorded Sex Assigned at Not on file 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 Gender Identity Not on file Sexual Orientation Not on file documented as of this encounter Plan of Treatment Not on file documented as of this encounter Visit Diagnoses Not on filedocumented in this encounter Care Teams Wildlife Conservation Officer Relationship Specialty Start Date End Date Damian Adam MD [address] [address] PCP - General 12/31/16 05/20/20 Aimee Devine MD [address] [place] [address] PCP - General 05/21/20 Kit Flores MD [address] [address] Consulting Physician Cardiology 07/23/18 Ainsley Huntley MD [address] [place] [address] Radiation Oncologist Radiation Oncology 04/14/19 Malcolm Pierce MD [address] [place], [place] [id number] Consulting Physician Hematology and Oncology 05/16/20 Giacomo Garcia MD [address] [place] [address] Consulting Physician Cardiothoracic Surgery 01/09/24 Eliza Wei MD [address] [place] [address] Positive Printer Operator Nephrology 01/22/24 Dimitri Velasquez MD [address] [place] [address] Consulting Physician Interventional Cardiology 02/26/24 documented as of this encounter
--- OUTSIDE RECORDS SUMMARY | 2024-10-19 15:25 | XMS_ITS | Clinical Summary ---
Author Organization [facility] Building C Address [address] [facility] [address] Care Team Providers Care Card Feeder Name Role Phone Kit Flores MD Unavailable Ainsley Huntley MD Unavailable [phone] Malcolm Pierce MD Unavailable Aimee Devine MD Primary Care Provider [phone] Giacomo Garcia MD Unavailable Eliza Wei MD Unavailable [phone] Dimitri Velasquez MD Unavailable Allergies No known active allergies Medications allopurinoL [...] asso ciated with type 2 diabetes mellitus ([facility]) 08/25/2021 Achalasia 06/10/2020 Secondary polycythemia 05/13/2020 Atrial fibrillation ([facility]) 12/29/2018 Overview (12/29/2018): Added automatically from request for surgery [id number] Assessment & Plan (04/02/2024 3:22 PM CDT): Continue carvedilol and Eliquis. Assessment & Plan (01/15/2024 10:46 AM CDT): Maintain normal sinus rhythm on physical exam, continue carvedilol and Eliquis. Anticoagulation management encounter 04/13/2018 Assessment & Plan (04/13/2018 11:15 AM CDT): The patient has a [id number] score of 4 (annualized risk of stroke [...] Overview (04/10/2017): Medtronic DDD Viva Quad XT ENVIRONMENTAL SYSTEMS COORDINATOR-D implanted on 06/05/16 for ICM/CHF/Afib-flutter. Chronic RA and RV leads are from 07-11-15. New LV lead placed 06/05/16. Day [facility] Card Assessment & Plan (01/13/2024 2:53 PM CDT): Severe ischemic cardiomyopathy, status post ENVIRONMENTAL SYSTEMS COORDINATOR-D. The patient's device was interrogated and found [...] patient will continue to follow with his medical billing and coding specialist regarding ongoing management of his heart [...] artery disease of n ative artery of [place] heart with stable angina pectoris 05/16/2015 Overview [...] continue to follow his atrial fibrillation burden. Encounters Date Type Department Care Team Description 10/08/2024 Telephone [facility] Cardiology [address] [facility] [address] [place] [id number] Kit Flores MD Med Management from Last 3 Months Immunizations Name Administration Dates Next Due Influenza, Trivalent, IM (MDV) 07/29/2015 Influenza, Unspecified 09/22/2023 Pneumococcal Conjugate PCV 13 07/29/2015 ZOSTER Recombinant 01/03/2019 Surgical History Surgery Date Site/Laterality Comments HERNIA REPAIR Hernia repair CARPAL TUNNEL RELEASE Bilateral Carpal tunnel release TONSILLECTOMY Tonsillectomy INSERT / REPLACE / REMOVE PACEMAKER 09/23/2022 - 09/22/2023 AICD revision MITRAL VALVE REPAIR 02/25/2015 mini mitral / annuloplasty 30mm physio II / cardiogenic shock / ECMO THORACOTOMY 09/23/2014 - 09/22/2015 Right evacuation of hematoma CARDIAC STENT PLACEMENT x 2 FEMORAL EXPLORATION 09/23/2014 - 09/22/2015 Right with wound vac placement Medical History Medical History Date Comments Type 2 diabetes mellitus (HCC) D iabetes type 2; Comments: [facility] 05/05/2015 - Hypertension Hypertension Osteoarthritis Osteoarthritis; Comments: [facility] 05/05/2015 - Chronic obstructive pulmonar y disease (HCC) COPD AICD (automatic cardioverter/defibrillator) present 04/10/2017 Medtronic DDD Viva Quad XT ENVIRONMENTAL SYSTEMS COORDINATOR-D implanted on 06/05/16 for ICM/CHF/Afib-flutter. Chronic RA and RV leads are from 07-11-15. New LV lead placed 06/05/16. [place] [facility] Atrial fibrillation (CMS/HCC) (HCC) Hyperlipidemia Coronary artery disease Stroke (HCC) balance is off Kidney stones BPH (benign prostatic hyperplasia) Mitral regurgitation Myocardial infarction (HCC) NSTE MT Cardiogenic shock (HCC) Aortic stenosis Sleep apnea CPAP History of blood transfusion 2014 Family History Medical History Relation Name Comments Heart attack Brother Myocardial infa rction; Other Father Polycythemia ru bra vera; Diabetes type II Mother Diabetes me llitus type 2; Heart failure Mother Congestive hea rt failure; Hypertension Mother Ovarian cancer Sister Cancer, ovari an; Relation Name Status Comments Brother Father Mother Sister Social History Tobacco Use Types Packs/Day Years Used Date Smoking Tobacco: Former Cigarettes 0.5 30 S tarted: 1984 Smokeless Tobacco: Never Tobacco Cessation:Counseling Given: Not Answered Comments:Smoking History Packs/day: 10 Cigarettes Alcohol Use Standard Drinks/Week Comments No 0 (1 standard drink = 0.6 oz pur e alcohol) [facility] Utilities Answer Date Recorded In the past 12 months has Environmental Operations electric, gas, oil, or water House Party threatened to shut off services in your [...] often do you attend chur ch or episcopalian services? Never 02/26/2024 Do you belong to any clubs o r organizations such as yazidi groups, unions, fraternal or athletic groups, or [...] place to sleep or slept in a chcf (including now)? No 01/31/2024 Housing Stability Vital Sign Answer Enrique e Recorded In the last 12 months, was t here a time when you were not able to pay the mortgage or rent on time? No 02/26/2024 In the past 12 months, how m any times have you moved where you were living? 1 02/26/2024 At any time in the past 12 m [facility], were you homeless or living in a chcf (including now)? No 02/26/2024 Personal Safety Answer Date Recorded Have you ever been in or are you currently in a harmful physical or emotional relationship or is someone making you feel afraid or unsafe? 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 Gender Identity Not on file Sexual Orientation Not on file Obstetrics History Last Filed Vital Signs Vital Sign Reading [...] 04/02/2024 2:53 PM CDT Plan of Treatment Health Maintenance Due Date Last Done Comments Albumin Creatinine Ratio, Urine 1945 Depression Screening 1945 Dilated Eye Exam 1945 Foot Exam 1945 DTaP/Tdap/Td Vaccine (1 - Tdap) 1958 Hepatitis B Screening 1965 Well Visit 65+ 2012 Pneumococcal vaccine 65+ (2 of 2 - PPSV23 or PCV20) 09/23/2015 07/29/2015 Zoster Vaccine (2 of 2) 02/28/2019 01/03/2019 Covid-19 Vaccine (3 - 2023-2 5 season) 2024 11/16/2020, 10/26/2020 Influenza Vaccine (#1) 2024 09/22/2023, 2014 Hemoglobin A1C 06/20/2024 12/19/2023 Lipid Panel 12/18/2024 12/19/2023, 07/24, 05/31/2021, Additional history exists Fall Risk Assessment 02/25/2025 02/26/2024 eGFR 02/25/2025 02/26/2024, 06/0 12/2023, 02/11/2024, Additional history exists Hepatitis C Screening Completed 12/19/2023 Abdominal Aortic Aneurysm (A AA) Screen Completed 01/22/2024, 12/19/2023, 05/21/2020 Medical Devices Implanted Type Area Rehabilitation Consultant Device Identifier Shelf Expiration Date Model / Serial / Lot Medtronic Inc Cardiac [place] Hf 2 Chamber Df4 Inline Cnctr Is4 [id number] - [id number] - [id number] Implanted:Qty: 1 on 11/26/2022 by Hong Bernstein MD at [facility] ICD Medtronic Inc [id number] 03/20/2024 [id number] / [id number] / [employer] Valve Heart 26mm Horacio 3 Transcatheter [id number] - [id number] - [id number] Implanted:Qty: 1 on 02/25/2024 by Dimitri Velasquez MD at [facility] Prosthetic Valve N/A: Aortic Valve [employer] 08/25/2026 [id number] / [id number] / [employer] 18f Manta Vascular Closure Device 2115 - S0 - [id number] Implanted:Qty: 1 on 02/25/2024 by Dimitri Velasquez MD at [facility] Vascular Closure Device N/A: Femoral [employer]flex [employer] Inc 05/11/20255 / 0 / [id number] Explanted Type Area Rehabilitation Consultant Device Identifier Shelf Expiration Date Model / Serial / Lot Icd-06/05/2016 Implanted:2015 by Hong Bernstein MD (Quantity not on file) Explanted:Qty: 1 on 11/26/2022 by Hong Bernstein MD at [facility] ICD Chest Medtronic VIVA QUAD / / Description:Medtronic DDD Vi va Quad XT ENVIRONMENTAL SYSTEMS COORDINATOR-D implanted on 06/05/16 for ICM/CHF/Afib-flutter. Chronic RA [...] LAB BLOOD ORDERABLES Final Resul t [facility] [address] [place] [address] * CT Chest Abdomen Pelvis WO Contrast [...] mm x 36 mm x 35 mm nyrp-ij-uhxubvbzbu Sinotubular junction: 29 mm x 34 mm Distance to RCA ostium from aortic valve annulus: 15 mm Distance to left main ostium from annulus: 14 mm Deployment angle: 2 TAIWANESE, 9 CAU Right coronary sinus height: 18 [...] diffuse esophageal thickening compared to prior CT 2020. ??Small hiatal hernia. ??No pleural effusion. ??No [...] mm x 36 mm x 35 mm ifim-xl-rnzviqkkll Sinotubular junction: 29 mm x 34 mm Distance to RCA ostium from aortic valve annulus: 15 mm Distance to left main ostium from annulus: 14 mm Deployment angle: 2 TAIWANESE, 9 CAU Right coronary sinus height: 18 [...] diffuse esophageal thickening compared to prior CT 2020. Small hiatal hernia. No pleural effusion. No [...] 19. Hep B core IgM Nonreactive Nonreactive [facility] Comment: Interpretive Data If HepB Core IgM Ab is reported as Equivocal, a new sample should be drawn in two weeks for testing. Current interpretive data was last revised on 19. Hep C Ab Nonreactive Nonreactive [facility] Comment: Interpretive Data Nonreactive: Antibodies to HCV [...] last revised on 2019. HepBsAg Nonreactive Nonreactive [facility] Blood 12/19/2023 4:23 AM CDT 12/19/2023 4:38 AM CDT Eliza Wei MD LAB MICROBIOLOGY - [facility] ORDERABLES Final Result [facility] [address] [place] [address] * (ABNORMAL) Hemoglobin A1c (12/19/2023 3:00 AM CDT) Hgb A1C 7.9(H) 4.0 - 5.6 % Estimated Average Glucose 180 mg/dL [facility] Comment: The ADA recommends reporting an estimated Average Glucose (eAG) with all Hemoglobin A1c results using the equation derived from a study of 507 normal and diabetic adults. ??Minority populations were underrepresented and children were not included. ?? (Diabetes Care 31:4249-0450, 2008). ??The eAG is not equivalent to a fasting glucose. Blood 12/19/2023 3:00 AM CDT 12/19/2023 3:38 AM CDT us Zak Reardon MD LAB BLOOD ORDERABLES Final Res ult [facility] [address] Department of Laboratories [place], [place] [id number] * Lipid panel (12/19/2023 3:00 AM CDT) [...] revised on 2018. Triglycerides 85 <=149 mg/dL [facility] Comment: Interpretive Data Ages < or = [...] revised on 2018. HDL 40 >=40 mg/dL [facility] Comment: Interpretive Data Ages < or = [...] on 2018. LDL, calculated 58 <=129 mg/dL [facility] Comment: Interpretive Data Ages < or = [...] revised on 2018. Non-HDL Cholesterol 75 mg/dL [facility] Comment: Interpretive Data Ages < or = [...] last revised on 2018. Chol/HDL ratio 3 [facility] Blood 12/19/2023 3:00 AM CDT 12/19/2023 3:37 AM CDT us Zak Reardon MD LAB BLOOD ORDERABLES Final Res ult [facility] [address] [place] [address] from Last 3 Months or Most Recently Relevant to Health Maintenance Insurance MEDICARE [facility] MEDICARE [facility] MEDICARE [facility] Advance Directives For more information, please contact: [phone] * Full Code (Latest Code Status on [...] 2:11 PM 12/18/2023 2:11 PM Care Teams Card Feeder Relationship Specialty Start Date End Date Aimee Devine MD [address] [place] [address] PCP - General 05/21/20 Kit Flores MD Consulting Physician Cardiology 07/23/18 Ainsley Huntley MD [address] [place] [address] Radiation Oncologist Radiation Oncology 04/14/19 Malcolm Pierce MD [address] [place] [address] Consulting Physician Hematology and Oncology 05/16/20 Giacomo Garcia MD [address] [place] [address] Consulting Physician Cardiothoracic Surgery 01/09/24 Eliza Wei MD [address] [place] [address] Truck Jumper Nephrology 01/22/24 Dimitri Velasquez MD [address] [place] [address] Consulting Physician Interventional Cardiology 02/26/24
--- OUTSIDE RECORDS SUMMARY | 2024-10-19 15:25 | XMS_ITS | Clinical Summary ---
Author Organization [facility] Address [address] [facility] [place] [address] Phone Care Team Providers Care Public Health Service Officer Name Role Phone Chaparro Mathias Tiera DPM Unavailable [phone] Aimee Devine MD Primary Care Provider [phone] Allergies No known active allergies Medications bisacodyl EC (BISACODYL) 5 MG Tablet Delayed Response 2 times daily. Active calcium 500 MG Tablet daily. Active Magnesium Oxide 400 MG Capsule daily. Activ e atorvastatin (LIPITOR) 10 MG Tablet Active glipiZIDE (GLUCOTROL) 5 MG Tablet Active enalapril (VASOTEC) 5 MG Tablet Active amitriptyline (ELAVIL) 25 MG Tablet daily. Active tamsulosin (FLOMAX) 0.4 MG Capsule Active aspirin 81 MG Chewable Tablet Take 81 mg by mouth daily. Active Calcium Carbonate-Vitami n D (CALCIUM-VITAMIN D) 600-125 MG-UNIT Tablet Take by mouth. Active apixaban (ELIQUIS) 5 MG Tablet Take 5 mg by mouth 2 times daily. Active isosorbide mononitrate (IMDUR) 30 MG TABLET SR 24 HR TAKE ONE TABLET BY MOUTH DAILY 7 Active allopurinol (ZYLOPRIM) 300 MG Tablet Take 300 mg by mouth daily. Active carvedilol (COREG) 3.125 MG Tablet Take 3.125 mg by mouth 2 times daily. Active furosemide (LASIX) 20 MG TabletIndication s:saturday, ay and saturday Take 20 mg by mouth daily. Indications: saturday, day and saturday Active Polyethylene Glycol 3350 (MIRALAX PO) Take by mouth. Active VELTASSA 8.4 g Pack DISSOLVE 1 PACKET IN 1/3 CUP OF WATER AND DRINK ENTIRE LIQUID ONCE D UTD 0 Active SITagliptin (Januvia) 25 MG Tablet Take 25 mg by mouth daily. 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 Dermatophytosis, nail Diabetes mellitus with peripheral circulatory di sorder Benign paroxysmal positional vertigo Lumbar radiculopathy Immunizations Immunization Administration Dates Next Due Covid-19, Mrna, Lnp-s, Pf, 30 Mcg/0.3 Ml Dose (P fizer) 11/16/2020,10/26/2020 Influenza Vaccine greater than 3 yrs 07/29/2015 Pneumococcal Vaccine - 13 Valent 07/29/2015 Family History Relation Name Status Comments Father Mother Social History Tobacco Use Types Packs/Day Years Used Date Smoking Tobacco: Former Cigarettes 1 30 Smokeless Tobacco: Never Tobacco Cessation:Counseling Given: Yes Alcohol Use Standard Drinks/Week Comments No 0 (1 standard drink = 0.6 oz pur e alcohol) Sex and Gender Information Value Date Recorded Sex Assigned at Not on file Legal Sex Male 9:23 PM CDT Gender Identity Not on file Sexual Orientation Not on file Last Filed Vital Signs Vital Sign Reading Time Taken Comments Blood Pressure 136/80 01/26/2021 2:25 PM CDT Pulse 99 01/26/2021 2:25 PM CDT Temperature 36.4 ??C (97.5 ??F) 01/26/2021 2:25 PM CD T Respiratory Rate 18 01/26/2021 2:25 PM CDT Oxygen Saturation 97% 01/26/2021 2:25 PM CDT Inhaled Oxygen Concentration - - Weight 114.4 kg (252 lb 3.2 oz) 01/26/2021 2:25 PM CDT Height 177.8 cm (5' 10 ) 01/26/2021 2:25 PM CDT Body Mass Index 36.19 01/26/2021 2:25 PM CDT Plan of Treatment Health Maintenance Due Date Last Done Comments Diabetes: Eye Exam 1947 Diabetes: Foot Exam 1947 Diabetes: Hemoglobin A1c 1947 Hepatitis C Virus (HCV) Screening 1945 TdaP Immunization 1947 Diabetes: Nephropathy Screening 1965 Zoster Immunization (1 of 2) 1997 Pneumococcal Immunization (50+ years) (2 of 2 - PPSV23) 09/23/2015 07/29/2015 Respiratory Syncytial Virus (RSV) Immunization (Adult) (1 - 1-dose 75+ series) 2022 Influenza Immunization (#1) 05/24/202405/25, 07/29/2015 SARS-COV-2 Immunization ( season) 2024 05/15/2021, 11/16/2020, 10/26/2020 Pneumococcal Immunization Combined Discontinued 07/29/2015 Hepatitis B Immunization Aged Out No longer eligible based on patient's age to complete this topic Meningococcal Immunization (ACWY) Aged Out No longer eligible based on patient's age to complete this topic Rotavirus Immunization Aged Out No lo nger eligible based on patient's age to complete this topic Insurance MEDICARE Member Subscriber Plan / Payer (Ef fective 2012-Present) Name:Davonte He Member ID:[id number] Relation to Subscriber:Self Name:Davonte He Subscriber ID:[id number] Payer ID:[id number] Group ID:Not on file Type:Not on file Address: [address] [place] [address] [facility] Care Teams Public Health Service Officer Relationship Specialty Start Date End Date Aimee Devine MD [address] [place] [address] PCP - General Internal Medicine 10/30/19 Chaparro Mathias DPM Podiatry 08/15/15
--- OUTSIDE RECORDS SUMMARY | 2024-10-19 15:25 | XMS_ITS | Encounter Summary ---
Author Organization [facility] Address [address] [facility] [address] [place] [address] Care Team Providers Care Process Consultant Name Role Phone Damian Adam MD Primary Care Provider [phone] Kit Flores MD Unavailable [phone] Ainsley Huntley MD Unavailable [phone] Malcolm Pierce MD Unavailable Aimee Devine MD Primary Care Provider [phone] Giacomo Garcia MD Unavailable [phone] Eliza Wei MD Unavailable [phone] Dimitri Velasquez MD Unavailable Encounter Details Date Type Department Care Team (Late st Contact Info) Description 01/21/2017 Orders Only Arrhythmia Center Provider, MD Estephania [address] [place] [address] Social History Tobacco Use Types Packs/Day Years Used Date Smoking Tobacco: Former Cigarettes Q uit: 09/23/2014 Comments:Smoking History Pac ks/day: 10 Cigarettes Alcohol Use Standard Drinks/Week Comments No 0 (1 standard drink = 0.6 oz pur e alcohol) Sex and Gender Information Value Date Recorded Sex Assigned at Not on file Legal Sex Male 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 us Historical Provider [facility] Final Result documented in this encounter Visit Diagnoses Not on filedocumented in this encounter Care Teams Process Consultant Relationship Specialty Start Date End Date Damian Adam MD [address] [address] PCP - General 12/31/16 05/20/20 Aimee Devine MD [address] [place] [address] PCP - General 05/21/20 Kit Flores MD [address] [address] Consulting Physician Cardiology 07/23/18 Ainsley Huntley MD [address] [place], [place] [id number] Radiation Oncologist Radiation Oncology 04/14/19 Malcolm Pierce MD [address] [place] [address] Consulting Physician Hematology and Oncology 05/16/20 Giacomo Garcia MD [address] [place], [place] [phone] Consulting Physician Cardiothoracic Surgery 01/09/24 Eliza Wei MD [address] [place] [address] Patient Access Coordinator Nephrology 01/22/24 Dimitri Velasquez MD [address] [place] [address] Consulting Physician Interventional Cardiology 02/26/24 documented as of this encounter
--- OUTSIDE RECORDS SUMMARY | 2024-10-19 15:25 | XMS_ITS | Encounter Summary ---
Author Organization [facility] Address [address] [facility] [address] [place] [address] Care Team Providers Care Explosive Operator Bomb Name Role Phone Damian Adam MD Primary Care Provider [phone] Della Beckett MD Primary Care Provider [phone] Kit Flores MD Unavailable [phone] Ainsley Huntley MD Unavailable Malcolm Pierce MD Unavailable Aimee Devine MD Primary Care Provider [phone] Giacomo Garcia MD Unavailable [phone] Eliza Wei MD Unavailable [phone] Dimitri Vleasquez MD Unavailable Encounter Details Date Type Department Care Team (Late st Contact Info) Description 10/22/2016 Orders Only Arrhythmia Center Provider, MD Estephania [facility] [place] [address] Social History Tobacco Use Types Packs/Day Years Used Date Smoking Tobacco: Former Cigarettes Q uit: 09/23/2014 Comments:Smoking History Pac ks/day: 10 Cigarettes Alcohol Use Standard Drinks/Week Comments No 0 (1 standard drink = 0.6 oz pur e alcohol) Sex and Gender Information Value Date Recorded Sex Assigned at Not on file 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 Historical Provider [facility] Final Result documented in this encounter Visit Diagnoses Not on filedocumented in this encounter Care Teams Explosive Operator Bomb Relationship Specialty Start Date End Date Damian dAam MD [address] [place] [address] PCP - General 12/31/16 05/20/20 Della Beckett MD [address]) [phone] [place], [place] [id number] PCP - General 06/18/16 12/30/16 Aimee Devine MD [address] [place], [place] [phone] PCP - General 05/21/20 Kit Flroes MD [phone]) [phone] [place], [place] [id number] Consulting Physician Cardiology 07/23/18 Ainsley Huntley MD [address] [place] [address] Radiation Oncologist Radiation Oncology 04/14/19 Malcolm Pierce MD [address] [place] [address] Consulting Physician Hematology and Oncology 05/16/20 Giacomo Garcia MD [address] [place] [address] Consulting Physician Cardiothoracic Surgery 01/09/24 Eliza Wei MD [address] [place] [address] Porcelain Turner Nephrology 01/22/24 Dimitri Velasquez MD [address] [place] [address] Consulting Physician Interventional Cardiology 02/26/24 documented as of this encounter
--- OUTSIDE RECORDS SUMMARY | 2024-10-19 15:25 | XMS_ITS | Encounter Summary ---
Author Organization [facility] Address [address] [place] [address] Phone Care Team Providers Care Hard Rock Drill Operator Name Role Phone Chaparro Mathias DPM Unavailable [phone] Aimee Devine MD Primary Care Provider [phone] Reason for Visit * Reason Comments Medication Refill Encounter Details Date Type Department Care Team (Late st Contact Info) Description 11/18/2019 Refill [facility] - Neurology [facility] [address] [place] [phone] Ebenezer Gutierrez MD [address] [place] [address] Medication Refill Social History Tobacco [...] on filedocumented in this encounter Care Teams Hard Rock Drill Operator Relationship Specialty Start Date End Date Aimee Devine MD [address] [place] [address] PCP - General Internal Medicine 10/30/19 Chaparro Mathias DPM Podiatry 08/15/15 documented as of this encounter
== END 2024-10-19 14:28 | disposition home or self-care (01) ==
LOC: CHSIMG 14:29
PROVIDERS: PCP Internal Medicine; Visit Provider Internal Medicine
DX: M25.511 Pain in right shoulder (principal); M19.011 Primary osteoarthritis, right shoulder; M79.89 Other specified soft tissue disorders
CPT/HCPCS: 73030

== ENCOUNTER 2024-10-22 12:03 | Outpatient (CLI) | payer MEDICARE, OTHER, SELFPAY ==
--- NOTE | ~2024-10-22 | CT_ITS ---
EXAMINATION: CT shoulder RT wo con DATE: 10/22/2024 12:21 INDICATION: Chronic right shoulder pain. TECHNIQUE: Computed tomography (CT) of the right shoulder was performed without intravenous contrast. Automated exposure control and iterative reconstruction technique were employed. The dose-length pro duct was 553.42 mGy-cm. COMPARISON: Right shoulder radiographs 10/19/2024 FINDINGS: There are changes of aortic valve replacement. There is superior subluxation of the humeral head with narrowing of the subacromial space, consistent with rotator cuff tear. No fracture. There is severe osteoarthritis of acromioclavicular joint and moderate osteoarthritis of glenohumeral joint . There is a large glenohumeral joint effusion with loose bodies. IMPRESSION: 1. 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 2. Large glenohumeral joint effusion with loose bodies. 3. Rotator cuff tear. Reviewed, dictated and finalized at location A. OR MAINTENANCE MACHINIST
--- OUTSIDE RECORDS SUMMARY | 2024-10-22 12:51 | XMS_ITS | Encounter Summary ---
Author Organization [facility] Address [address] [place] [address] Phone Care Team Providers Care Assistant Professor Surgical Technology Name Role Phone Chaparro Mathias DPM Unavailable [phone] Aimee Devine MD Primary Care Provider [phone] Reason for Visit * Reason Comments Medication Refill Encounter Details Date Type Department Care Team (Late st Contact Info) Description 02/16/2020 Refill [facility] [address] [facility] [place] [id number] Ebenezer Gutierrez MD [address] [place] [address] Medication Refill Social History Tobacco [...] on filedocumented in this encounter Care Teams Assistant Professor Surgical Technology Relationship Specialty Start Date End Date Aimee Devine MD [address] [place] [address] PCP - General Internal Medicine 10/30/19 Chaparro Mathias DPM Podiatry 08/15/15 documented as of this encounter
--- OUTSIDE RECORDS SUMMARY | 2024-10-22 12:51 | XMS_ITS | Clinical Summary ---
Author Organization [facility] Address [address] [facility] [place] [address] Phone Care Team Providers Care Tow Operator Name Role Phone Chaparro Mathias Tiera DPM Unavailable [phone] Aimee Devine MD Primary Care Provider Allergies No known active allergies Medications bisacodyl [...] age to complete this topic Insurance MEDICARE [facility] Care Teams Tow Operator Relationship Specialty Start Date End Date Aimee Devine MD [address] [place] [address] PCP - General Internal Medicine 10/30/19 Chaparro Mathias DPM Podiatry 08/15/15
--- OUTSIDE RECORDS SUMMARY | 2024-10-22 12:51 | XMS_ITS | Encounter Summary ---
Author Organization [facility] Address [address] [place] [address] Phone Care Team Providers Care Lockstitch Binder Name Role Phone Chaparro Mathias DPM Unavailable [phone] Aimee Devine MD Primary Care Provider [phone] Reason for Visit * Reason Comments Medication Refill Encounter Details Date Type Department Care Team (Late st Contact Info) Description 11/18/2019 Refill [facility] - [facility] #[address] [facility] [place] [id number] Ebenezer Gutierrez MD [address] [place] [address] Medication Refill Social History Tobacco [...] on filedocumented in this encounter Care Teams Lockstitch Binder Relationship Specialty Start Date End Date Aimee Devine MD [address] [place] [address] PCP - General Internal Medicine 10/30/19 Chaparro Mathias DPM Podiatry 08/15/15 documented as of this encounter
--- OUTSIDE RECORDS SUMMARY | 2024-10-22 12:51 | XMS_ITS | Clinical Summary ---
Author Organization [facility] Address [address] [place] [address] Care Team Providers Care Personal Protection Specialist Name Role Phone Kit Flores MD Unavailable Ainsley Huntley MD Unavailable [phone] Malcolm Pierce MD Unavailable Aimee Devine MD Primary Care Provider [phone] Giacomo Garcia MD Unavailable Eliza Wei MD Unavailable [phone] Dimitri Velasquez MD Unavailable Allergies No known [...] asso ciated with type 2 diabetes mellitus ([facility]) 08/25/2021 Achalasia 06/10/2020 Secondary polycythemia 05/13/2020 Atrial fibrillation ([facility]) 12/29/2018 Overview (12/29/2018): Added automatically from request for surgery [id number] Assessment & Plan (04/02/2024 3:22 PM CDT): Continue carvedilol and Eliquis. Assessment & Plan (01/15/2024 10:46 AM CDT): Maintain normal sinus rhythm on physical exam, continue carvedilol and Eliquis. Anticoagulation management encounter 04/13/2018 Assessment & Plan (04/13/2018 11:15 AM CDT): The patient has a [id number]-ERLs score of 4 (annualized risk of stroke [...] Overview (04/10/2017): Medtronic DDD Viva Quad XT SERVICE ORDER DISPATCHER CHIEF-D implanted on 06/05/16 for ICM/CHF/Afib-flutter. Chronic RA and RV leads are from 07-11-15. New LV lead placed 06/05/16. Day Gregg Card Assessment & Plan (01/13/2024 2:53 PM CDT): Severe ischemic cardiomyopathy, status post SERVICE ORDER DISPATCHER CHIEF-D. The patient's device was interrogated and found [...] patient will continue to follow with his core piler regarding ongoing management of his heart failure. [...] artery disease of n ative artery of [place] heart with stable angina pectoris 05/16/2015 Overview [...] Encounters Date Type Department Care Team Description 10/20/2024 12:30 PM ELIGIBILITY AND OCCUPANCY INTERVIEWER Ancillary Procedure Arrhythmia Center [address] [address] Cardiomyopathy, ischemic 10/08/2024 Telephone [facility] Cardiology [address] [place] [address] Kit Flores MD Med Management [...] mellitus (HCC) D iabetes type 2; Comments: [facility] 05/05/2015 - Hypertension Hypertension Osteoarthritis Osteoarthritis; Comments: [facility] 05/05/2015 - Chronic obstructive pulmonar y disease (HCC) COPD AICD (automatic cardioverter/defibrillator) present 04/10/2017 Medtronic DDD Viva Quad XT SERVICE ORDER DISPATCHER CHIEF-D implanted on 06/05/16 for ICM/CHF/Afib-flutter. Chronic RA and RV leads are from 07-11-15. New LV lead placed 06/05/16. [place] [facility] Atrial fibrillation (CMS/HCC) (HCC) Hyperlipidemia Coronary artery disease Stroke (HCC) balance is off Kidney stones BPH (benign prostatic hyperplasia) Mitral regurgitation Myocardial infarction (HCC) NSTE AL Cardiogenic shock (HCC) Aortic stenosis Sleep apnea [...] drink = 0.6 oz pur e alcohol) [employer] Utilities Answer Date Recorded In the past 12 months has [employer], oil, or water Brndstr threatened to shut off services in your [...] week 02/26/2024 How often do you attend [facility] or sikh services? Never 02/26/2024 Do you belong to [...] place to sleep or slept in a alf (including now)? No 01/31/2024 Housing Stability Vital Sign Answer Enrique e Recorded In the last 12 months, was t here a time when you were not able to pay the mortgage or rent on time? No 02/26/2024 In the past 12 months, how m any times have you moved where you were living? 1 02/26/2024 At any time in the past 12 m [facility], were you homeless or living in a alf (including now)? No 02/26/2024 Personal Safety Answer Date Recorded Have you ever been in or are you currently in a harmful physical or emotional relationship or is someone making you feel afraid or unsafe? Denies 02/25/2024 Sex and Gender Information Value Date Recorded Sex Assigned at Not on file Legal Sex Male 11:02 AM ELIGIBILITY AND OCCUPANCY INTERVIEWER Gender Identity Not on file Sexual Orientation [...] Risk Assessment 02/25/2025 02/26/2024 eGFR 02/25/2025 02/26/2024, 12/2023, 02/11/2024, Additional history exists Hepatitis C Screening Completed 12/19/2023 Abdominal Aortic Aneurysm (A AA) Screen Completed 01/22/2024, 12/19/2023, 05/21/2020 Medical Devices Implanted Type Area Caustic Plant Worker Device Identifier Shelf Expiration Date Model / Serial / Lot Medtronic Inc Cardiac [place] Hf 2 Chamber Df4 Inline Cnctr Is4 [id number] - [id number] - [id number] Implanted:Qty: 1 on 11/26/2022 by Hong Bernstein MD at [facility] ICD Medtronic Inc [id number] 03/20/2024 [id number] / [id number] / Dodson [employer]esciences Valve Heart 26mm Horacio 3 Transcatheter [id number] - [id number] - [id number] Implanted:Qty: 1 on 02/25/2024 by Dimitri Velasquez MD at [facility] Prosthetic Valve N/A: Aortic Valve Dodson [employer]iences 08/25/2026 [id number] / [id number] / Teleflex Medical Inc 18f Manta Vascular Closure Device 2115 - S0 - [id number] Implanted:Qty: 1 on 02/25/2024 by Dimitri Velasquez MD at [facility] Vascular Closure Device N/A: Femoral Teleflex Medical Inc 05/11/20255 / 0 / [id number] Explanted Type Area Caustic Plant Worker Device Identifier Shelf Expiration Date Model / Serial / Lot Icd-06/05/2016 Implanted:2015 by Hong Bernstein MD (Quantity not on file) Explanted:Qty: 1 on 11/26/2022 by Hong Bernstein MD at [facility] ICD Chest Medtronic VIVA QUAD / / Description:Medtronic DDD Vi va Quad XT SERVICE ORDER DISPATCHER CHIEF-D implanted on 06/05/16 for ICM/CHF/Afib-flutter. Chronic RA and RV leads are from 07-11-15. New LV lead placed 06/05/16. Day - Silvino-Flores Card Procedures Procedure Name Priority Date/Time Associated [...] LAB BLOOD ORDERABLES Final Resul t [facility] [address] Department [place] [address] * CT Chest Abdomen Pelvis WO Contrast [...] mm x 36 mm x 35 mm amri-iv-nruxgagora Sinotubular junction: 29 mm x 34 mm Distance to RCA ostium from aortic valve annulus: 15 mm Distance to left main ostium from annulus: 14 mm Deployment angle: 2 TAMAZIGHT, 9 CAU Right coronary sinus height: 18 [...] mm x 36 mm x 35 mm tdmd-ta-kjuwexylaw Sinotubular junction: 29 mm x 34 mm Distance to RCA ostium from aortic valve annulus: 15 mm Distance to left main ostium from annulus: 14 mm Deployment angle: 2 TAMAZIGHT, 9 CAU Right coronary sinus height: 18 [...] 19. Hep B core IgM Nonreactive Nonreactive [facility] Comment: Interpretive Data If HepB Core IgM Ab is reported as Equivocal, a new sample should be drawn in two weeks for testing. Current interpretive data was last revised on 19. Hep C Ab Nonreactive Nonreactive [facility] Comment: Interpretive Data Nonreactive: Antibodies [...] last revised on 2019. HepBsAg Nonreactive Nonreactive [facility] Blood 12/19/2023 4:23 AM CDT 12/19/2023 4:38 AM CDT Eliza Wei MD LAB MICROBIOLOGY - [facility] ORDERABLES Final Result [facility] [address] Department [place] [address] * (ABNORMAL) Hemoglobin A1c (12/19/2023 3:00 AM CDT) Hgb A1C 7.9(H) 4.0 - 5.6 % Estimated Average Glucose 180 mg/dL [facility] Comment: The ADA recommends reporting an estimated Average Glucose (eAG) with all Hemoglobin A1c results using the equation derived from a study of 507 normal and diabetic adults. ??Minority populations were underrepresented and children were not included. ?? (Diabetes Care 31:0549-1343, 2008). ??The eAG is not equivalent to a fasting glucose. Blood 12/19/2023 3:00 AM CDT 12/19/2023 3:38 AM CDT us Zak Reardon MD LAB BLOOD ORDERABLES Final Res ult [facility] [address] Department [place] [address] * Lipid panel (12/19/2023 3:00 AM CDT) [...] revised on 2018. Triglycerides 85 <=149 mg/dL [facility] Comment: Interpretive Data Ages < [...] revised on 2018. HDL 40 >=40 mg/dL [facility] Comment: Interpretive Data Ages < [...] on 2018. LDL, calculated 58 <=129 mg/dL [facility] Comment: Interpretive Data Ages < [...] revised on 2018. Non-HDL Cholesterol 75 mg/dL [facility] Comment: Interpretive Data Ages < [...] revised on 2018. Chol/HDL ratio 3 [facility] Blood 12/19/2023 3:00 AM CDT 12/19/2023 3:37 AM CDT us Zak Reardon MD LAB BLOOD ORDERABLES Final Res ult [facility] [address] Department [place] [address] from Last 3 Months or Most Recently Relevant to Health Maintenance Insurance MEDICARE [facility]ICARE [facility]IC[facility] Advance Directives For more information, please contact: [phone] * Full Code (Latest Code Status on [...] 2:11 PM 12/18/2023 2:11 PM Care Teams Personal Protection Specialist Relationship Specialty Start Date End Date Aimee Devine MD [address] [place] [address] PCP - General 05/21/20 Kit Flores MD Consulting Physician Cardiology 07/23/18 Ainsley Huntley MD [address] [place] [address] Radiation Oncologist Radiation Oncology 04/14/19 Malcolm Pierce MD [address] [place] [address] Consulting Physician Hematology and Oncology 05/16/20 Giacomo Garcia MD [address] [place] [address] Consulting Physician Cardiothoracic Surgery 01/09/24 Eliza Wei MD [address] [place] [address] Auto Carrier Driver Nephrology 01/22/24 Dimitri Velasquez MD [address] [place] [address] Consulting Physician Interventional Cardiology 02/26/24
--- OUTSIDE RECORDS SUMMARY | 2024-10-22 12:51 | XMS_ITS | Referral Summary ---
Author Organization [facility] Building C Address [address] [place] [address] Care Team Providers Care Street Cleaner Name Role Phone Kit Flores MD Unavailable Ainsley Huntely MD Unavailable [phone] Malcolm Pierce MD Unavailable Aimee Devine MD Primary Care Provider [phone] Giacomo Garcia MD Unavailable Eliza Wei MD Unavailable Dimitri Velasquez MD Unavailable Encounters Date Type Department Care Team Description 10/20/2024 12:30 PM SHIP SCRAPER Ancillary Procedure Arrhythmia Center [address] [address] Cardiomyopathy, ischemic 10/08/2024 Telephone [facility] Cardiology [address] [place] [address] Kit Flores MD Med Management [...] asso ciated with type 2 diabetes mellitus ([facility]) 08/25/2021 Achalasia 06/10/2020 Secondary polycythemia 05/13/2020 Atrial fibrillation ([facility]) 12/29/2018 Overview (12/29/2018): Added automatically from request for surgery [id number] Assessment & Plan (04/02/2024 3:22 PM CDT): Continue carvedilol and Eliquis. Assessment & Plan (01/15/2024 10:46 AM CDT): Maintain normal sinus rhythm on physical exam, continue carvedilol and Eliquis. Anticoagulation management encounter 04/13/2018 Assessment & Plan (04/13/2018 11:15 AM CDT): The patient has a WJC0GQ2-BINa score of 4 (annualized risk of stroke [...] Overview (04/10/2017): Medtronic DDD Viva Quad XT INSTRUCTIONAL DEVELOPER-D implanted on 06/05/16 for ICM/CHF/Afib-flutter. Chronic RA and RV leads are from 07-11-15. New LV lead placed 06/05/16. Day Gregg Card Assessment & Plan (01/13/2024 2:53 PM CDT): Severe ischemic cardiomyopathy, status post INSTRUCTIONAL DEVELOPER-D. The patient's device was interrogated and found [...] patient will continue to follow with his civil engineering project manager regarding ongoing management of his heart failure. 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 Never 02/26/2024 Do you belong to any clubs o r organizations such as muslim groups, unions, fraternal or athletic groups, or [...] place to sleep or slept in a custodial (including now)? No 01/31/2024 Housing Stability Vital Sign Answer Enrique e Recorded In the last 12 months, was t here a time when you were not able to pay the mortgage or rent on time? No 02/26/2024 In the past 12 months, how m any times have you moved where you were living? 1 02/26/2024 At any time in the past 12 m [facility], were you homeless or living in a custodial (including now)? No 02/26/2024 Personal Safety Answer Date Recorded Have you ever been in or are you currently in a harmful physical or emotional relationship or is someone making you feel afraid or unsafe? Denies 02/25/2024 Sex and Gender Information Value Date Recorded Sex Assigned at Not on file Legal Sex Male 11:02 AM SHIP SCRAPER Gender Identity Not on file Sexual Orientation [...] on file Medical Devices Implanted Type Area School Administrator Device Identifier Shelf Expiration Date Model / Serial / Lot Medtronic Inc Cardiac [place] Hf 2 Chamber Df4 Inline Cnctr Is4 [id number] - [id number] - [id number] Implanted:Qty: 1 on 11/26/2022 by Hong Bernstein MD at [facility] ICD Medtronic Inc [id number] 03/20/2024 [id number] / [id number] / Dodson [employer] Valve Heart 26mm Horacio 3 Transcatheter [id number] - [id number] - [id number] Implanted:Qty: 1 on 02/25/2024 by Dimitri Velasquez MD at [facility] Prosthetic Valve N/A: Aortic Valve [employer] 08/25/2026 [id number] / [id number] / Teleflex Medical Inc 18f Manta Vascular Closure Device 2115 - S0 - [id number] Implanted:Qty: 1 on 02/25/2024 by Dimitri Velasquez MD at [facility] Vascular Closure Device N/A: Femoral Teleflex [employer] Inc 05/11/20255 / 0 / [id number] Explanted Type Area School Administrator Device Identifier Shelf Expiration Date Model / Serial / Lot Icd-06/05/2016 Implanted:2015 by Hong Bernstein MD (Quantity not on file) Explanted:Qty: 1 on 11/26/2022 by Hong Bernstein MD at [facility] ICD Chest Medtronic VIVA QUAD / / Description:Medtronic DDD Vi va Quad XT INSTRUCTIONAL DEVELOPER-D implanted on 06/05/16 for ICM/CHF/Afib-flutter. Chronic RA and RV leads are from 07-11-15. New LV lead placed 06/05/16. Day Dubois-Mark Card Procedures Procedure Name Priority Date/Time Associated [...] of Race in Diagnosing Kidney Disease, JASN 202). The CKD-EPI equation should not be used for patients with unstable renal function and has not been validated in children and those over 70. Current interpretive data was last reviewed 2021. Blood 02/26/2024 6:43 AM CDT 02/26/2024 7:00 AM CDT us Dimitri Ron [place] LAB BLOOD ORDERABLES Final Resul t [facility] [address] Department [place] [address] * CT Chest Abdomen Pelvis WO [...] mm x 36 mm x 35 mm ddhk-bf-beoqtfwcka Sinotubular junction: 29 mm x 34 mm Distance to RCA ostium from aortic valve annulus: 15 mm Distance to left main ostium from annulus: 14 mm Deployment angle: 2 DJIBOUTIAN, 9 CAU Right coronary sinus height: 18 [...] mm x 36 mm x 35 mm hnat-mu-ontwshtolh Sinotubular junction: 29 mm x 34 mm Distance to RCA ostium from aortic valve annulus: 15 mm Distance to left main ostium from annulus: 14 mm Deployment angle: 2 DJIBOUTIAN, 9 CAU Right coronary sinus height: 18 [...] 19. Hep B core IgM Nonreactive Nonreactive [facility] Comment: Interpretive Data If HepB Core IgM Ab is reported as Equivocal, a new sample should be drawn in two weeks for testing. Current interpretive data was last revised on 19. Hep C Ab Nonreactive Nonreactive [facility] Comment: Interpretive Data Nonreactive: [...] last revised on 2019. HepBsAg Nonreactive Nonreactive [facility] Blood 12/19/2023 4:23 AM CDT 12/19/2023 4:38 AM CDT us Eliza Wei MD LAB MICROBIOLOGY - GENE RAL ORDERABLES Final Result Performing Organization Address [facility] Co de Phone Number [facility] [address] [place] [address] * (ABNORMAL) Hemoglobin A1c (12/19/2023 3:00 AM CDT) Hgb A1C 7.9(H) 4.0 - 5.6 % Estimated Average Glucose 180 mg/dL [facility] Comment: The ADA recommends reporting an estimated Average Glucose (eAG) with all Hemoglobin A1c results using the equation derived from a study of 507 normal and diabetic adults. ??Minority populations were underrepresented and children were not included. ?? (Diabetes Care 31:6212-8048, 2008). ??The eAG is not equivalent to a fasting glucose. Blood 12/19/2023 3:00 AM CDT 12/19/2023 3:38 AM CDT us Zak Reardon MD LAB BLOOD ORDERABLES Final Res ult Performing Organization Address [facility]/ZIP Co de Phone Number [facility] [address] [place] [address] * Lipid panel (12/19/2023 3:00 AM CDT) [...] revised on 2018. Triglycerides 85 <=149 mg/dL [facility] Comment: Interpretive Data Ages [...] revised on 2018. HDL 40 >=40 mg/dL [facility] Comment: Interpretive Data Ages [...] on 2018. LDL, calculated 58 <=129 mg/dL [facility] Comment: Interpretive Data Ages [...] revised on 2018. Non-HDL Cholesterol 75 mg/dL [facility] Comment: Interpretive Data Ages [...] last revised on 2018. Chol/HDL ratio 3 [facility] Blood 12/19/2023 3:00 AM CDT 12/19/2023 3:37 AM CDT us Zak Reardon MD LAB BLOOD ORDERABLES Final Res ult [facility] [address] Department [place] [address] from Last 3 Months or Most Recently Relevant to Health Maintenance Insurance MEDICARE [facility] MEDICARE AARP [facility] Advance Directives For more information, please contact: [phone] * Full Code (Latest Code Status on [...] 2:11 PM 12/18/2023 2:[address] Cleaner Relationship Specialty Start Date End Date Aimee Devine MD [address] [place] [address] PCP - General 05/21/20 Kit Flores MD Consulting Physician Cardiology 07/23/18 Ainsley Huntley MD [address] [place], [place] [id number] Radiation Oncologist Radiation Oncology 04/14/19 Malcolm Pierce MD [address] [place], [place] [id number] Consulting Physician Hematology and Oncology 05/16/20 Giacomo Garcia MD [address] [place] [address] Consulting Physician Cardiothoracic Surgery 01/09/24 Eliza Wei MD [address] [place] [address] Jockey Room Custodian Nephrology 01/22/24 Dimitri Velasquez MD [address] [place] [address] Consulting Physician Interventional Cardiology 02/26/24
--- OUTSIDE RECORDS SUMMARY | 2024-10-22 12:51 | XMS_ITS | Encounter Summary ---
Author Organization [facility] Medical Group Address [address] [facility] [address] [place] [address] Care Team Providers Care Trauma Nurse Name Role Phone Damian Adam MD Primary Care Provider [phone] Kit Flores MD Unavailable [phone] Ainsley Huntley MD Unavailable [phone] Malcolm Pierce MD Unavailable Aimee Devine MD Primary Care Provider + [phone] Giacomo Garcia MD Unavailable [phone] Eliza Wei MD Unavailable [phone] Dimitri Velasquez MD Unavailable Encounter Details Date Type Department Care Team (Late st Contact Info) Description 01/21/2017 Orders Only Arrhythmia Center Provider, MD Estephania [address] [place] [address] Social History Tobacco Use Types Packs/Day Years Used Date Smoking Tobacco: Former Cigarettes Q uit: 09/23/2014 Comments:Smoking History Pac ks/day: 10 Cigarettes Alcohol Use Standard Drinks/Week Comments No 0 (1 standard drink = 0.6 oz pur e alcohol) Sex and Gender Information Value Date Recorded Sex Assigned at Not on file Legal Sex Male 11:02 AM PHY THERAPIST Gender Identity Not on file Sexual Orientation [...] on filedocumented in this encounter Care Teams Trauma Nurse Relationship Specialty Start Date End Date Damian Adam MD [address] [address] PCP - General 12/31/16 05/20/20 Aimee Devine MD [address] [place] [address] PCP - General 05/21/20 Kit Flores MD [address] [address] Consulting Physician Cardiology 07/23/18 Ainsley Huntley MD [address] [place], [place] [address] Radiation Oncologist Radiation Oncology 04/14/19 Malcolm Pierce MD [address] [place] [address] Consulting Physician Hematology and Oncology 05/16/20 Giacomo Garcia MD [address] [place], [place] [address] Consulting Physician Cardiothoracic Surgery 01/09/24 Eliza Wei MD [address] [place] [address] Police Reserves Commander Nephrology 01/22/24 Dimitri Velasquez MD [address] [place] [address] Consulting Physician Interventional Cardiology 02/26/24 documented as of this encounter
--- OUTSIDE RECORDS SUMMARY | 2024-10-22 12:51 | XMS_ITS | Encounter Summary ---
Author Organization [facility] Medical Group Address [address] [facility] [address] [place] [address] Care Team Providers Care Fiscal Specialist Name Role Phone Damian Adam MD Primary Care Provider [phone] Della Beckett MD Primary Care Provider [phone] Kit Flores MD Unavailable [phone] Ainsley Huntley MD Unavailable [phone] Malcolm Pierce MD Unavailable Aimee Devine MD Primary Care Provider + [phone] Giacomo Garcia MD Unavailable [phone] Eliza Wei MD Unavailable [phone] Dimitri Velasquez MD Unavailable Encounter Details Date Type Department Care Team (Late st Contact Info) Description 10/22/2016 Orders Only Arrhythmia Center Provider, MD [facility] [place] [address] Social History Tobacco Use Types Packs/Day Years Used Date Smoking Tobacco: Former Cigarettes Q uit: 09/23/2014 Comments:Smoking History Pac ks/day: 10 Cigarettes Alcohol Use Standard Drinks/Week Comments No 0 (1 standard drink = 0.6 oz pur e alcohol) Sex and Gender Information Value Date Recorded Sex Assigned at Not on file Legal Sex Male 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 MEMBER Gender Identity Not on file Sexual Orientation [...] on filedocumented in this encounter Care Teams Fiscal Specialist Relationship Specialty Start Date End Date Damian Adam MD [address] [place] [address] PCP - General 12/31/16 05/20/20 Della Beckett MD [address] 048) [phone] [place], [place] [address] PCP - General 06/18/16 12/30/16 Aimee Devine MD [address] [place], [place] [address] PCP - General 05/21/20 Kit Flores MD [address] [phone]) [phone] [place], [place] [id number] Consulting Physician Cardiology 07/23/18 Ainsley Huntley MD [address] [facility] [place] [address] Radiation Oncologist Radiation Oncology 04/14/19 Malcolm Pierce MD [address] [place] [address] Consulting Physician Hematology and Oncology 05/16/20 Giacomo Garcia MD [address] [place] [address] Consulting Physician Cardiothoracic Surgery 01/09/24 Eliza Wei MD [address] [place] [address] Garment Sorter Nephrology 01/22/24 Dimitri Velasquez MD [address] [place] [address] Consulting Physician Interventional Cardiology 02/26/24 documented as of this encounter
--- OUTSIDE RECORDS SUMMARY | 2024-10-22 12:52 | XMS_ITS | Encounter Summary ---
Author Organization [facility] Address [address] [place] [address] Phone Care Team Providers Care Biometrics Head Name Role Phone Chaparro Mathias DPM Unavailable [phone] Aimee Devine MD Primary Care Provider [phone] Reason for Visit * Reason Comments Medication Refill Encounter Details Date Type Department Care Team (Late st Contact Info) Description 08/06/2021 Refill [facility] - Neurology [facility] [address] [place] [id number] Ebenezer Gutierrez MD [address] [place] [address] Medication Refill Social History Tobacco [...] Dept 01/26/21 Office Visit Ebenezer Gutierrez MD [facility] Neurology [address] 10/31/20 Office Visit Ebenezer Gutierrez MD [facility] Neurology [place] Showing recent visits within past 365 days and meeting all other requirements Future Appointments No visits were found meeting these conditions. Showing future appointments within next 90 days and meeting all other requirements AL ASSISTING INSTRUCTOR documented in this encounter Plan of Treatment Not on file documented as of this encounter Visit Diagnoses Not on filedocumented in this encounter Care Teams Biometrics Head Relationship Specialty Start Date End Date Aimee Devine MD [address] [place] [address] PCP - General Internal Medicine 10/30/19 Chaparro Mathias DPM Podiatry 08/15/15 documented as of this encounter
--- OUTSIDE RECORDS SUMMARY | 2024-10-22 12:53 | XMS_ITS | Continuity of Care Document ---
Author Organization [facility] Address [address] [place] [address] Phone Care Team Providers Care Mask Inspector Name Role Phone Billy Watson MD Unavailable Unavailable Allergies, Adverse Reactions, Alerts Substance Reaction Status Criticality No Known Allergies Active No Inform ation Medications Medication Instructions Dosage Effective Dates (start - stop) Status Comments BIDIL (unknown strength) Not Available - Active ALLOPURINOL (unknown strength) Not Available - Active ATORVASTATIN CALCIUM (unknown strength) Not Available - Active SPIRONOLACTONE (unknown strength) Not Available - Active ELIQUIS (unknown strength) Not Available - Active CARVEDILOL (unknown strength) Not Available - Active LASIX (unknown strength) Not Available - Active HYDRALAZINE HCL (unknown strength) Not Available - Active GLIPIZIDE (unknown strength) Not Available - Active GABAPENTIN (unknown strength) Not Available - Active AMITRIPTYLINE HCL (unknown strength) Not Available - Active TAMSULOSIN HCL (unknown strength) Not Available - Active hydralazine 25 mg tablet take 1 tablet by oral route 2 times every day with food 25 MG - Active ASPIR 81 (unknown strength) Not Available - Active CALCIUM (unknown strength) Not Available - Active Procedures Procedure Date Office/outpatient visit,est, mod 2016 Office/outpatient visit,new, mod 2016 Asp/inject major joint or bursa w/o US g uidance Kenalog Triamcinolone acetonide inj Advance Directives Directive Yes / No Effective Date File Name No Information Encounters Encounter Description Practice Location Reason(s) For Visit Diagnoses Date Provider Providers Copied on Encounter Office/outpat ient visit,est, [facility], [address] [address], [place], [place], [id number], tel:[phone] [facility] r shoulder (chief complaint) Incomplete rotatr-cuff tear/ruptr of r shoulder, not trauma Walter Cervantes. [address] [facility], [facility] [address], [place], [place], [id number] , . [phone] Referring Provider: Billy Carey, [address] [place] [address] [address] [facility], [place], [address] . tel:[phone] Office/outpat ient visit,[facility], [facility], [address] [address], [place], [place], [id number], tel:[phone] [facility] r shoulder (chief complaint) Incomplete rotator cuff rupture of right shoulder, not specified as traumatic Walter Cervantes. [address] [facility], [address] [address], [place], [place], [id number] , [place]. [phone] Referring Provider: Billy Carey, [facility] [address], [place], [address] . tel:[phone] Family History Family Member Type Diagnosis Age At Onset Mother Problem (finding) Heart trouble Father Problem (finding) Heart trouble Nephew Problem (finding) coronary arterioscleros is Nephew Problem (finding) diabetes mellitus type 2 Mother Problem (finding) Diabetes mellitus Payers Payer name Insurance type Covered alliance party ID Authoriza tion(s) Medicare [facility] Part B [id number] [facility] CI [id number] Social History Type Description Quantity Date Captured Comments Alcohol Use Details No Caffeine Use Details Unknown Tobacco Use Status Ex-cigarette smoker 017 Smoking Status Former smoker Sex Male Chief Complaint And Reason For Visit From encounter dated '08/01/2017 10:20'. r shoulder (chief complaint). Description: patient presents to the office today for follow up rightshoulder pain. Reason For Referral Reason For Referral No Information History Of Present Illness Encounter Date Complaint History Of Prese nt Illness r shoulder patient presents to the office today for follow up right shoulder pain. r shoulder patient presents to the office today for evaluation of right shoulder pain. He states that several years ago he fell and used his arm to break the fall and has had increasing pain since. Functional Status Date Functional Assessmen t No Information Instructions Date Instruction Additional Infor mation No Information Assessments Type Assessment Date No Information Patient Care Teams Name Effective Dates (start - stop) Status Members No Information
--- OUTSIDE RECORDS SUMMARY | 2024-10-22 12:53 | XMS_ITS | Encounter Summary ---
Author Organization [facility] Address [address] [place] [address] Care Team Providers Care Plug Stitcher Name Role Phone Damian Adam MD Primary Care Provider [phone] Kit Flores MD Unavailable [phone] Ainsley Huntley MD Unavailable [phone] Malcolm Pierce MD Unavailable Aimee Devine MD Primary Care Provider [phone] Giacomo Garcia MD Unavailable [phone] Eliza Wei MD Unavailable [phone] Dimitri Velasquez MD Unavailable Encounter Details Date Type Department Care Team (Late st Contact Info) Description 05/19/2020 Telephone [facility] [address] [place] [address] Transcribed Order, Provider Social History Tobacco Use Types Packs/Day Years Used Date Smoking Tobacco: Former Smokeless Tobacco: Never Comments:Smoking History Pac ks/day: 10 Cigarettes Alcohol Use Standard Drinks/Week Comments No 0 (1 standard drink = 0.6 oz pur e alcohol) Sex and Gender Information Value Date Recorded Sex Assigned at Not on file Legal Sex Male 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 Gender Identity Not on file Sexual Orientation Not on file documented as of this encounter Plan of Treatment Not on file documented as of this encounter Visit Diagnoses Not on filedocumented in this encounter Care Teams Plug Stitcher Relationship Specialty Start Date End Date Damian Adam MD [address] [address] PCP - General 12/31/16 05/20/20 Aimee Devine MD [address] [place] [address] PCP - General 05/21/20 Kit Flores MD [address] [address] Consulting Physician Cardiology 07/23/18 Ainsley Huntley MD [address] [place] [address] Radiation Oncologist Radiation Oncology 04/14/19 Malcolm Pierce MD [address] [place], [place] [address] Consulting Physician Hematology and Oncology 05/16/20 Giacomo Garcia MD [address] [place] [address] Consulting Physician Cardiothoracic Surgery 01/09/24 Eliza Wei MD [address] [place] [address] Skirt Panel Assembler Nephrology 01/22/24 Dimitri Velasquez MD [address] [place] [address] Consulting Physician Interventional Cardiology 02/26/24 documented as of this encounter
== END 2024-10-22 12:04 | disposition home or self-care (01) ==
LOC: CHSIMG 12:04
PROVIDERS: PCP Internal Medicine; Visit Provider Internal Medicine
DX: M25.511 Pain in right shoulder (principal); M19.011 Primary osteoarthritis, right shoulder; M25.411 Effusion, right shoulder; M24.011 Loose body in right shoulder; M75.101 Unspecified rotator cuff tear or rupture of right shoulder, not specified as traumatic
CPT/HCPCS: 73200

== ENCOUNTER 2024-11-02 08:23 | Outpatient (CLI) | payer MEDICARE, SELFPAY ==
--- OUTSIDE RECORDS SUMMARY | 2024-11-02 08:35 | XMS_ITS | Clinical Summary ---
Author Organization [facility] Address [address] [facility], [place] [address] Phone Care Team Providers Care Supervisor Coil Winding Name Role Phone Chaparro Mathias Tiera DPM Unavailable [phone] Aimee Devine MD Primary Care Provider [phone] Allergies No known active allergies Medications bisacodyl [...] 99 01/26/2021 2:25 PM CDT Temperature 36.4 C (97.5 F) 01/26/2021 2:25 PM CDT Respiratory Rate 18 01/26/2021 2:25 PM CDT [...] age to complete this topic Insurance MEDICARE [facility] Care Teams Supervisor Coil Winding Relationship Specialty Start Date End Date Aimee Devine MD [address] [place] [address] PCP - General Internal Medicine 10/30/19 Chaparro Mathias DPM Podiatry 08/15/15
--- OUTSIDE RECORDS SUMMARY | 2024-11-02 08:35 | XMS_ITS | Encounter Summary ---
Author Organization [facility] Medical Group Address [address] [facility] [address] [place] [address] Care Team Providers Care Television Mechanic Name Role Phone Damian Adam MD Primary Care Provider [phone] Kit Flores MD Unavailable [phone] Ainsley Huntley MD Unavailable [phone] Malcolm Pierce MD Unavailable Aimee Devine MD Primary Care Provider [phone] Giacomo Garcia MD Unavailable [phone] Eliza Wei MD Unavailable [phone] Dimitri Velasquez MD Unavailable Encounter Details Date Type Department Care Team (Late st Contact Info) Description 01/21/2017 Orders Only Arrhythmia Center Provider, MD Estephania [address] [place] [address] Social History Tobacco Use Types Packs/Day Years Used Date Smoking Tobacco: Former Cigarettes Q uit: 09/23/2014 Comments:Smoking History Pac ks/day: 10 Cigarettes Alcohol Use Standard Drinks/Week Comments No 0 (1 standard drink = 0.6 oz pur e alcohol) Sex and Gender Information Value Date Recorded Sex Assigned at Not on file Legal Sex Male 11:02 AM CISCO ADMINISTRATOR Gender Identity Not on file Sexual Orientation [...] on filedocumented in this encounter Care Teams Television Mechanic Relationship Specialty Start Date End Date Damian Adam MD [address] [address] PCP - General 12/31/16 05/20/20 Aimee Devine MD [address] [place] [address] PCP - General 05/21/20 Kit Flores MD [address] [address] Consulting Physician Cardiology 07/23/18 Ainsley Huntley MD [address] [place], [place] [address] Radiation Oncologist Radiation Oncology 04/14/19 Malcolm Pierce MD [address] [place] [address] Consulting Physician Hematology and Oncology 05/16/20 Giacomo Garcia MD [address] [place], [place] [address] Consulting Physician Cardiothoracic Surgery 01/09/24 Eliza Wei MD [address] [place] [address] Build Engineer Nephrology 01/22/24 Dimitri Velasquez MD [address] [place] [address] Consulting Physician Interventional Cardiology 02/26/24 documented as of this encounter
--- OUTSIDE RECORDS SUMMARY | 2024-11-02 08:35 | XMS_ITS | Referral Summary ---
Author Organization [facility] Address [address] [place] [address] Care Team Providers Care Operations Controller Name Role Phone Kit Flores MD Unavailable [phone] Ainsley Huntley MD Unavailable [phone] Malcolm Pierce MD Unavailable Aimee Devine MD Primary Care Provider [phone] Giacomo Garcia MD Unavailable Eliza Wei MD Unavailable Dimitri Velasquez MD Unavailable Encounters Date Type Department Care Team Description 10/20/2024 12:30 PM COMPENSATOR Ancillary Procedure Arrhythmia Center [address] [facility] [address] [place] [address] ICD (implantable cardioverter-defibr illator) in place (Primary Dx); Cardiomyopathy, ischemic 10/08/2024 Telephone [facility] [address] [place] [address] Kit Flores MD Med Management [...] asso ciated with type 2 diabetes mellitus ([facility]) 08/25/2021 Achalasia 06/10/2020 Secondary polycythemia 05/13/2020 Atrial fibrillation ([facility]) 12/29/2018 Overview (12/29/2018): Added automatically from request for surgery [id number] Assessment & Plan (04/02/2024 3:22 PM CDT): Continue carvedilol and Eliquis. Assessment & Plan (01/15/2024 10:46 AM CDT): Maintain normal sinus rhythm on physical exam, continue carvedilol and Eliquis. Anticoagulation management encounter 04/13/2018 Assessment & Plan (04/13/2018 11:15 AM CDT): The patient has a [id number] score of 4 (annualized risk of stroke [...] Overview (04/10/2017): Medtronic DDD Viva Quad XT AIRPORT SCREENER-D implanted on 06/05/16 for ICM/CHF/Afib-flutter. Chronic RA and RV leads are from 07-11-15. New LV lead placed 06/05/16. Day Gregg Card Assessment & Plan (01/13/2024 2:53 PM CDT): Severe ischemic cardiomyopathy, status post AIRPORT SCREENER-D. The patient's device was interrogated and found [...] patient will continue to follow with his radiology technologist regarding ongoing management of his heart failure. 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 Paroxysmal atrial fibrillation ([facility]) 04/13/2018 05/27/2019 Assessment & Plan (04/13/2018 11:15 [...] drink = 0.6 oz pur e alcohol) [facility] Utilities Answer Date Recorded In the [...] often do you attend chur ch or muslim services? Never 02/26/2024 Do you belong to any clubs o r organizations such as jewish groups, unions, fraternal or athletic groups, or [...] any time in the past 12 m [facility], were you homeless or living in a alf (including now)? No 02/26/2024 Personal Safety Answer Date Recorded Have you ever been in or are you currently in a harmful physical or emotional relationship or is someone making you feel afraid or unsafe? Denies 02/25/2024 Sex and Gender Information Value Date Recorded Sex Assigned at Not on file Legal Sex Male 11:02 AM COMPENSATOR Gender Identity Not on file Sexual Orientation Not on file Last Filed Vital Signs Vital Sign Reading Time Taken Comments Blood Pressure 116/70 04/02/2024 2:53 PM CDT Pulse 100 04/02/2024 2:53 PM CDT Temperature 36.6 C (97.9 F) 02/26/2024 12:04 PM CDT Respiratory Rate 18 02/26/2024 12:04 PM CDT Oxygen Saturation 99% 04/02/2024 2:53 PM CDT Inhaled Oxygen Concentration - - Weight 98.2 kg (216 lb 9.6 oz) 04/02/2024 2:53 P M CDT Height 177.8 cm (5' 10 ) 04/02/2024 2:53 PM CDT Body Mass Index 31.08 04/02/2024 2:53 PM CDT Plan of Treatment Not on file Medical Devices Implanted Type Area Sizing Sponger Device Identifier Shelf Expiration Date Model / Serial / Lot Medtronic Inc Cardiac Eden Hf 2 Chamber Df4 Inline Cnctr Is4 [id number] - [id number] - [id number] Implanted:Qty: 1 on 11/26/2022 by Hong Bernstein MD at [facility] ICD Medtronic Inc [id number] 03/20/2024 [id number] / [id number] / [employer] Valve Heart 26mm Horacio 3 Transcatheter [id number] - [id number] - [id number] Implanted:Qty: 1 on 02/25/2024 by Dimitri Velasquez MD at [facility] Prosthetic Valve N/A: Aortic Valve [employer] 08/25/2026 [id number] / [id number] / [employer] 18f Manta Vascular Closure Device 2115 - S0 - [id number] Implanted:Qty: 1 on 02/25/2024 by Dimitri Velasquez MD at [facility] Vascular Closure Device N/A: Femoral [employer] Inc 05/11/20255 / 0 / [id number] Explanted Type Area Sizing Sponger Device Identifier Shelf Expiration Date Model / Serial / Lot Icd-06/05/2016 Implanted:2015 by Hong Bernstein MD (Quantity not on file) Explanted:Qty: 1 on 11/26/2022 by Hong Bernstein MD at [facility] ICD Chest Medtronic VIVA QUAD / / Description:Medtronic DDD Vi va Quad XT AIRPORT SCREENER-D implanted on 06/05/16 for ICM/CHF/Afib-flutter. Chronic RA and RV leads are from 07-11-15. New LV lead placed 06/05/16. Day Dubois-Mark Card Procedures Procedure Name Priority Date/Time Associated Diagnosis Comments DEVICE CHECK - REMOTE Routine 10/20/2024 10:23 AM COMPENSATOR Cardiomyopathy, ischemic EGFR Routine 02/26/2024 6:[address] CHEST ABDOMEN PELVIS WO CONTRAST Schedule Routine, Read Routine (OP Routine) 01/22/2024 9:45 AM CDT Nonrheumatic aortic valve stenosis HEPATITIS PANEL, ACUTE Routine 12/19/2023 4:23 AM CDT HEMOGLOBIN A1C Routine 12/19/2023 3:00 AM CDT LIPID PANEL Routine 12/19/2023 3:00 AM CDT from Last 3 Months or Most Recently Relevant to Health Maintenance Results * DEVICE CHECK - REMOTE (10/20/2024 10:23 AM COMPENSATOR) Anatomical Region Laterality Modality Other Narrative 10/27/2024 11:07 AM COMPENSATOR Table formatting from the original result was not included. BiV ICD CHECK (REMOTE) Patient ID: Val Noble is a 79 y.o. male. This patient received a Medtronic BiV ICD. They had a routine remote transmission on 10/20/2024 Device implant indications: Ischemic cardiomyopathy Interrogation of the patient's device demonstrates the following: Presenting EGM: Bi V paced @ 70 bpm Original Device Settings Right Ventricle Left Ventricle Sensitivity (mV) 0.45 mV N/A mV Pacing Outputs 1.5 V @ 0.4 ms 1.25 V @ 0.6 ms Testing Measurements Right Ventricle Left Ventricle Sensitivity (mV) 7.0 mV Not done mV Impedence (Ohms) 418 ohms 722 ohms Pace Threshold 0.875 V @ 0.4 ms 0.75 V @ 0.6 ms Pacing % 99.8 % 99.8 % HV Lead Impedance 71 ohms N/A Battery Status: 8.[address] [facility], charge time 3.8 seconds. Episodes last 90 days/Comments: There was 1 episode of nonsustained ventricular tachycardia lasting proximally 3 seconds at a rate of 190 beats per minute. There were no treated ventricular arrhythmias noted on today's remote interrogation. NORMAL DEVICE FUNCTION PROGRAMMED MEDICATIONS: Anti-coagulant(s): Eliquis 5 mg twice daily, aspirin 81 mg daily Anti-arrhythmic(s): Coreg 3.125 mg twice daily PLAN: 1) Medtronic BiV ICD evaluation 2) Medtronic remote transmission scheduled in 3 months. 3) Programming appropriate for device settings Marquise Fields RN Hong Bernstein MD CV CARDIAC SERVICES PRO CEDURES Final Result * (ABNORMAL) eGFR (02/26/2024 6:43 AM CDT) eGFR 29(L) >=60 mL/min/1. 73 m2 Comment: Interpretive Data Reference Interval Normal >/= 90 mL/min/1.73m2 Mildly decreased* 60 - 89 mL/min/1.73m2 Mildly to moderately decreased 45 - 59 mL/min/1.73m2 Moderately to severely decreased 30 - 44 mL/min/1.73m2 Severely decreased 15 - 29 mL/min/1.73m2 Kidney Failure < 15 mL/min/1.73m2 *Relative to young adult level Estimated glomerular [...] LAB BLOOD ORDERABLES Final Resul t [facility] [address] Department [place] [address] * CT Chest Abdomen Pelvis WO Contrast (01/22/2024 9:45 AM CDT) Anatomical Region Laterality Modality Body N/A Computed Tomogra phy 01/23/2024 8:36 AM CDT Impressions 01/23/2024 10:00 AM CDT 1. Aortic annulus, and abdominal aortic, common [...] mm x 36 mm x 35 mm csmt-ez-krmhsxizup Sinotubular junction: 29 mm x 34 mm Distance to RCA ostium from aortic valve annulus: 15 mm Distance to left main ostium from annulus: 14 mm Deployment angle: 2 MALAYSIAN, 9 CAU Right coronary sinus height: 18 [...] suspicious osseous lesions. Fat-containing bilateral inguinal hernias. Procedure Note Brittany Lawson MD - 01/23/2024 [...] mm x 36 mm x 35 mm osaz-uo-syvxrcakvc Sinotubular junction: 29 mm x 34 mm Distance to RCA ostium from aortic valve annulus: 15 mm Distance to left main ostium from annulus: 14 mm Deployment angle: 2 MALAYSIAN, 9 CAU Right coronary sinus height: 18 [...] it. Electronically signed by: Brittany Lawson M.D. us Karly Castaneda PROJECT ARCHITECT IMG CT PROCEDURES Final Re sult * Hepatitis panel, acute Blood (12/19/2023 4:23 AM CDT) Hep A IgM Nonreactive Nonreactive Comment: Interpretive Data: If Hep A IgM Ab is reported as Equivocal, a new sample should be drawn in two weeks for testing. Current interpretive data was last revised on 19. Hep B core IgM Nonreactive Nonreactive [facility] Comment: Interpretive Data If HepB Core IgM Ab is reported as Equivocal, a new sample should be drawn in two weeks for testing. Current interpretive data was last revised on 19. Hep C Ab Nonreactive Nonreactive [facility] Comment: Interpretive Data Nonreactive: Antibodies to HCV not detected. Does NOT exclude the possibility of recent exposure to HCV. Equivocal: Equivocal for HCV antibodies. Supplemental molecular testing will be automatically performed to determine infection status in accordance with current CDC screening recommendations. Reactive: Positive for HCV antibodies. This may represent current or past HCV infection. Supplemental molecular testing will be automatically performed to determine current infection status in accordance with current CDC screening recommendations. Interpretive data was last revised on 2019. HepBsAg Nonreactive Nonreactive [facility] Blood 12/19/2023 4:23 AM CDT 12/19/2023 4:38 AM CDT Eliza Wei MD LAB MICROBIOLOGY - GENE RAL ORDERABLES Final Result [facility] [address] Department of Laboratories [place], [place] [id number] * (ABNORMAL) Hemoglobin A1c (12/19/2023 3:00 AM CDT) Hgb A1C 7.9(H) 4.0 - 5.6 % Estimated Average Glucose 180 mg/dL [facility] Comment: The ADA recommends reporting an estimated Average Glucose (eAG) with all Hemoglobin A1c results using the equation derived from a study of 507 normal and diabetic adults. Minority populations were underrepresented and children were not included. (Diabetes Care 31:7874-2047, 2008). The eAG is not equivalent to a fasting glucose. Blood 12/19/2023 3:00 AM CDT 12/19/2023 3:38 AM CDT us Zak Reardon MD LAB BLOOD ORDERABLES Final Res ult [facility] [address] Department [place] [address] * Lipid panel (12/19/2023 3:00 AM CDT) Cholesterol 115 30 - 199 mg/dL Comment: Interpretive Data Ages < or = 19 years Acceptable: <170 mg/dL Borderline high: 170-199 mg/dL High: >or= 200 mg/dL Ages > or = 20 years Desirable: <200 mg/dL Borderline high: 200-239 mg/dL High: >or= 240 mg/dL Literature References: 1. Expert Panel on Integrated Guidelines for Cardiovascular Health and Risk Reduction in Children and Adolescents. Pediatrics 2011;128:S213 2. NCEP Expert Panel. Circulation 2004;110:227 Current Interpretive Data was last revised on 2018. Triglycerides 85 <=149 mg/dL [facility] Comment: Interpretive Data Ages < or = 9 years Acceptable: <75 mg/dL Borderline high: 75-99 mg/dL High: >or= 100 mg/dL Ages 10 to 20 years Acceptable: <90 mg/dL Borderline high: 90-129 mg/dL High: >or= 130 mg/dL Ages > or = 20 years Desirable: <150 mg/dL Borderline high: 150-199 mg/dL High: 200-499 mg/dL Very high: >or= 499 mg/dL Literature References: 1. Expert Panel on Integrated Guidelines for Cardiovascular Health and Risk Reduction in Children and Adolescents. Pediatrics 2011;128:S213 2. NCEP Expert Panel. Circulation 2004;110:227 Current Interpretive Data was last revised on 2018. HDL 40 >=40 mg/dL [facility] Comment: Interpretive Data Ages < or = 19 years Acceptable: >45 mg/dL Borderline low: 40-45 mg/dL Low: <40 mg/dL Ages > or = 20 years Desirable: >or= 60 mg/dL Low: <40 mg/dL Literature References: 1. Expert Panel on Integrated Guidelines for Cardiovascular Health and Risk Reduction in Children and Adolescents. Pediatrics 2011;128:S213 2. NCEP Expert Panel. Circulation 2004;110:227 Current Interpretive Data was last revised on 2018. LDL, calculated 58 <=129 mg/dL [facility] Comment: Interpretive Data Ages < or = 19 years Acceptable: <110 mg/dL Borderline high: 110-129 mg/dL High: >or= 130 mg/dL Ages > or = 20 years Optimal: <100 mg/dL Near optimal: 100-129 mg/dL Borderline high: 130-159 mg/dL High: >160 mg/dL Literature References: 1. Expert Panel on Integrated Guidelines for Cardiovascular Health and Risk Reduction in Children and Adolescents. Pediatrics 2011;128:S213 2. NCEP Expert Panel. Circulation 2004;110:227 Current Interpretive Data was last revised on 2018. Non-HDL Cholesterol 75 mg/dL [facility] Comment: Interpretive Data Ages < or = 19 years Acceptable: <120 mg/dL Borderline high: 120-144 mg/dL High: >145 mg/dL Ages > or = 20 years When triglycerides are >200 mg/dL, Non-HDL cholesterol is a secondary target of therapy with treatment goals that are 30 mg/dL greater than the LDL cholesterol target. Literature References: 1. Expert Panel on Integrated Guidelines for Cardiovascular Health and Risk Reduction in Children and Adolescents. Pediatrics 2011;128:S213 2. NCEP Expert Panel. Circulation 2004;110:227 Current Interpretive Data was last revised on 2018. Chol/HDL ratio 3 [facility] Blood 12/19/2023 3:00 AM CDT 12/19/2023 3:37 AM CDT us Zak Reardon MD LAB BLOOD ORDERABLES Final Res ult [facility] [address] Department [place] [address] from Last 3 Months or Most Recently Relevant to Health Maintenance Insurance MEDICARE [facility] MEDICARE AARP [facility] Advance Directives For more information, please contact: [phone] * Full Code (Latest Code Status on [...] 2:11 PM 12/18/2023 2:11 PM Care Teams Operations Controller Relationship Specialty Start Date End Date Aimee Devine MD [address] [place] [address] PCP - General 05/21/20 Kit Flores MD Consulting Physician Cardiology 07/23/18 Ainsley Huntley MD [address] [place], [place] [id number] Radiation Oncologist Radiation Oncology 04/14/19 Malcolm Pierce MD [address] [place], [place] [id number] Consulting Physician Hematology and Oncology 05/16/20 Giacomo Garcia MD [address] [place] [address] Consulting Physician Cardiothoracic Surgery 01/09/24 Eliza Wei MD [address] [place] [address] Industrial Design Engineer Nephrology 01/22/24 Dimitri Velasquez MD [address] [place] [address] Consulting Physician Interventional Cardiology 02/26/24
--- OUTSIDE RECORDS SUMMARY | 2024-11-02 08:35 | XMS_ITS | Continuity of Care Document ---
Author Organization [facility] Address [address] [place] [address] Phone Care Team Providers Care Marketing Finance Specialist Name Role Phone Billy Watson MD Unavailable [...] Providers Copied on Encounter Office/outpat ient visit,est, [facility], [address] [address], [place], [place], [id number], tel:[phone] [facility] r shoulder (chief complaint) Incomplete rotatr-cuff tear/ruptr of r shoulder, not trauma Walter Cervantes. [address] [facility] [address], [place], [place], [id number] , . [phone] Referring Provider: Billy Carey, [address] [place] [address] [address] [facility], [place], [address] . tel:[phone] Office/outpat ient visit,[facility], [facility], [address] [address], [place], [place], [address], tel:[phone] [facility] r shoulder (chief complaint) Incomplete rotator cuff rupture of right shoulder, not specified as traumatic Walter Cervantes. [address] [address], [place], [place], [id number] , [place]. [phone] Referring Provider: Bilyl Carey, [facility], [place], [address] . tel:[phone] Family History Family Member Type Diagnosis Age At Onset Mother Problem (finding) Heart trouble Father Problem (finding) Heart trouble Nephew Problem (finding) coronary arterioscleros is Nephew Problem (finding) diabetes mellitus type 2 Mother Problem (finding) Diabetes mellitus Payers Payer name Insurance type Covered alliance party ID Authoriza tion(s) Medicare [facility] Part B [id number] [facility] CI [id number] Social History Type Description Quantity Date Captured [...]
--- OUTSIDE RECORDS SUMMARY | 2024-11-02 08:35 | XMS_ITS | Encounter Summary ---
Author Organization [facility] Address [address] [place] [address] Care Team Providers Care Deputy Administrator Name Role Phone Damian Adam MD Primary Care Provider [phone] Della Beckett MD Primary Care Provider [phone] Kit Flores MD Unavailable [phone] Ainsley Huntley MD Unavailable [phone] Malcolm Pierce MD Unavailable Aimee Devine MD Primary Care Provider [phone] Giacomo Garcia MD Unavailable [phone] Eliza Wei MD Unavailable [phone] Dimitri Velasquez MD Unavailable Encounter Details Date Type Department Care Team (Late st Contact Info) Description 10/22/2016 Orders Only Arrhythmia Center Provider, MD [place] [address] Social History Tobacco Use Types Packs/Day Years Used Date Smoking Tobacco: Former Cigarettes Q uit: 09/23/2014 Comments:Smoking History Pac ks/day: 10 Cigarettes Alcohol Use Standard Drinks/Week Comments No 0 (1 standard drink = 0.6 oz pur e alcohol) Sex and Gender Information Value Date Recorded Sex Assigned at Not on file Legal Sex Male 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 BREEDER Gender Identity Not on file Sexual Orientation [...] on filedocumented in this encounter Care Teams Deputy Administrator Relationship Specialty Start Date End Date Damian Adam MD [address] [place] [address] PCP - General 12/31/16 05/20/20 Della Beckett MD [address] [phone] [place], [place] [id number] PCP - General 06/18/16 12/30/16 Aimee Devine MD [address] [place], [place] [id number] PCP - General 05/21/20 Kit Flores MD [address] [phone] [place], [place] [id number] Consulting Physician Cardiology 07/23/18 Ainsley Huntley MD [address] [place] [address] Radiation Oncologist Radiation Oncology 04/14/19 Malcolm Pierce MD [address] [place] [address] Consulting Physician Hematology and Oncology 05/16/20 Giacomo Garcia MD [address] [place] [address] Consulting Physician Cardiothoracic Surgery 01/09/24 Eliza Wei MD [address] [place] [address] Triage Assistant Nephrology 01/22/24 Dimitri Velasquez MD [address] [place] [address] Consulting Physician Interventional Cardiology 02/26/24 documented as of this encounter
--- OUTSIDE RECORDS SUMMARY | 2024-11-02 08:35 | XMS_ITS | Clinical Summary ---
Author Organization [facility] Building C Address [address] [place] [address] Care Team Providers Care Drug Abuse Worker Name Role Phone Kit Flores MD Unavailable [phone] Ainsley Huntley MD Unavailable [phone] Malcolm Pierce MD Unavailable Aimee Devine MD Primary Care Provider [phone] Giacomo Garcia MD Unavailable [phone] Eliza Wei MD Unavailable [phone] Dimitri Velasquez MD Unavailable Allergies No known [...] asso ciated with type 2 diabetes mellitus ([facility]) 08/25/2021 Achalasia 06/10/2020 Secondary polycythemia 05/13/2020 Atrial fibrillation ([facility]) 12/29/2018 Overview (12/29/2018): Added automatically from request for surgery [id number] Assessment & Plan (04/02/2024 3:22 PM CDT): Continue carvedilol and Eliquis. Assessment & Plan (01/15/2024 10:46 AM CDT): Maintain normal sinus rhythm on physical exam, continue carvedilol and Eliquis. Anticoagulation management encounter 04/13/2018 Assessment & Plan (04/13/2018 11:15 AM CDT): The patient has a [id number] score of 4 (annualized risk of stroke [...] Overview (04/10/2017): Medtronic DDD Viva Quad XT TWISTING FRAME OPERATOR-D implanted on 06/05/16 for ICM/CHF/Afib-flutter. Chronic RA and RV leads are from 07-11-15. New LV lead placed 06/05/16. Day Gregg Card Assessment & Plan (01/13/2024 2:53 PM CDT): Severe ischemic cardiomyopathy, status post TWISTING FRAME OPERATOR-D. The patient's device was interrogated and found [...] patient will continue to follow with his surgical oncologist regarding ongoing management of his heart failure. [...] artery disease of n ative artery of [place] heart with stable angina pectoris 05/16/2015 Overview [...] Department Care Team Description 10/20/2024 12:30 PM ARCHITECTURE FACULTY MEMBER Ancillary Procedure Ar[facility] [address], [place] [address] ICD (implantable cardioverter-defibr illator) in place (Primary Dx); Cardiomyopathy, ischemic 10/08/[address] [facility] Cardiology [address] [place] [address] Kit Flores MD Med Management [...] 05/05/2015 - Hypertension Hypertension Osteoarthritis Osteoarthritis; Comments: [facility] 05/05/2015 - Chronic obstructive pulmonar y disease (HCC) COPD AICD (automatic cardioverter/defibrillator) present 04/10/2017 Medtronic DDD Viva Quad XT TWISTING FRAME OPERATOR-D implanted on 06/05/16 for ICM/CHF/Afib-flutter. Chronic RA and RV leads are from 07-11-15. New LV lead placed 06/05/16. [place] [facility] Atrial fibrillation (CMS/HCC) (HCC) Hyperlipidemia Coronary artery disease Stroke (HCC) balance is off Kidney stones BPH (benign prostatic hyperplasia) Mitral regurgitation Myocardial infarction (HCC) NSTE [place] Cardiogenic shock (HCC) Aortic stenosis Sleep apnea [...] drink = 0.6 oz pur e alcohol) [employer] Utilities Answer Date Recorded In the past 12 months has [employer], gas, oil, or water [employer] threatened to shut off services in your [...] week 02/26/2024 How often do you attend [facility] or [facility] services? Never 02/26/2024 Do you belong to any clubs o r organizations such as sikh groups, unions, fraternal or athletic groups, or [...] place to sleep or slept in a mcc (including now)? No 01/31/2024 Housing Stability Vital Sign Answer Enrique e Recorded In the last 12 months, was t here a time when you were not able to pay the mortgage or rent on time? No 02/26/2024 In the past 12 months, how m any times have you moved where you were living? 1 02/26/2024 At any time in the past 12 m [facility], were you homeless or living in a mcc (including now)? No 02/26/2024 Personal Safety Answer Date Recorded Have you ever been in or are you currently in a harmful physical or emotional relationship or is someone making you feel afraid or unsafe? Denies 02/25/2024 Sex and Gender Information Value Date Recorded Sex Assigned at Not on file Legal Sex Male 11:02 AM ARCHITECTURE FACULTY MEMBER Gender Identity Not on file Sexual [...] A1C 06/20/2024 12/19/2023 Lipid Panel 12/18/2024 12/19/2023, 1111/2022, 05/31/2021, Additional history exists Fall Risk Assessment 02/25/2025 02/26/2024 eGFR 02/25/2025 02/26/2024, 06/0 12/2023, 02/11/2024, Additional history exists Hepatitis C Screening Completed 12/19/2023 Abdominal Aortic Aneurysm (A AA) Screen Completed 01/22/2024, 12/19/2023, 05/21/2020 Medical Devices Implanted Type [employer] Teacher Device Identifier Shelf Expiration Date Model / Serial / Lot Medtronic Inc Cardiac [place] Hf 2 Chamber Df4 Inline Cnctr Is4 [id number] - [id number] - [id number] Implanted:Qty: 1 on 11/26/2022 by Hong Bernstein MD at [facility] ICD Medtronic Inc [id number] 03/20/2024 [id number] / [id number] / [employer] Valve Heart 26mm Horacio 3 Transcatheter [id number] - [id number] - [id number] Implanted:Qty: 1 on 02/25/2024 by Dimitri Velasquez MD at [facility] Prosthetic Valve N/A: Aortic Valve [employer] 08/25/2026 [id number] / [id number] / [employer] 18f [place] Vascular Closure Device 2115 - S0 - [id number] Implanted:Qty: 1 on 02/25/2024 by Dimitri Velasquez MD at [facility] Vascular Closure Device N/A: Femoral [employer] Inc 05/11/2025 2115 / 0 / [id number] Explanted Type [employer] Teacher Device Identifier Shelf Expiration Date Model / Serial / Lot Icd-06/05/2016 Implanted:2015 by Hong Bernstein MD (Quantity not on file) Explanted:Qty: 1 on 11/26/2022 by Hong Bernstein MD at [facility] ICD Chest Medtronic VIVA QUAD / / Description:Medtronic DDD Vi va Quad XT TWISTING FRAME OPERATOR-D implanted on 06/05/16 for ICM/CHF/Afib-flutter. Chronic RA and RV leads are from 07-11-15. New LV lead placed 06/05/16. Day DuboisFlores Card Procedures Procedure Name Priority Date/Time Associated Diagnosis Comments DEVICE CHECK - REMOTE Routine 10/20/2024 10:23 AM ARCHITECTURE FACULTY MEMBER Cardiomyopathy, ischemic EGFR Routine 02/26/2024 6:43 AM [...] DEVICE CHECK - REMOTE (10/20/2024 10:23 AM ARCHITECTURE FACULTY MEMBER) Anatomical Region Laterality Modality Other Narrative 10/27/2024 11:07 AM ARCHITECTURE FACULTY MEMBER Table formatting from the original result was [...] ohms N/A Battery Status: 8.5 years to ODILON, charge time 3.8 seconds. Episodes last 90 [...] appropriate for device settings Marquise Fields RN us Hong Bernstein MD CV CARDIAC SERVICES PRO [...] LAB BLOOD ORDERABLES Final Resul t [facility] [address] Department [place] [address] * CT Chest Abdomen Pelvis WO Contrast [...] mm x 36 mm x 35 mm etjm-dv-qefvceamaw Sinotubular junction: 29 mm x 34 mm Distance to RCA ostium from aortic valve annulus: 15 mm Distance to left main ostium from annulus: 14 mm Deployment angle: 2 CHINESE, 9 CAU Right coronary sinus height: 18 [...] mm x 36 mm x 35 mm agdd-wv-baoruxaisq Sinotubular junction: 29 mm x 34 mm Distance to RCA ostium from aortic valve annulus: 15 mm Distance to left main ostium from annulus: 14 mm Deployment angle: 2 CHINESE, 9 CAU Right coronary sinus height: 18 [...] 19. Hep B core IgM Nonreactive Nonreactive [facility] Comment: Interpretive Data If HepB Core IgM Ab is reported as Equivocal, a new sample should be drawn in two weeks for testing. Current interpretive data was last revised on 19. Hep C Ab Nonreactive Nonreactive [facility] Comment: Interpretive Data Nonreactive: Antibodies to HCV [...] last revised on 2019. HepBsAg Nonreactive Nonreactive [facility] Blood 12/19/2023 4:23 AM CDT 12/19/2023 4:38 AM CDT Eliza Wei MD LAB MICROBIOLOGY - GENE RAL ORDERABLES Final Result Performing Organization Address [facility] de Phone Number [facility] [address] Department [place] [address] * (ABNORMAL) Hemoglobin A1c (12/19/2023 3:00 AM CDT) Hgb A1C 7.9(H) 4.0 - 5.6 % Estimated Average Glucose 180 mg/dL [facility] Comment: The ADA recommends reporting an estimated Average Glucose (eAG) with all Hemoglobin A1c results using the equation derived from a study of 507 normal and diabetic adults. Minority populations were underrepresented and children were not included. (Diabetes Care 31:9687-6376, 2008). The eAG is not equivalent to a fasting glucose. Blood 12/19/2023 3:00 AM CDT 12/19/2023 3:38 AM CDT us Zak Reardon MD LAB BLOOD ORDERABLES Final Res ult Performing Organization Address [facility] de Phone Number [facility] [address] [place] [address] * Lipid panel (12/19/2023 3:00 AM CDT) [...] revised on 2018. Triglycerides 85 <=149 mg/dL [facility] Comment: Interpretive Data Ages < or = [...] revised on 2018. HDL 40 >=40 mg/dL [facility] Comment: Interpretive Data Ages < or = [...] on 2018. LDL, calculated 58 <=129 mg/dL [facility] Comment: Interpretive Data Ages < or = [...] revised on 2018. Non-HDL Cholesterol 75 mg/dL [facility] Comment: Interpretive Data Ages < or = [...] last revised on 2018. Chol/HDL ratio 3 [facility] Blood 12/19/2023 3:00 AM CDT 12/19/2023 3:37 AM CDT us Zak Reardon MD LAB BLOOD ORDERABLES Final Res ult [facility] [address] Department [place] [address] from Last 3 Months or Most Recently Relevant to Health Maintenance Insurance MEDICARE [facility] MEDICARE [facility] MEDICARE [facility] Advance Directives For more information, please contact: [phone] * Full Code (Latest Code Status on [...] 2:11 PM 12/18/2023 2:11 PM Care Teams Drug Abuse Worker Relationship Specialty Start Date End Date Aimee Devine MD [address] [place] [address] PCP - General 05/21/20 Kit Flores MD Consulting Physician Cardiology 07/23/18 Ainsley Huntley MD [address] [place] [address] Radiation Oncologist Radiation Oncology 04/14/19 Malcolm Pierce MD [address] [place] [address] Consulting Physician Hematology and Oncology 05/16/20 Giacomo Garcia MD [address] [place] [address] Consulting Physician Cardiothoracic Surgery 01/09/24 Eliza Wei MD [address] [place] [address] Digital Technician Nephrology 01/22/24 Dimitri Velasquez MD [address] [place] [address] Consulting Physician Interventional Cardiology 02/26/24
--- OUTSIDE RECORDS SUMMARY | 2024-11-02 08:36 | XMS_ITS | Encounter Summary ---
Author Organization [facility] Address [address] [place] [address] Phone Care Team Providers Care Furnace Combination Analyst Name Role Phone Chaparro Mathias DPM Unavailable [phone] Aimee Devine MD Primary Care Provider [phone] Reason for Visit * Reason Comments Medication Refill Encounter Details Date Type Department Care Team (Late st Contact Info) Description 11/18/2019 Refill [facility] [address] [facility] [place] [phone] Ebenezer Gutierrez MD [address] [place] [address] Medication Refill Social History Tobacco [...] on filedocumented in this encounter Care Teams Furnace Combination Analyst Relationship Specialty Start Date End Date Aimee Devine MD [address] [place] [address] PCP - General Internal Medicine 10/30/19 Chaparro Mathias DPM Podiatry 08/15/15 documented as of this encounter
--- OUTSIDE RECORDS SUMMARY | 2024-11-02 08:36 | XMS_ITS | Encounter Summary ---
Author Organization [facility] Address [address] [place] [address] Phone Care Team Providers Care Collar Tailor Name Role Phone Chaparro Mathias DPM Unavailable [phone] Aimee Devine MD Primary Care Provider [phone] Reason for Visit * Reason Comments Medication Refill Encounter Details Date Type Department Care Team (Late st Contact Info) Description 02/16/2020 Refill [facility] [address] [facility] [place] [phone] Ebenezer Gutierrez MD [address] [place] [address] Medication Refill Social History Tobacco [...] on filedocumented in this encounter Care Teams Collar Tailor Relationship Specialty Start Date End Date Aimee Devine MD [address] [place] [address] PCP - General Internal Medicine 10/30/19 Chaparro Mathias DPM Podiatry 08/15/15 documented as of this encounter
--- OUTSIDE RECORDS SUMMARY | 2024-11-02 08:36 | XMS_ITS | Encounter Summary ---
Author Organization [facility] Address [address] [place] [address] Phone Care Team Providers Care Aircraft Maintenance Supervisor Name Role Phone Chaparro aMthias DPM Unavailable [phone] Aimee Devine MD Primary Care Provider [phone] Reason for Visit * Reason Comments Medication Refill Encounter Details Date Type Department Care Team (Late st Contact Info) Description 08/06/2021 Refill [facility] [address] [place] [phone] Ebenezer Gutierrez MD [address] [place] [address] Medication Refill Social History Tobacco [...] Gutierrez MD [facility] [place] [address] 10/31/20 Office Visit Ebenezer Gutierrez MD [facility] [place] Showing recent visits within past 365 days and meeting all other requirements Future Appointments No visits were found meeting these conditions. Showing future appointments within next 90 days and meeting all other requirements L SERVICE ENGINEER documented in this encounter Plan of Treatment Not on file documented as of this encounter Visit Diagnoses Not on filedocumented in this encounter Care Teams Aircraft Maintenance Supervisor Relationship Specialty Start Date End Date Aimee Devine MD [address] [place] [address] PCP - General Internal Medicine 10/30/19 Chaparro Mathias DPM Podiatry 08/15/15 documented as of this encounter
--- OUTSIDE RECORDS SUMMARY | 2024-11-02 08:36 | XMS_ITS | Encounter Summary ---
Author Organization [facility] Healthcare Address [address] [place] [address] Care Team Providers Care Rail Car Repairer Name Role Phone Damian Adam MD Primary Care Provider [phone] Kit Flores MD Unavailable [phone] Ainsley Huntley MD Unavailable [phone] Malcolm Pierce MD Unavailable Aimee Devine MD Primary Care Provider [phone] Giacomo Garcia MD Unavailable [phone] Eliza Wei MD Unavailable [phone] Dimitri Velasquez MD Unavailable Encounter Details Date Type Department Care Team (Late st Contact Info) Description 05/19/2020 Telephone [facility] - Imaging [address] [place] [address] Transcribed Order, Provider Social History Tobacco Use Types Packs/Day Years Used Date Smoking Tobacco: Former Smokeless Tobacco: Never Comments:Smoking History Pac ks/day: 10 Cigarettes Alcohol Use Standard Drinks/Week Comments No 0 (1 standard drink = 0.6 oz pur e alcohol) Sex and Gender Information Value Date Recorded Sex Assigned at Not on file Legal Sex Male 11:02 AM STICKER HAND Gender Identity Not on file Sexual Orientation Not on file documented as of this encounter Plan of Treatment Not on file documented as of this encounter Visit Diagnoses Not on filedocumented in this encounter Care Teams Rail Car Repairer Relationship Specialty Start Date End Date Damian Adam MD [address] [address] PCP - General 12/31/16 05/20/20 Aimee Devine MD [address] [place] [address] PCP - General 05/21/20 Kit Flores MD [address] [address] Consulting Physician Cardiology 07/23/18 Ainsley Huntley MD [address] [place] [address] Radiation Oncologist Radiation Oncology 04/14/19 Malcolm Pierce MD [address] [place], [place] [address] Consulting Physician Hematology and Oncology 05/16/20 Giacomo Garcia MD [address] [place] [address] Consulting Physician Cardiothoracic Surgery 01/09/24 Eliza Wei MD [address] [place] [address] Movement Education Specialist Nephrology 01/22/24 Dimitri Velasquez MD [address] [place] [address] Consulting Physician Interventional Cardiology 02/26/24 documented as of this encounter
[2024-11-02 09:32] LABS: Basophils Absolute Auto 0.06 K/mm3 (0.00-0.10); Basophils Percent Auto 0.7 % (0.0-1.0); Eosinophils Absolute Auto 0.17 K/mm3 (0.02-0.50); Hematocrit 50.2 % (37.0-46.0); Hemoglobin 16.4 g/dL (12.4-15.3); Immature Granulocyte Absolute 0.04 K/mm3 (0.00-0.00); Immature Granulocyte Percent A 0.5 % (0.0-0.0); Lymphocytes Absolute Auto 1.58 K/mm3 (1.10-4.50); Lymphocytes Percent Auto 18.2 % (18.0-42.0); Mean Corpuscular HGB Conc 32.7 g/dL (32-36); Mean Corpuscular Hemoglobin 32.5 pg (27.0-31.0); Mean Corpuscular Volume 99.6 fL (78.0-102.0); Mean Platelet Volume 11.6 fl (8.7-11.0); Monocytes Absolute Auto 0.92 K/mm3 (0.10-0.90); Monocytes Percent Auto 10.6 % (2.0-11.0); Neutrophils Absolute Auto 5.91 K/mm3 (1.70-7.20); Platelet Count Result 183 K/mm3 (150-420); Red Blood Count 5.04 M/mm3 (4.70-6.10); White Blood Count 8.7 K/mm3 (4.8-10.8)
[2024-11-02 09:35] LABS: Add Urine Microscopic? YES; Appearance Urine Clear (Clear); Bilirubin Urine Negative (Negative); Blood Urine Trace-intact (Negative); Color Urine Light Yellow (Yellow); Glucose Urine UA 3+ (Negative); Ketones Urine Negative (Negative); Leukocyte Esterase Ur Negative LEU/UL (Negative); Nitrate Urine Negative (Negative); Protein Urine 2+ (Negative); Specific Grav Ur 1.015 (1.010-1.020); Urobilinogen Urine 0.2 mg/dL (0.2-1.0); pH Urine 6.5 (5.0-8.0)
[2024-11-02 09:59] LABS: Bacteria Urine Trace /hpf; RBC Urine None seen /hpf (0-2); WBC Urine None seen /hpf (0-3)
[2024-11-02 10:11] LABS: Creatinine Urine 25.39 mg/dL (40-278); Total Protein Urine Random 87.2 mg/dL (0.0-11.9); Ur Ttl Prot Creatinine Ratio 3.43 mg/mg (0-0.20)
[2024-11-02 10:19] LABS: Alanine Aminotransferase 36 U/L (16-63); Albumin Level 4.1 g/dL (3.4-5.0); Alkaline Phosphatase 91 U/L (46-116); Anion Gap 7 mmol/L (4-12); Aspartate Amino Transferase 26 U/L (15-37); Blood Urea Nitrogen 67 mg/dL (7-18); Calcium 9.3 mg/dL (8.5-10.1); Carbon Dioxide 35 mmol/L (21-32); Chloride 97 mmol/L (98-108); Estimated Glomerular Filt Rate 21; Glucose 167 mg/dL (70-99); Osmolality Calculated 311 mOsm/kg (285-295); Potassium 3.8 mmol/L (3.5-5.1); Sodium 139 mmol/L (136-145); Total Protein 8.2 g/dL (6.4-8.2); Uric Acid 5.8 mg/dL (3.5-7.2)
[2024-11-03 12:09] LABS: Parathyroid Intact 67 pg/mL (16-77)
[2024-11-04 04:44] LABS: Vitamin D 25 Hydroxy 76 ng/mL (30-100)
== END 2024-11-02 08:24 | disposition home or self-care (01) ==
LOC: CHSLAB 08:27
PROVIDERS: PCP Internal Medicine; Visit Provider Internal Medicine Nephrology
DX: I50.9 Heart failure, unspecified (principal); N25.81 Secondary hyperparathyroidism of renal origin; N18.30 Chronic kidney disease, stage 3 unspecified
CPT/HCPCS: 36415; 80053; 81001; 82306; 82570; 83970; 84100; 84156; 84550; 85025

== ENCOUNTER 2024-11-02 08:47 | Outpatient (RCR) | payer MEDICARE, OTHER, SELFPAY ==
--- NOTE | 2024-11-02 09:32 | PTOPEVAL1 ---
Assessment and note entered by Kit Lechuga Evaluation Information Assessment Status Evaluation ICD-10 Condition Codes (PT) Pain in right shoulder M25.511 Onset 10/27/24 Subjective Information Pt. reports that he has had several years of right shoulder pain. He states that he has been taking pain medication for a long time, but has reduced use of pain medication in the past week. He describes pain on the front of the right shoulder. He states that pain is increased with attempting to reach overhead. He states that he cannot use the right arm to comb his hair or reach overhead. He states that pain will wake him on occasion and notices that he is very stiff in the morning. He states that he has had x-ray and CT scan and revealed severe arthritis and a rotator cuff tear. He states his goal is to reduce his pain and improve his mobility. Reported Pain Level Pain Score 2: Self Report Assessment PT Clinical Summary Pt. is a 79 year old, right hand dominant, male, who enters the clinic with right shoulder pain due to severe OA of the right shoulder and rotator cuff tendinopathy. He presents with impaired right shoulder strength, impaired right shoulder active ROM, functional decline and pain. Continued skilled PT is indicted in order to improve these areas to allow the pt. to be able to complete overhead ADL's with improved comfort and efficiency. Plan of Care Interventions Hot Pack/Cold Pack,Manual Therapy,Neuro Re- education,Patient/Caregiver Education,Therapeutic Activities,Therapeutic Exercise PT Services Indicated Yes Treatment Frequency and 2x/week x 12 visits Duration These treatments will address the objective and functional deficits as defined above. The patient will be advanced safely and appropriately in order for the patient to progress towards his/her prior level of function. Additional exercises will be introduced and as well as a comprehensive home exercise program upon discharge, if needed, ?to ensure carryover of functional gains achieved in the clinic. This treatment plan has been reviewed and agreement upon by the patient.
--- NOTE | 2024-12-15 11:34 | OPREHPOC ---
Outpatient Therapy Plan of Care This is a Multidisciplinary Plan of Care that may contain components documented by all disciplines (PT, OT, and ST.) PT Problem 1 PT Problem #1 Knowledge Deficit PT Goal 1 Goal / Goal Update Pt. will be independent with a HEP addressing mobility pentecostalism. Target Visit 2 Progress Met PT Problem 2 PT Problem #2 Impaired Range of Motion PT Goal 1 Goal / Goal Update Pt. will achieve ability to reach the occiput with the left u.e. for ease of grooming -met Pt. will be able to reach to the mid thoracic region with he right u.e. for ease of dressing - met Pt. will present with 120 degrees right shoulder flexion AROM against gravity. -adequate progress Target Visit 12 Progress Partially Met PT Problem 3 PT Problem #3 Impaired Strength PT Goal 1 Goal / Goal Update Pt. will present with 3/5 gross proximal right u.e . strength. Target Visit 12 Progress Met
--- NOTE | 2024-12-15 11:35 | PTOPDC ---
Assessment and note entered by Bridget Wild, PT Evaluation Information Assessment Status Discharge ICD-10 Condition Codes (PT) Pain in right shoulder M25.511 Onset 10/27/24 Subjective Information Mr. He reports that his right shoulder is doing much better. He is noting that his range of motion has at least doubled. He has been performing stretches and weights at home and does not feel limited with daily activities due to shoulder pain. Reported Pain Level Pain Score 0: Self Report Assessment PT Clinical Summary Davonte He has completed 10 skilled PT visits for right shoulder pain. He is reporting no pain in the right shoulder now with daily activities and he notes his range of motion has doubled since participating in PT. He reports performing stretches and weights on his own. He objectively demonstrates improved right shoulder AROM, improved right shoulder PROM, improved right shoulder strength, and independence in a home exercise program. He will be discharged to an independent home exercise program. Plan of Care PT Services Indicated No
== END 2024-12-15 13:39 | disposition home or self-care (01) ==
LOC: CHSPT 08:47
PROVIDERS: PCP Internal Medicine; Visit Provider Internal Medicine
DX: M75.101 Unspecified rotator cuff tear or rupture of right shoulder, not specified as traumatic (principal); M25.511 Pain in right shoulder
CPT/HCPCS: 97110; 97140; 97150; 97161; 97530; 97750

== ENCOUNTER 2024-12-10 07:32 | Outpatient (CLI) | payer MEDICARE, SELFPAY ==
--- OUTSIDE RECORDS SUMMARY | 2024-12-10 07:37 | XMS_ITS | Clinical Summary ---
Author Organization [facility] Building C Address [address] [place] [address] Care Team Providers Care Toxics Program Officer Name Role Phone Kit Flores MD Unavailable Ainsley Huntley MD Unavailable Malcolm Pierce MD Unavailable Aimee Devine MD Primary Care Provider + [phone] Giacomo Garcia MD Unavailable [phone] Eliza Wei MD Unavailable [phone] Dimitri Velasquez MD Unavailable Allergies No known [...] by mouth daily 30 tablet 10 4 Active vericiguat (VERQUVO) 5 mg tablet Take [...] asso ciated with type 2 diabetes mellitus 08/25/2021 Achalasia 06/10/2020 Secondary polycythemia 05/13/2020 Atrial fibrillation 12/29/2018 Overview (12/29/2018): Added automatically from request for surgery [id number] Assessment & Plan (04/02/2024 3:22 PM CDT): Continue carvedilol and Eliquis. Assessment & Plan (01/15/2024 10:46 AM CDT): Maintain normal sinus rhythm on physical exam, continue carvedilol and Eliquis. Anticoagulation management encounter 04/13/2018 Assessment & Plan (04/13/2018 11:15 AM CDT): The patient has a WCQ4ML7-TIGr score of 4 (annualized risk of stroke 4%). I have therefore recommended that he remain anticoagulated for thromboprophylaxis. Chronic systolic heart failure 07/23/2017 Assessment & Plan (04/02/2024 3:23 PM CDT): Last EF 25-30%. Awaiting updated echo. Appears well compensated on physical exam. Continue carvedilol, Farxiga, Verquvo. Cardiomyopathy, ischemic 04/17/2017 Assessment & Plan (01/15/2024 10:46 AM CDT): Continue current guideline directed medical therapy. LBBB (left bundle branch block) 04/17/2017 ICD (implantable cardioverter-defibrillator) in place 04/10/2017 Overview (04/10/2017): Medtronic DDD Viva Quad XT CAKE WINDER-D implanted on 06/05/16 for ICM/CHF/Afib-flutter. Chronic RA and RV leads are from 07-11-15. New LV lead placed 06/05/16. Day [place] Assessment & Plan (01/13/2024 2:53 PM CDT): Severe ischemic cardiomyopathy, status post CAKE WINDER-D. The patient's device was interrogated and found [...] patient will continue to follow with his director diabetes regarding ongoing management of his heart failure. 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 Paroxysmal atrial fibrillation 04/13/2018 05/27/2019 Assessment & Plan (04/13/2018 11:15 AM CDT): The patient has minimal atrial arrhythmia as detected by his device. We will continue to follow his atrial fibrillation burden. Encounters Date Type Department Care Team Description 11/04/2024 Telephone [facility] Medical [facility] Cardiology [address] [place] [address] Kit Flores MD 10/20/2024 12:30 PM NICK SETTER Ancillary Procedure Arrhythmia Center [address] [facility] 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 05/05/2015 - Chronic obstructive pulmonar y disease (HCC) COPD AICD (automatic cardioverter/defibrillator) present 04/10/2017 Medtronic DDD Viva Quad XT CAKE WINDER-D implanted on 06/05/16 for ICM/CHF/Afib-flutter. Chronic RA and RV leads are from 07-11-15. New LV lead placed 06/05/16. [place] [facility] Atrial fibrillation (HCC) Hyperlipidemia Coronary artery disease Stroke (HCC) balance is off Kidney stones BPH (benign prostatic hyperplasia) Mitral regurgitation Myocardial infarction (HCC) NSTE [place] Cardiogenic shock (HCC) Aortic stenosis Sleep apnea [...] drink = 0.6 oz pur e alcohol) [facility] Utilities Answer Date Recorded In the past 12 months has WAY[employer], gas, oil, or water [employer] threatened to shut off services in your [...] week 02/26/2024 How often do you attend [facility] or [facility] services? Never 02/26/2024 Do you belong to any clubs o r organizations such as shinto groups, unions, fraternal or athletic groups, or [...] place to sleep or slept in a senior care (including now)? No 01/31/2024 Housing Stability Vital Sign Answer Enrique e Recorded In the last 12 months, was t here a time when you were not able to pay the mortgage or rent on time? No 02/26/2024 In the past 12 months, how m any times have you moved where you were living? 1 02/26/2024 At any time in the past [facility], were you homeless or living in a senior care (including now)? No 02/26/2024 Personal Safety Answer Date Recorded Have you ever been in or are you currently in a harmful physical or emotional relationship or is someone making you feel afraid or unsafe? Denies 02/25/2024 Sex and Gender Information Value Date Recorded Sex Assigned at Not on file Legal Sex Male 11:02 AM NICK SETTER Gender Identity Not on file Sexual Orientation [...] Pneumococcal vaccine 65+ (2 of 2 - PPSV23) 09/23/2015 07/29/2015 Zoster Vaccine (2 of 2) [...] 12/19/2023, 05/21/2020 Medical Devices Implanted Type Area Packing Machine Pilot Can Router Device Identifier Shelf Expiration Date Model / Serial / Lot Medtronic Inc Cardiac [place] Hf 2 Chamber Df4 Inline Cnctr Is4 [id number] - [id number] - [id number] Implanted:Qty: 1 on 11/26/2022 by Hong Bernstein MD at [facility] ICD Medtronic Inc [id number] 03/20/2024 [id number] / [id number] / Dodson [employer] Valve Heart 26mm Horacio 3 Transcatheter [id number] - [id number] - [id number] Implanted:Qty: 1 on 02/25/2024 by Dimitri Velasquez MD at [facility] Prosthetic Valve N/A: Aortic Valve [employer]iences 08/25/2026 [id number] / [id number] / Teleflex Medical Inc 18f Manta Vascular Closure Device 2115 - S0 - [id number] Implanted:Qty: 1 on 02/25/2024 by Dimitri Velasquez MD at [facility] Vascular Closure Device N/A: Femoral Teleflex Medical Inc 05/11/2025 2115 / 0 / [id number] Explanted Type Area Packing Machine Pilot Can Router Device Identifier Shelf Expiration Date Model / Serial / Lot Icd-06/05/2016 Implanted:2015 by Hong Bernstein MD (Quantity not on file) Explanted:Qty: 1 on 11/26/2022 by Hong Bernstein MD at [facility] ICD Chest Medtronic VIVA QUAD / / Description:Medtronic DDD Vi va Quad XT CAKE WINDER-D implanted on 06/05/16 for ICM/CHF/Afib-flutter. Chronic RA and RV leads are from 07-11-15. New LV lead placed 06/05/16. Day Gregg Card Procedures Procedure Name Priority Date/Time Associated Diagnosis Comments DEVICE CHECK - REMOTE Routine 10/20/2024 10:23 AM NICK SETTER Cardiomyopathy, ischemic EGFR Routine 02/26/2024 6:43 AM [...] DEVICE CHECK - REMOTE (10/20/2024 10:23 AM NICK SETTER) Anatomical Region Laterality Modality Other Narrative 10/27/2024 11:07 AM NICK SETTER Table formatting from the original result was [...] LAB BLOOD ORDERABLES Final Resul t [facility] [address] Department [place] [address] * CT Chest Abdomen Pelvis WO Contrast [...] mm x 36 mm x 35 mm sgmu-ho-hvwcadxxnt Sinotubular junction: 29 mm x 34 mm Distance to RCA ostium from aortic valve annulus: 15 mm Distance to left main ostium from annulus: 14 mm Deployment angle: 2 LATVIAN, 9 CAU Right coronary sinus height: 18 [...] mm x 36 mm x 35 mm mptl-cr-mixjmacvap Sinotubular junction: 29 mm x 34 mm Distance to RCA ostium from aortic valve annulus: 15 mm Distance to left main ostium from annulus: 14 mm Deployment angle: 2 LATVIAN, 9 CAU Right coronary sinus height: 18 [...] IgM Nonreactive Nonreactive [facility] Comment: Interpretive Data If HepB Core IgM Ab is reported as Equivocal, a new sample should be drawn in two weeks for testing. Current interpretive data was last revised on 19. Hep C Ab Nonreactive Nonreactive [facility] Comment: Interpretive Data Nonreactive: Antibodies to HCV [...] last revised on 2019. HepBsAg Nonreactive Nonreactive [facility] Blood 12/19/2023 4:23 AM CDT 12/19/2023 4:38 AM CDT us Eliza Wei MD LAB MICROBIOLOGY - GENE RAL ORDERABLES Final Result Performing Organization Address [facility] de Phone Number [facility] [address] Department [place] [address] * (ABNORMAL) Hemoglobin A1c (12/19/2023 3:00 AM CDT) Hgb A1C 7.9(H) 4.0 - 5.6 % Estimated Average Glucose 180 mg/dL [facility] Comment: The ADA recommends reporting an estimated Average Glucose (eAG) with all Hemoglobin A1c results using the equation derived from a study of 507 normal and diabetic adults. Minority populations were underrepresented and children were not included. (Diabetes Care 31:0308-2126, 2008). The eAG is not equivalent to a fasting glucose. Blood 12/19/2023 3:00 AM CDT 12/19/2023 3:38 AM CDT us Zak Reardon MD LAB BLOOD ORDERABLES Final Res ult Performing Organization Address [facility] Co de Phone Number [facility] [address] [place] [address] * Lipid panel (12/19/2023 3:00 AM CDT) [...] revised on 2018. Triglycerides 85 <=149 mg/dL [facility] Comment: Interpretive Data Ages < or = [...] revised on 2018. HDL 40 >=40 mg/dL [facility] Comment: Interpretive Data Ages < or = [...] on 2018. LDL, calculated 58 <=129 mg/dL [facility] Comment: Interpretive Data Ages < or = [...] revised on 2018. Non-HDL Cholesterol 75 mg/dL [facility] Comment: Interpretive Data Ages < or = [...] last revised on 2018. Chol/HDL ratio 3 [facility] Blood 12/19/2023 3:00 AM CDT 12/19/2023 3:37 AM CDT us Zak Reardon MD LAB BLOOD ORDERABLES Final Res ult [facility] [address] Department [place] [address] from Last 3 Months or Most Recently Relevant to Health Maintenance Insurance MEDICARE [facility] MEDICARE [facility] MEDICARE [facility] Advance Directives For more information, please contact: [phone] * Full Code (Latest Code Status on [...] 2:11 PM 12/18/2023 2:11 PM Care Teams Toxics Program Officer Relationship Specialty Start Date End Date Aimee Devine MD [address] [place] [address] PCP - General 05/21/20 Kit Flores MD Consulting Physician Cardiology 07/23/18 Ainsley Huntley MD [address] [place] [address] Radiation Oncologist Radiation Oncology 04/14/19 Malcolm Pierce MD [address] [place] [address] Consulting Physician Hematology and Oncology 05/16/20 Giacomo Garcia MD [address] [place] [address] Consulting Physician Cardiothoracic Surgery 01/09/24 Eliza Wei MD [address] [place] [address] In Flight Crew Member Nephrology 01/22/24 Dimitri Velasquez MD [address] [place] [address] Consulting Physician Interventional Cardiology 02/26/24
--- OUTSIDE RECORDS SUMMARY | 2024-12-10 07:37 | XMS_ITS | Referral Summary ---
Author Organization [facility] Building C Address [address] [place] [address] Care Team Providers Care Top Precipitator Operator Helper Name Role Phone Kit Flores MD Unavailable Ainsley Huntley MD Unavailable [phone] Malcolm Pierce MD Unavailable Aimee Devine MD Primary Care Provider Giacomo Garcia MD Unavailable Eliza Wei MD Unavailable Dimitri Velasquez MD Unavailable Encounters Date Type Department Care Team Description 11/04/2024 Telephone [facility] Medical [facility] Cardiology [address] [facility] [address] [place] [address] Kit Flores MD 10/20/2024 12:30 PM FINANCIAL BROKERS Ancillary Procedure Arrhythmia Center [address] [facility] [address] [facility] [facility] [address] [place] [address] ICD (implantable cardioverter-defibr illator) in place (Primary Dx); Cardiomyopathy, ischemic 10/08/2024 Telephone [facility] Cardiology [address] [place] [address] Kit Flores MD Med Management [...] (12/29/2018): Added automatically from request for surgery [id number] Assessment & Plan (04/02/2024 3:22 PM CDT): Continue carvedilol and Eliquis. Assessment & Plan (01/15/2024 10:46 AM CDT): Maintain normal sinus rhythm on physical exam, continue carvedilol and Eliquis. Anticoagulation management encounter 04/13/2018 Assessment & Plan (04/13/2018 11:15 AM CDT): The patient has a DMX0GT2-OBQc score of 4 (annualized risk of stroke [...] Overview (04/10/2017): Medtronic DDD Viva Quad XT SENIOR MARKETING DATA ANALYST-D implanted on 06/05/16 for ICM/CHF/Afib-flutter. Chronic RA and RV leads are from 07-11-15. New LV lead placed 06/05/16. Day AlfredFlores Card Assessment & Plan (01/13/2024 2:53 PM CDT): Severe ischemic cardiomyopathy, status post SENIOR MARKETING DATA ANALYST-D. The patient's device was interrogated and found [...] patient will continue to follow with his driver starting gate regarding ongoing management of his heart failure. [...] artery disease of n ative artery of ruby heart with stable angina pectoris 05/16/2015 Overview (12/27/2016): Coronary artery disease Assessment & Plan (01/15/2024 10:46 AM CDT): Recent right and left heart catheterization, continue medical management. Denies any complaints of angina. Continue aspirin, statin, beta-temitope, and Eliquis. History of mitral valve repair 05/16/2015 Overview (12/27/2016): H/O mitral valve repair Hyperlipidemia associated with type 2 diabetes m sammy 05/16/2015 Overview (12/27/2016): Hyperlipidemia LDL goal <70 [...] to follow his atrial fibrillation burden. Immunizations Immunization Administration Dates Next Due Influenza, [...] drink = 0.6 oz pur e alcohol) [facility] Utilities Answer Date Recorded In the past 12 months has e electric, gas, oil, or water company [...] often do you attend chur ch or jain services? Never 02/26/2024 Do you belong to any clubs o r organizations such as anabaptist groups, unions, fraternal or athletic groups, or [...] place to sleep or slept in a usp (including now)? No 01/31/2024 Housing Stability Vital [...] time in the [facility] were you homeless or living in a usp (including now)? No 02/26/2024 Personal Safety Answer Date Recorded Have you ever been in or are you currently in a harmful physical or emotional relationship or is someone making you feel afraid or unsafe? Denies 02/25/2024 Sex and Gender Information Value Date Recorded Sex Assigned at Not on file Legal Sex Male 11:02 AM FINANCIAL BROKERS Gender Identity Not on file Sexual Orientation [...] on file Medical Devices Implanted Type Area Tree Pruner Device Identifier Shelf Expiration Date Model / Serial / Lot Medtronic Inc Cardiac [place] Hf 2 Chamber Df4 Inline Cnctr Is4 [id number] - [id number] - [id number] Implanted:Qty: 1 on 11/26/2022 by Hong Bernstein MD at [facility] ICD Medtronic Inc [id number] 03/20/2024 [id number] / [id number] / [employer] Valve Heart 26mm Horacio 3 Transcatheter [id number] - [id number] - [id number] Implanted:Qty: 1 on 02/25/2024 by Dimitri Velasquez MD at [facility] Prosthetic Valve N/A: Aortic Valve [employer] 08/25/2026 [id number] / [id number] / Teleflex [employer] Inc 18f Manta Vascular Closure Device 2115 - S0 - [id number] Implanted:Qty: 1 on 02/25/2024 by Dimitri Velasquez MD at [facility] Vascular Closure Device N/A: Femoral Teleflex [employer] Inc 05/11/20255 / 0 / [id number] Explanted Type Area Tree Pruner Device Identifier Shelf Expiration Date Model / Serial / Lot Icd-06/05/2016 Implanted:2015 by Hong Bernstein MD (Quantity not on file) Explanted:Qty: 1 on 11/26/2022 by Hong Bernstein MD at [facility] ICD Chest Medtronic VIVA QUAD / / Description:Medtronic DDD Vi va Quad XT SENIOR MARKETING DATA ANALYST-D implanted on 06/05/16 for ICM/CHF/Afib-flutter. Chronic RA and RV leads are from 07-11-15. New LV lead placed 06/05/16. Day [facility]ois-Flores Card Procedures Procedure Name Priority Date/Time Associated Diagnosis Comments DEVICE CHECK - REMOTE Routine 10/20/2024 10:23 AM FINANCIAL BROKERS Cardiomyopathy, ischemic EGFR Routine 02/26/2024 6:43 AM [...] DEVICE CHECK - REMOTE (10/20/2024 10:23 AM FINANCIAL BROKERS) Anatomical Region Laterality Modality Other Narrative 10/27/2024 11:07 AM FINANCIAL BROKERS Table formatting from the original result was [...] ohms N/A Battery Status: 8.5 years to [facility], charge time 3.8 seconds. Episodes [...] 6:43 AM CDT 02/26/2024 7:00 AM CDT Dimitri Velasquez MD LAB BLOOD ORDERABLES Final Resul t [facility] [address] Department of Laboratories [place], [place] [id number] * CT Chest Abdomen Pelvis WO Contrast [...] mm x 36 mm x 35 mm tahw-ba-cumpintdzy Sinotubular junction: 29 mm x 34 mm Distance to RCA ostium from aortic valve annulus: 15 mm Distance to left main ostium from annulus: 14 mm Deployment angle: 2 CZECH, 9 CAU Right coronary sinus height: 18 [...] mm x 36 mm x 35 mm fgsv-bo-pmunshwsta Sinotubular junction: 29 mm x 34 mm Distance to RCA ostium from aortic valve annulus: 15 mm Distance to left main ostium from annulus: 14 mm Deployment angle: 2 CZECH, 9 CAU Right coronary sinus height: 18 [...] by: Brittany Lawson M.D. us Karly Castaneda ASSISTANT MANAGER PT IMG CT PROCEDURES Final Re sult * Hepatitis panel, acute Blood (12/19/2023 4:23 AM CDT) Hep A IgM Nonreactive Nonreactive Comment: Interpretive Data: If Hep A IgM Ab is reported as Equivocal, a new sample should be drawn in two weeks for testing. Current interpretive data was last revised on 19. Hep B core IgM Nonreactive Nonreactive [facility] Comment: Interpretive Data If HepB Core IgM Ab is reported as Equivocal, a new sample should be drawn in two weeks for testing. Current interpretive data was last revised on 19. Hep C Ab Nonreactive Nonreactive [facility] Comment: Interpretive Data Nonreactive: Antibodies [...] last revised on 2019. HepBsAg Nonreactive Nonreactive [facility] Blood 12/19/2023 4:23 AM CDT 12/19/2023 4:38 AM CDT Eliza Wei MD LAB MICROBIOLOGY - GENE RAL ORDERABLES Final Result [facility] [address] Department [place] [address] * (ABNORMAL) Hemoglobin A1c (12/19/2023 3:00 AM CDT) Hgb A1C 7.9(H) 4.0 - 5.6 % Estimated Average Glucose 180 mg/dL [facility] Comment: The ADA recommends reporting an estimated Average Glucose (eAG) with all Hemoglobin A1c results using the equation derived from a study of 507 normal and diabetic adults. Minority populations were underrepresented and children were not included. (Diabetes Care 31:8325-1986, 2008). The eAG is not equivalent to a fasting glucose. Blood 12/19/2023 3:00 AM CDT 12/19/2023 3:38 AM CDT us Zak Reardon MD LAB BLOOD ORDERABLES Final Res ult [facility] [address] Department [place] [address] * Lipid panel (12/19/2023 3:00 AM CDT) [...] revised on 2018. Triglycerides 85 <=149 mg/dL [facility] Comment: Interpretive Data Ages < [...] revised on 2018. HDL 40 >=40 mg/dL [facility] Comment: Interpretive Data Ages < [...] on 2018. LDL, calculated 58 <=129 mg/dL [facility] Comment: Interpretive Data Ages < [...] revised on 2018. Non-HDL Cholesterol 75 mg/dL [facility] Comment: Interpretive Data Ages < [...] last revised on 2018. Chol/HDL ratio 3 [facility] Blood 12/19/2023 3:00 AM CDT 12/19/2023 3:37 AM CDT us Zak Reardon MD LAB BLOOD ORDERABLES Final Res ult [facility] [address] Department [place] [address] from Last 3 Months or Most Recently Relevant to Health Maintenance Insurance MEDICARE [facility] Address: [address] [address] [place] [address] [facility] MEDICARE [facility] MEDICARE [facility] Advance Directives For more information, please contact: [phone] * Full Code (Latest Code Status on [...] 2:11 PM 12/18/2023 2:11 PM Care Teams Top Precipitator Operator Helper Relationship Specialty Start Date End Date Aimee Devine MD [address] [place] [address] PCP - General 05/21/20 Kit Flores MD Consulting Physician Cardiology 07/23/18 Ainsley Huntley MD [address] [place] [address] [id number] Radiation Oncologist Radiation Oncology 04/14/19 Malcolm Pierce MD [address] [place], [place] [id number] Consulting Physician Hematology and Oncology 05/16/20 Giacomo Garcia MD [address] [place] [address] Consulting Physician Cardiothoracic Surgery 01/09/24 Eliza Wei MD [address] [place] [address] Invasive Manager Nephrology 01/22/24 Dimitri Velasquez MD [address] [place] [address] Consulting Physician Interventional Cardiology 02/26/24
--- OUTSIDE RECORDS SUMMARY | 2024-12-10 07:37 | XMS_ITS | Encounter Summary ---
Author Organization [facility] Address [address] [facility] [address] [place] [address] Care Team Providers Care Stretching Machine Tender Frame Name Role Phone Damian Adam MD Primary Care Provider [phone] Kit Flores MD Unavailable [phone] Ainsley Huntley MD Unavailable [phone] Malcolm Pierce MD Unavailable Aimee Devine MD Primary Care Provider + [phone] Giacomo Garcia MD Unavailable [phone] Eliza Wei MD Unavailable [phone] Dimirti Velasquez MD Unavailable Encounter Details Date Type Department Care Team (Late st Contact Info) Description 01/21/2017 Orders Only Arrhythmia Center Provider, MD Estephan[address] [place] [address] Social History Tobacco Use Types Packs/Day Years Used Date Smoking Tobacco: Former Cigarettes Q uit: 09/23/2014 Comments:Smoking History Pac ks/day: 10 Cigarettes Alcohol Use Standard Drinks/Week Comments No 0 (1 standard drink = 0.6 oz pur e alcohol) Sex and Gender Information Value Date Recorded Sex Assigned at Not on file Legal Sex Male 11:02 AM PROFESSOR OF BIOLOGY Gender Identity Not on file Sexual Orientation [...] on filedocumented in this encounter Care Teams Stretching Machine Tender Frame Relationship Specialty Start Date End Date Damian Adam MD [id number] [address] PCP - General 12/31/16 05/20/20 Aimee Devine MD [address] [place] [address] PCP - General 05/21/20 Kit Flores MD [id number] [address] Consulting Physician Cardiology 07/23/18 Ainsley Huntley MD [address] [place], [place] [id number] Radiation Oncologist Radiation Oncology 04/14/19 Malcolm Pierce MD [address] [place] [address] Consulting Physician Hematology and Oncology 05/16/20 Giacomo Garcia MD [address] [place], [place] [id number] Consulting Physician Cardiothoracic Surgery 01/09/24 Eliza Wei MD [address] [place] [address] Psychiatric Security Nurse Nephrology 01/22/24 Dimitri Velasquez MD [address] [place] [address] Consulting Physician Interventional Cardiology 02/26/24 documented as of this encounter
--- OUTSIDE RECORDS SUMMARY | 2024-12-10 07:37 | XMS_ITS | Encounter Summary ---
Author Organization [facility] Address [address] [facility] [address] [place] [address] Care Team Providers Care Burning Plant Operator Name Role Phone Damian Adam MD Primary Care Provider [phone] Della Beckett MD Primary Care Provider [phone] Kit Flores MD Unavailable [phone] Ainsley Huntley MD Unavailable [phone] Malcolm Pierce MD Unavailable Aimee Devine MD Primary Care Provider + [phone] Giacomo Garcia MD Unavailable [phone] Eliza Wei MD Unavailable [phone] Dimitri Velasquez MD Unavailable Encounter Details Date Type Department Care Team (Late st Contact Info) Description 10/22/2016 Orders Only Arrhythmia Center Provider, MD Estephania [facility] [place] [address] Social History Tobacco Use Types Packs/Day Years Used Date Smoking Tobacco: Former Cigarettes Q uit: 09/23/2014 Comments:Smoking History Pac ks/day: 10 Cigarettes Alcohol Use Standard Drinks/Week Comments No 0 (1 standard drink = 0.6 oz pur e alcohol) Sex and Gender Information Value Date Recorded Sex Assigned at Not on file 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 Gender Identity Not on file Sexual Orientation [...] on filedocumented in this encounter Care Teams Burning Plant Operator Relationship Specialty Start Date End Date Damian Adam MD [address] [place] [address] PCP - General 12/31/16 05/20/20 Della Beckett MD [address] [phone] [place], [place] [id number] PCP - General 06/18/16 12/30/16 Aimee Devine MD [address] [place], [place] [id number] PCP - General 05/21/20 Kit Flores MD [address] [phone] [place], [place] [id number] Consulting Physician Cardiology 07/23/18 Ainsley Huntley MD [address] [facility] [place] [address] Radiation Oncologist Radiation Oncology 04/14/19 Malcolm Pierce MD [address] [place] [address] Consulting Physician Hematology and Oncology 05/16/20 Giacomo Garcia MD [address] [place] [address] Consulting Physician Cardiothoracic Surgery 01/09/24 Eliza Wei MD [address] [place] [address] Licensed Physical Therapist Nephrology 01/22/24 Dimitri Velasquez MD [address] [place] [address] Consulting Physician Interventional Cardiology 02/26/24 documented as of this encounter
--- OUTSIDE RECORDS SUMMARY | 2024-12-10 07:38 | XMS_ITS | Encounter Summary ---
Author Organization [facility] Address [address] [place] [address] Care Team Providers Care Therapeutic Recreation Assistant Name Role Phone Damian Adam MD Primary Care Provider [phone] Kit Flores MD Unavailable [phone] Ainsley Huntley MD Unavailable [phone] Malcolm Pierce MD Unavailable Aimee Devine MD Primary Care Provider + [phone] Giacomo Garcia MD Unavailable [phone] Eliza Wei MD Unavailable [phone] Dimitri Velasquez MD Unavailable Encounter Details Date Type Department Care Team (Late st Contact Info) Description 05/19/2020 Telephone [facility] - [facility] [address] [place] [address] Transcribed Order, Provider Social History Tobacco Use Types Packs/Day Years Used Date Smoking Tobacco: Former Smokeless Tobacco: Never Comments:Smoking History Pac ks/day: 10 Cigarettes Alcohol Use Standard Drinks/Week Comments No 0 (1 standard drink = 0.6 oz pur e alcohol) Sex and Gender Information Value Date Recorded Sex Assigned at Not on file 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 Gender Identity Not on file Sexual Orientation Not on file documented as of this encounter Plan of Treatment Not on file documented as of this encounter Visit Diagnoses Not on filedocumented in this encounter Care Teams Therapeutic Recreation Assistant Relationship Specialty Start Date End Date Damian Adam MD [address] [address] PCP - General 12/31/16 05/20/20 Aimee Devine MD [address] [place] [address] PCP - General 05/21/20 Kit Flores MD [address] [address] Consulting Physician Cardiology 07/23/18 Ainsley Huntley MD [address] [place] [address] Radiation Oncologist Radiation Oncology 04/14/19 Malcolm Pierce MD [address] [place], [place] [id number] Consulting Physician Hematology and Oncology 05/16/20 Giacomo Garcia MD [address] [place] [address] Consulting Physician Cardiothoracic Surgery 01/09/24 Eliza Wei MD [address] [place] [address] Network Programmer Nephrology 01/22/24 Dimitri Velasquez MD [address] [place] [address] Consulting Physician Interventional Cardiology 02/26/24 documented as of this encounter
[2024-12-10 07:42] LABS: Basophils Absolute Auto 0.02 K/mm3 (0.00-0.10); Basophils Percent Auto 0.4 % (0.0-1.0); Eosinophils Absolute Auto 0.14 K/mm3 (0.02-0.50); Eosinophils Percent Auto 2.5 % (1.0-6.0); Hematocrit 49.3 % (37.0-46.0); Hemoglobin 16.2 g/dL (12.4-15.3); Immature Granulocyte Absolute 0.03 K/mm3 (0.00-0.00); Immature Granulocyte Percent A 0.5 % (0.0-0.0); Lymphocytes Absolute Auto 1.81 K/mm3 (1.10-4.50); Lymphocytes Percent Auto 32.7 % (18.0-42.0); Mean Corpuscular HGB Conc 32.9 g/dL (32-36); Mean Corpuscular Volume 100.4 fL (78.0-102.0); Mean Platelet Volume 9.7 fl (8.7-11.0); Monocytes Absolute Auto 0.61 K/mm3 (0.10-0.90); Neutrophils Absolute Auto 2.92 K/mm3 (1.70-7.20); Neutrophils Percent Auto 52.9 % (50.0-70.0); Platelet Count Result 144 K/mm3 (150-420); Red Blood Count 4.91 M/mm3 (4.70-6.10); Red Cell Distribution Width 13.7 % (11.6-14.4); White Blood Count 5.5 K/mm3 (4.8-10.8)
[2024-12-10 07:44] LABS: Add Urine Microscopic? YES; Appearance Urine Clear (Clear); Bilirubin Urine Negative (Negative); Blood Urine 1+ (Negative); Color Urine Light Yellow (Yellow); Glucose Urine UA 3+ (Negative); Ketones Urine Negative (Negative); Leukocyte Esterase Ur Negative LEU/UL (Negative); Nitrate Urine Negative (Negative); Protein Urine 2+ (Negative); Specific Grav Ur 1.015 (1.010-1.020); Urobilinogen Urine 0.2 mg/dL (0.2-1.0)
[2024-12-10 07:51] LABS: Hemoglobin A1C 6.8 % (<5.7)
[2024-12-10 08:00] LABS: Bacteria Urine None seen /hpf; Mucus Urine Rare /lpf; RBC Urine 0-2 /hpf (0-2); WBC Urine None seen /hpf (0-3)
[2024-12-10 08:35] LABS: Alanine Aminotransferase 50 U/L (16-63); Albumin Level 4.2 g/dL (3.4-5.0); Alkaline Phosphatase 110 U/L (46-116); Aspartate Amino Transferase 21 U/L (15-37); Bilirubin,Total 0.6 mg/dL (0.00-1.00); Blood Urea Nitrogen 61 mg/dL (7-18); Calcium 9.3 mg/dL (8.5-10.1); Carbon Dioxide 34 mmol/L (21-32); Estimated Glomerular Filt Rate 22; Ferritin 177 ng/mL (26-388); Glucose 151 mg/dL (70-99); Iron 133 ug/dL (65-175); Total Protein 7.9 g/dL (6.4-8.2); Uric Acid 5.2 mg/dL (3.5-7.2)
[2024-12-10 08:56] LABS: Anion Gap 8 mmol/L (4-12); Chloride 103 mmol/L (98-108); Osmolality Calculated 320 mOsm/kg (285-295); Potassium 4.1 mmol/L (3.5-5.1); Sodium 145 mmol/L (136-145)
== END 2024-12-10 07:33 | disposition home or self-care (01) ==
LOC: CHSLAB 07:33
PROVIDERS: PCP Internal Medicine; Visit Provider Internal Medicine
DX: E79.0 Hyperuricemia without signs of inflammatory arthritis and tophaceous disease (principal); E11.65 Type 2 diabetes mellitus with hyperglycemia; D64.9 Anemia, unspecified
CPT/HCPCS: 36415; 80053; 81001; 82728; 83036; 83540; 84550; 85025

== ENCOUNTER 2025-01-25 08:49 | Outpatient (CLI) | payer MEDICARE, SELFPAY ==
[2025-01-25 09:13] LABS: Basophils Absolute Auto 0.03 K/mm3 (0.00-0.10); Basophils Percent Auto 0.5 % (0.0-1.0); Eosinophils Absolute Auto 0.16 K/mm3 (0.02-0.50); Eosinophils Percent Auto 2.5 % (1.0-6.0); Hematocrit 49.3 % (37.0-46.0); Immature Granulocyte Absolute 0.04 K/mm3 (0.00-0.00); Immature Granulocyte Percent A 0.6 % (0.0-0.0); Lymphocytes Absolute Auto 1.23 K/mm3 (1.10-4.50); Mean Corpuscular HGB Conc 32.5 g/dL (32-36); Mean Corpuscular Hemoglobin 32.8 pg (27.0-31.0); Mean Platelet Volume 10.7 fl (8.7-11.0); Monocytes Absolute Auto 0.69 K/mm3 (0.10-0.90); Monocytes Percent Auto 10.6 % (2.0-11.0); Neutrophils Absolute Auto 4.33 K/mm3 (1.70-7.20); Neutrophils Percent Auto 66.8 % (50.0-70.0); Platelet Count Result 153 K/mm3 (150-420); Red Blood Count 4.88 M/mm3 (4.70-6.10); Red Cell Distribution Width 13.3 % (11.6-14.4); White Blood Count 6.5 K/mm3 (4.8-10.8)
--- OUTSIDE RECORDS SUMMARY | 2025-01-25 09:15 | XMS_ITS | Clinical Summary ---
Author Organization [facility] Building C Address [address] [place] [address] Care Team Providers Care Wood Experimental Mechanic Name Role Phone Kit Flores MD Unavailable [phone] Ainsley Huntley MD Unavailable [phone] Malcolm Pierce MD Unavailable Aimee Devine MD Primary Care Provider [phone] Giacomo Garcia MD Unavailable Eliza Wei MD Unavailable [phone] Dimitri Velasquez MD Unavailable Allergies No known [...] times a week 12 capsule 1 4 Active furosemide (LASIX) 40 mg tablet Take 1 tablet (40 mg total) by mouth daily 30 tablet 1 4 Active peg 400-propylene glycol (SYSTANE) 0.4-0.3 % [...] (12/29/2018): Added automatically from request for surgery [id number] Assessment & Plan (01/14/2025 11:24 AM CDT): Persistent atrial fibrillation, rendered asymptomatic by way of pacing / AV node ablation. I will not make any changes at this time. The patient's device was interrogated and found to be functioning appropriately. No substantial changes to programming were made. The patient is [facility] in the [facility], and we will continue to follow with remote monitoring when possible, and in-office device checks when necessary. The patient has a [id number] score of 5 (annualized risk of stroke 6.7%). I have therefore recommended continuation of anticoagulation. Assessment & Plan (04/02/2024 3:22 PM CDT): Continue carvedilol and Eliquis. Assessment & Plan (01/15/2024 10:46 AM CDT): Maintain normal sinus rhythm on physical exam, continue carvedilol and Eliquis. Anticoagulation management encounter 04/13/2018 Assessment & Plan (04/13/2018 11:15 AM CDT): The patient has a PFS2KW4-ZAKv score of 4 (annualized risk of stroke 4%). I have therefore recommended that he remain anticoagulated for thromboprophylaxis. Chronic systolic heart failure 07/23/2017 Assessment & Plan (04/02/2024 3:23 PM CDT): Last EF 25-30%. Awaiting updated echo. Appears well compensated on physical exam. Continue carvedilol, Farxiga, Verquvo. Cardiomyopathy, ischemic 04/17/2017 Assessment & Plan (01/14/2025 11:24 AM CDT): Severe ischemic cardiomyopathy, left bundle branch block, status post PHOTOGRAPHIC PROCESSOR-D. LV ejection fraction last estimated at 40%, which is improved compared to previous estimates. He is status post AV node ablation, and is 100% biventricular paced. The patient's device was interrogated and found to be functioning appropriately. No substantial changes to programming were made. The patient is enrolled in the [facility], and we will continue to follow with remote monitoring when possible, and in-office device checks when necessary. Assessment & Plan (01/15/2024 10:46 AM CDT): Continue current guideline directed medical therapy. LBBB (left bundle branch block) 04/17/2017 ICD (implantable cardioverter-defibrillator) in place 04/10/2017 Overview (04/10/2017): Medtronic DDD Viva Quad XT PHOTOGRAPHIC PROCESSOR-D implanted on 06/05/16 for ICM/CHF/Afib-flutter. Chronic RA and RV leads are from 07-11-15. New LV lead placed 06/05/16. Day Dubois-Flores Card Assessment & Plan (01/13/2024 2:53 PM CDT): Severe ischemic cardiomyopathy, status post PHOTOGRAPHIC PROCESSOR-D. The patient's device was interrogated and found [...] patient will continue to follow with his golf starter and ranger regarding ongoing management of his heart failure. [...] artery disease of n ative artery of [place] heart with stable angina pectoris 05/16/2015 Overview (12/27/2016): Coronary artery disease Assessment & Plan (01/15/2024 10:46 AM CDT): Recent right and left heart catheterization, continue medical management. Denies any complaints of angina. Continue aspirin, statin, beta-temitope, and Eliquis. History of mitral valve repair 05/16/2015 Overview (12/27/2016): H/O mitral valve repair Hyperlipidemia associated with type 2 diabetes m leandroitus 05/16/2015 Overview (12/27/2016): Hyperlipidemia LDL goal <70 [...] Encounters Date Type Department Care Team Description 01/14/2025 10:45 AM CDT Office Visit [facility] [address] [place] [address] [address] [address] Hong Bernstein MD Cardiomyopathy, ischemic (Primary Dx); ICD (implantable cardioverter-defibri llator) in place; Persistent atrial fibrillation (HCC); LBBB (left bundle branch block) 01/14/2025 10:30 AM CDT Ancillary Procedure [facility] [address] [place] [address] [address] [address] Cardiomyopathy, ischemic; ICD (implantable cardioverter-defibri llator) in place; Paroxysmal atrial fibrillation (HCC) 11/04/2024 Telephone [facility] Cardiology [address] [facility] [place] [address] Kit Flores MD from Last 3 Months Immunizations Immunization Administration [...] 05/05/2015 - Hypertension Hypertension Osteoarthritis Osteoarthritis; Comments: ARROYO 05/05/2015 - Chronic obstructive pulmonar y disease (HCC) COPD AICD (automatic cardioverter/defibrillator) present 04/10/2017 Medtronic DDD Viva Quad XT PHOTOGRAPHIC PROCESSOR-D implanted on 06/05/16 for ICM/CHF/Afib-flutter. Chronic RA and RV leads are from 07-11-15. New LV lead placed 06/05/16. Day Dubois Atrial fibrillation (HCC) Hyperlipidemia Coronary artery disease Stroke (HCC) balance is off Kidney stones BPH (benign prostatic hyperplasia) Mitral regurgitation Myocardial infarction (HCC) NSTE [place] Cardiogenic shock (HCC) Aortic stenosis Sleep apnea [...] 0.6 oz pur e alcohol) [facility] Utilities Answer Date Recorded In the past [...] often do you attend chur ch or evangelical services? Never 02/26/2024 Do you belong to any clubs o r organizations such as yarsanism groups, unions, fraternal or athletic groups, or [...] in a correction (including now)? No 01/31/2024 PHQ-9 Answer Date Recorded Patient Health Questionnaire-9 Score 0 01/06/2024 Housing Stability Vital Sign Answer Enrique e Recorded In the last 12 months, was t here a time when you were not able to pay the mortgage or rent on time? No 02/26/2024 In the past 12 months, how m any times have you moved where you were living? 1 02/26/2024 At any time in the past 12 m [facility], were you homeless or living in a correction (including now)? No 02/26/2024 Personal Safety Answer Date Recorded Have you ever been in or are you currently in a harmful physical or emotional relationship or is someone making you feel afraid or unsafe? 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 Gender Identity Not on file Sexual Orientation Not on file Obstetrics History Last Filed Vital Signs Vital Sign Reading Time Taken Comments Blood Pressure 118/62 01/14/2025 10:41 AM CDT Pulse 90 01/14/2025 10:41 AM CDT Temperature 36.6 C (97.9 F) 02/26/2024 12:04 PM CDT Respiratory Rate 18 02/26/2024 12:04 PM CDT Oxygen Saturation 99% 04/02/2024 2:53 PM CDT Inhaled Oxygen Concentration - - Weight 96.2 kg (212 lb) 01/14/2025 10:41 AM CDT Height 177.8 cm (5' 10 ) 01/14/2025 10:41 AM CDT Body Mass Index 30.42 01/14/2025 10:41 AM CDT Plan of Treatment Health Maintenance Due [...] - 2023-2 5 season) 2024 11/16/2020, 10/26/2020 Hemoglobin A1C 06/20/2024 12/19/2023 Lipid Panel 12/18/2024 12/19/2023, 07/24, 05/31/2021, Additional history exists Fall Risk Assessment 02/25/2025 02/26/2024 eGFR 02/25/2025 02/26/2024, 0612/2023, 02/11/2024, Additional history exists Influenza Vaccine (Season Ended) 2025 09/22/20, 07/29/2015 Hepatitis C Screening Completed 12/19/2023 Abdominal Aortic Aneurysm (A AA) Screen Completed 01/22/2024, 12/19/2023, 05/21/2020 Medical Devices Implanted Type Area Foundation Director Device Identifier Shelf Expiration Date Model / Serial / Lot Secucloudtronic Inc Cardiac [place] Hf 2 Chamber Df4 Inline Cnctr Is4 [id number] - [id number] - [id number] Implanted:Qty: 1 on 11/26/2022 by Hong Bernstein MD at [facility] ICD Medtronic Inc [id number] 03/20/2024 [id number] / [id number] / [employer] Valve Heart 26mm Horacio 3 Transcatheter [id number] - [id number] - [id number] Implanted:Qty: 1 on 02/25/2024 by Dimitri Velasquez MD at [facility] Prosthetic Valve N/A: Aortic Valve [employer] 08/25/2026 [id number] / [id number] / Teleflex [employer] Inc 18f Manta Vascular Closure Device 2115 - S0 - [id number] Implanted:Qty: 1 on 02/25/2024 by Dimitri Velasquez MD at [facility] Vascular Closure Device N/A: Femoral Teleflex Medical Inc 05/11/20255 / 0 / [id number] Explanted Type Area Foundation Director Device Identifier Shelf Expiration Date Model / Serial / Lot Icd-06/05/2016 Implanted:2015 by Hong Bernstein MD (Quantity not on file) Explanted:Qty: 1 on 11/26/2022 by Hong Bernstein MD at [facility] ICD Chest Medtronic VIVA QUAD / / Description:Medtronic DDD Vi va Quad XT PHOTOGRAPHIC PROCESSOR-D implanted on 06/05/16 for ICM/CHF/Afib-flutter. Chronic RA and RV leads are from 07-11-15. New LV lead placed 06/05/16. Day Dubois-Mark Card Procedures Procedure Name Priority Date/Time Associated Diagnosis Comments ECG 12-LEAD Routine 01/14/2025 10:42 AM CDT Cardiomyopathy, ischemic ICD (implantable cardioverter-defibr illator) in place Persistent atrial fibrillation (HCC) DEVICE CHECK - IN OFFICE Routine 01/14/2025 10:22 AM CDT Cardiomyopathy, ischemic ICD (implantable cardioverter-defibr illator) in place Paroxysmal atrial fibrillation (HCC) EGFR Routine 02/26/2024 6:[address] CHEST ABDOMEN PELVIS WO CONTRAST Schedule Routine, Read Routine (OP Routine) 01/22/2024 9:45 AM CDT Nonrheumatic aortic valve stenosis HEPATITIS PANEL, ACUTE Routine 12/19/2023 4:23 AM CDT HEMOGLOBIN A1C Routine 12/19/2023 3:00 AM CDT LIPID PANEL Routine 12/19/2023 3:00 AM CDT from Last 3 Months or Most Recently Relevant to Health Maintenance Results * ECG 12 lead (01/14/2025 10:42 AM CDT) us Hong Bernstein MD ECG ORDERABLES Final R esult * DEVICE CHECK - IN OFFICE (01/14/2025 10:22 AM CDT) Anatomical Region Laterality Modality Other Narrative 01/17/2025 1:48 PM CDT Table formatting from the original result was not included. BiV ICD CHECK (IN OFFICE) Patient ID: Val Noble is a 79 y.o. male. This patient received a Medtronic BiV ICD. They had a routine in office device interrogation on 01/14/25. Device implant indications: Ischemic cardiomyopathy, CHF, a flutter Interrogation of the patient's device demonstrates the following: Presenting EGM: Bi V paced @ 92 bpm Underlying rhythm: Paced at 40 ppm Original Device Settings Right Ventricle Left Ventricle Sensitivity (mV) 0.45 mV N/a mV Pacing Outputs 1.5 V @ 0.4 ms 1.5 V @ 0.6 ms Testing Measurements Right Ventricle Left Ventricle Sensitivity (mV) 7 mV Not done mV Impedence (Ohms) 380 ohms 722 ohms Pace Threshold 0.625 V @ 0.4 ms 0.875 V @ 0.6 ms Pacing % 99.8 % 99.8 % HV Lead Impedance 60 ohms N/A Battery Status: 8 years to [facility], charge time 3.8 seconds. Episodes last 90 days/Comments: 1 episode classified as nonsustained VT on 09/19. EGM shows nonsustained VT for 2 seconds at 190 beats per minute. NORMAL DEVICE FUNCTION PROGRAMMED MEDICATIONS: Anti-coagulant(s): Aspirin 81 mg, Eliquis 5 mg twice a day Anti-arrhythmic(s): Coreg 3.125 mg twice a day PLAN: 1) Medtronic BiV ICD evaluation 2) Medtronic remote transmission scheduled in 3 months. 3) Programming appropriate for device settings Lisa Martinez RN us Hong Bernstein MD CV CARDIAC [...] LAB BLOOD ORDERABLES Final Resul t [facility] [address] Department of Laboratories [place], [place] [id number] * CT Chest Abdomen Pelvis WO Contrast [...] mm x 36 mm x 35 mm aobj-zn-xrpdrqrrbe Sinotubular junction: 29 mm x 34 mm Distance to RCA ostium from aortic valve annulus: 15 mm Distance to left main ostium from annulus: 14 mm Deployment angle: 2 ARMENIAN, 9 CAU Right coronary sinus height: 18 [...] mm x 36 mm x 35 mm geiu-wv-rhyxbepfbz Sinotubular junction: 29 mm x 34 mm Distance to RCA ostium from aortic valve annulus: 15 mm Distance to left main ostium from annulus: 14 mm Deployment angle: 2 ARMENIAN, 9 CAU Right coronary sinus height: 18 [...] Hep B core IgM Nonreactive Nonreactive [facility] Comment: Interpretive Data If HepB Core IgM Ab is reported as Equivocal, a new sample should be drawn in two weeks for testing. Current interpretive data was last revised on 19. Hep C Ab Nonreactive Nonreactive [facility] Comment: Interpretive Data Nonreactive: Antibodies to [...] last revised on 2019. HepBsAg Nonreactive Nonreactive [facility] Blood 12/19/2023 4:23 AM CDT 12/19/2023 4:38 AM CDT us Eliza Wei MD LAB MICROBIOLOGY - GENE RAL ORDERABLES Final Result Performing Organization Address [facility] de Phone Number [facility] [address] [place] [address] * (ABNORMAL) Hemoglobin A1c (12/19/2023 3:00 AM CDT) Hgb A1C 7.9(H) 4.0 - 5.6 % Estimated Average Glucose 180 mg/dL [facility] Comment: The ADA recommends reporting an estimated Average Glucose (eAG) with all Hemoglobin A1c results using the equation derived from a study of 507 normal and diabetic adults. Minority populations were underrepresented and children were not included. (Diabetes Care 31:9738-0703, 2008). The eAG is not equivalent to a fasting glucose. Blood 12/19/2023 3:00 AM CDT 12/19/2023 3:38 AM CDT us Zak Reardon MD LAB BLOOD ORDERABLES Final Res ult Performing Organization Address [facility] Co de Phone Number [facility] [address] [place] [address] * Lipid panel (12/19/2023 3:00 AM CDT) [...] revised on 2018. Triglycerides 85 <=149 mg/dL [facility] Comment: Interpretive Data Ages < or [...] revised on 2018. HDL 40 >=40 mg/dL [facility] Comment: Interpretive Data Ages < or [...] on 2018. LDL, calculated 58 <=129 mg/dL [facility] Comment: Interpretive Data Ages < or [...] revised on 2018. Non-HDL Cholesterol 75 mg/dL [facility] Comment: Interpretive Data Ages < or [...] revised on 2018. Chol/HDL ratio 3 [facility] Blood 12/19/2023 3:0 0 AM CDT 12/19/2023 3:37 AM CDT us Zak Reardon MD LAB BLOOD ORDERABLES Final Res ult [facility] [address] Department [place] [address] from Last 3 Months or Most Recently Relevant to Health Maintenance Insurance [facility]ICARE [facility] MEDICARE [facility] MEDICARE AARP Advance Directives For more information, please contact: [phone] * Full Code (Latest Code Status on [...] 2:11 PM 12/18/2023 2:11 PM Care Teams Wood Experimental Mechanic Relationship Specialty Start Date End Date Aimee Devine MD [address] [place], [place] [address] PCP - General 05/21/20 Kit Flores MD Consulting Physician Cardiology 07/23/18 Ainsley Huntley MD [address] [place] [id number] Radiation Oncologist Radiation Oncology 04/14/19 Malcolm Pierce MD [address] [place] [address] Consulting Physician Hematology and Oncology 05/16/20 Giacomo Garcia MD [address] [place], [place] [address] Consulting Physician Cardiothoracic Surgery 01/09/24 Eliza Wei MD [address] [place] [address] Mine Superintendent Nephrology 01/22/24 Dimitri Velasquez MD [address] [place] [address] Consulting Physician Interventional Cardiology 02/26/24
--- OUTSIDE RECORDS SUMMARY | 2025-01-25 09:15 | XMS_ITS | Clinical Summary ---
Author Organization [facility] Address [address] [facility], [place] [address] Phone Care Team Providers Care Surgical Services Director Name Role Phone Chaparro Mathias Tiera DPM Unavailable [phone] Aimee Devine MD Primary Care Provider [phone] Allergies No known active allergies Medications bisacodyl [...] age to complete this topic Insurance MEDICARE [facility] Care Teams Surgical Services Director Relationship Specialty Start Date End Date Aimee Devine MD [address] [place] [address] PCP - General Internal Medicine 10/30/19 Chaparro Mathias DPM Podiatry 08/15/15
--- OUTSIDE RECORDS SUMMARY | 2025-01-25 09:15 | XMS_ITS | Encounter Summary ---
Author Organization [facility] Address [address] [facility] [address] [place] [address] Care Team Providers Care Diversified Crops Farmer Name Role Phone Damian Adam MD Primary Care Provider [phone] Kit Flores MD Unavailable [phone] Ainsley Huntley MD Unavailable [phone] Malcolm Pierce MD Unavailable Aimee Devine MD Primary Care Provider [phone] Giacomo Garcia MD Unavailable [phone] Eliza Wei MD Unavailable [phone] Dimitri Velasquez MD Unavailable Encounter Details Date Type Department Care Team (Late st Contact Info) Description 01/21/2017 Orders Only [facility] Provider, MD Estephania [address] [place] [address] Social History Tobacco Use Types Packs/Day Years Used Date Smoking Tobacco: Former Cigarettes Q uit: 09/23/2014 Comments:Smoking History Pac ks/day: 10 Cigarettes Alcohol Use Standard Drinks/Week Comments No 0 (1 standard drink = 0.6 oz pur e alcohol) Sex and Gender Information Value Date Recorded Sex Assigned at Not on file 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 Gender Identity Not on file Sexual [...] on filedocumented in this encounter Care Teams Diversified Crops Farmer Relationship Specialty Start Date End Date Damian Adam MD [address] [address] PCP - General 12/31/16 05/20/20 Aimee Devine MD [address] [place] [address] PCP - General 05/21/20 Kit Flores MD [address] [address] Consulting Physician Cardiology 07/23/18 Ainsley Huntley MD [address] [place], [place] [id number] Radiation Oncologist Radiation Oncology 04/14/19 Malcolm Pierce MD [address] [place] [address] Consulting Physician Hematology and Oncology 05/16/20 Giacomo Garcia MD [address] [place], [place] [address] Consulting Physician Cardiothoracic Surgery 01/09/24 Eliza Wei MD [address] [place] [address] Policy Loan Calculator Nephrology 01/22/24 Dimitri Velasquez MD [address] [place] [address] Consulting Physician Interventional Cardiology 02/26/24 documented as of this encounter
--- OUTSIDE RECORDS SUMMARY | 2025-01-25 09:15 | XMS_ITS | Encounter Summary ---
Author Organization [facility] Address [address] [facility] [address] [place] [address] Care Team Providers Care Folder Hand Name Role Phone Damian Adam MD Primary Care Provider [phone] Della Beckett MD Primary Care Provider [phone] Kit Flores MD Unavailable [phone] Ainsley Huntley MD Unavailable [phone] Malcolm Pierce MD Unavailable Aimee Devine MD Primary Care Provider + [phone] Giacomo Garcia MD Unavailable [phone] Eliza Wei MD Unavailable [phone] Dimitri Velasquez MD Unavailable Encounter Details Date Type Department Care Team (Late st Contact Info) Description 10/22/2016 Orders Only [facility] Provider, MD [place] [address] Social History Tobacco Use Types Packs/Day Years Used Date Smoking Tobacco: Former Cigarettes Q uit: 09/23/2014 Comments:Smoking History Pac ks/day: 10 Cigarettes Alcohol Use Standard Drinks/Week Comments No 0 (1 standard drink = 0.6 oz pur e alcohol) Sex and Gender Information Value Date Recorded Sex Assigned at Not on file 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 Gender Identity Not on file Sexual Orientation [...] on filedocumented in this encounter Care Teams Folder Hand Relationship Specialty Start Date End Date Damian Adam MD [address] [place] [address] PCP - General 12/31/16 05/20/20 Della Beckett MD [address] [phone]) [phone] [place], [place] [id number] PCP - General 06/18/16 12/30/16 Aimee Devine MD [address] [place], [place] [address] PCP - General 05/21/20 Kit Flores MD [address] [phone] [place], [place] [id number] Consulting Physician Cardiology 07/23/18 Ainsley Huntley MD [address] [place] [address] Radiation Oncologist Radiation Oncology 04/14/19 Malcolm iPerce MD [address] [place] [address] Consulting Physician Hematology and Oncology 05/16/20 Giacomo Garcia MD [address] [place] [address] Consulting Physician Cardiothoracic Surgery 01/09/24 Eliza Wei MD [address] [place] [address] Transportation Analyst Nephrology 01/22/24 Dimitri Velasquez MD [address] [place] [address] Consulting Physician Interventional Cardiology 02/26/24 documented as of this encounter
--- OUTSIDE RECORDS SUMMARY | 2025-01-25 09:15 | XMS_ITS | Encounter Summary ---
Author Organization [facility] Address [address] [place] [address] Care Team Providers Care Internal Combustion Engine Inspector Name Role Phone Damian Adam MD Primary Care Provider [phone] Kit Flores MD Unavailable [phone] Ainsley Huntley MD Unavailable [phone] Malcolm Pierce MD Unavailable Aimee Devine MD Primary Care Provider [phone] Giacomo Garcia MD Unavailable [phone] Eliza Wei MD Unavailable [phone] Dimitri Velasquez MD Unavailable Encounter Details Date Type Department Care Team (Late st Contact Info) Description 05/19/2020 Telephone [facility] [address] [place] [address] Transcribed Order, Provider Social History Tobacco Use Types Packs/Day Years Used Date Smoking Tobacco: Former Smokeless Tobacco: Never Comments:Smoking History Pac ks/day: 10 Cigarettes Alcohol Use Standard Drinks/Week Comments No 0 (1 standard drink = 0.6 oz pur e alcohol) Sex and Gender Information Value Date Recorded Sex Assigned at Not on file 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 Gender Identity Not on file Sexual Orientation Not on file documented as of this encounter Plan of Treatment Not on file documented as of this encounter Visit Diagnoses Not on filedocumented in this encounter Care Teams Internal Combustion Engine Inspector Relationship Specialty Start Date End Date Damian Adam MD [address] [address] PCP - General 12/31/16 05/20/20 Aimee Devine MD [address] [place] [address] PCP - General 05/21/20 Kit Flores MD [address] [address] Consulting Physician Cardiology 07/23/18 Ainsley Huntley MD [address] [place] [address] Radiation Oncologist Radiation Oncology 04/14/19 Malcolm Pierce MD [address] [place], [place] [address] Consulting Physician Hematology and Oncology 05/16/20 Giacomo Garcia MD [address] [place] [address] Consulting Physician Cardiothoracic Surgery 01/09/24 Eliza Wei MD [address] [place] [address] Multimedia Coordinator Nephrology 01/22/24 Dimitri Velasquez MD [address] [place] [address] Consulting Physician Interventional Cardiology 02/26/24 documented as of this encounter
--- OUTSIDE RECORDS SUMMARY | 2025-01-25 09:15 | XMS_ITS | Encounter Summary ---
Author Organization [facility] Address [address] [place] [address] Phone Care Team Providers Care Bar Machine Operator Production Name Role Phone Chaparro Mathias DPM Unavailable [phone] Aimee Devine MD Primary Care Provider [phone] Reason for Visit * Reason Comments Medication Refill Encounter Details Date Type Department Care Team (Late st Contact Info) Description 08/06/2021 Refill [facility] - Neurology [facility] [address] [place] [phone] Ebenezer Gutierrez MD [address] [place] [address] Medication Refill Social History Tobacco [...] Dept 01/26/21 Office Visit Ebenezer Gutierrez MD [facility] Neurology [place] [address] 10/31/20 Office Visit Ebenezer Gutierrez MD [facility] Neurology [place] Showing recent visits within past 365 days and meeting all other requirements Future Appointments No visits were found meeting these conditions. Showing future appointments within next 90 days and meeting all other requirements OMER SUPPLY COORDINATOR documented in this encounter Plan of Treatment Not on file documented as of this encounter Visit Diagnoses Not on filedocumented in this encounter Care Teams Bar Machine Operator Production Relationship Specialty Start Date End Date Aimee Devine MD [address] [place] [address] PCP - General Internal Medicine 10/30/19 Chaparro Mathias DPM Podiatry 08/15/15 documented as of this encounter
--- OUTSIDE RECORDS SUMMARY | 2025-01-25 09:15 | XMS_ITS | Encounter Summary ---
Author Organization [facility] Address [address] [address] Phone Care Team Providers Care Finish Molder Name Role Phone Chaparro Mathias DPM Unavailable [phone] Aimee Devine MD Primary Care Provider [phone] Reason for Visit * Reason Comments Medication Refill Encounter Details Date Type Department Care Team (Late st Contact Info) Description 02/16/2020 [facility]ill [facility] [address]1 [facility] [place] [phone] Ebenezer Gutierrez MD [address] [place] [address] Medication Refill Social History Tobacco [...] on filedocumented in this encounter Care Teams Finish Molder Relationship Specialty Start Date End Date Aimee Devine MD [address] [place], [place] [id number] PCP - General Internal Medicine 10/30/19 Chaparro Mathias DPM Podiatry 08/15/15 documented as of this encounter
--- OUTSIDE RECORDS SUMMARY | 2025-01-25 09:15 | XMS_ITS | Referral Summary ---
Author Organization [facility] Address [address] [place] [address] Care Team Providers Care Manufacturing Production Manager Name Role Phone Kit Flores MD Unavailable Ainsley Huntley MD Unavailable [phone] Malcolm Pierce MD Unavailable Aimee Devine MD Primary Care Provider Giacomo Garcia MD Unavailable Eliza Wei MD Unavailable Dimitri Velasquez MD Unavailable Encounters Date Type Department Care Team Description 01/14/2025 10:30 AM CDT Ancillary Procedure [facility] [address] [place] [phone] Cardiomyopathy, ischemic; ICD (implantable cardioverter-defibri llator) in place; Paroxysmal atrial fibrillation (HCC) 01/14/2025 10:45 AM CDT Office Visit [facility] [address] [place] [phone] Hong Bernstein MD Cardiomyopathy, ischemic (Primary Dx); ICD (implantable cardioverter-defibri llator) in place; Persistent atrial fibrillation (HCC); LBBB (left bundle branch block) 11/04/2024 Telephone [facility] Cardiology [address] [facility] [address] [place] [address] Kit Flores MD from Last 3 Months Allergies No known [...] (12/29/2018): Added automatically from request for surgery [id number] Assessment & Plan (01/14/2025 11:24 AM CDT): [...] checks when necessary. The patient has a TMB7TI1-NGBl score of 5 (annualized risk of stroke 6.7%). I have therefore recommended continuation of anticoagulation. Assessment & Plan (04/02/2024 3:22 PM CDT): Continue carvedilol and Eliquis. Assessment & Plan (01/15/2024 10:46 AM CDT): Maintain normal sinus rhythm on physical exam, continue carvedilol and Eliquis. Anticoagulation management encounter 04/13/2018 Assessment & Plan (04/13/2018 11:15 AM CDT): The patient has a [id number]-TJKr score of 4 (annualized risk of stroke [...] cardiomyopathy, left bundle branch block, status post PERINATAL INSTRUCTOR-D. LV ejection fraction last estimated at 40%, [...] Overview (04/10/2017): Medtronic DDD Viva Quad XT PERINATAL INSTRUCTOR-D implanted on 06/05/16 for ICM/CHF/Afib-flutter. Chronic RA and RV leads are from 07-11-15. New LV lead placed 06/05/16. Day AlfredFlores Card Assessment & Plan (01/13/2024 2:53 PM CDT): Severe ischemic cardiomyopathy, status post PERINATAL INSTRUCTOR-D. 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 Never 02/26/2024 Do you belong to any clubs o r organizations such as gnosticist groups, unions, fraternal or athletic groups, or [...] place to sleep or slept in a residential (including now)? No 01/31/2024 PHQ-9 Answer Date [...] time in the past 12 m [facility], were you homeless or living in a residential (including now)? No 02/26/2024 Personal Safety Answer Date Recorded Have you ever been in or are you currently in a harmful physical or emotional relationship or is someone making you feel afraid or unsafe? 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 Gender Identity Not on file Sexual Orientation [...] 01/14/2025 10:41 AM CDT Plan of Treatment Not on file Medical Devices Implanted Type Area Thermodynamicist Device Identifier Shelf Expiration Date Model / Serial / Lot Medtronic Inc Cardiac Berry Hf 2 Chamber Df4 Inline Cnctr Is4 [id number] - [id number] - [id number] Implanted:Qty: 1 on 11/26/2022 by Hong Bernstein MD at [facility] ICD Medtronic Inc [id number] 03/20/2024 [id number] / [id number] / [employer] Valve Heart 26mm Horacio 3 Transcatheter [id number] - [id number] - [id number] Implanted:Qty: 1 on 02/25/2024 by Dimitri Velasquez MD at [facility] Prosthetic Valve N/A: Aortic Valve [employer] 08/25/2026 [id number] / [id number] / [employer] 18f Manta Vascular Closure Device 2115 - S0 - [id number] Implanted:Qty: 1 on 02/25/2024 by Dimitri Velasquez MD at [facility] Vascular Closure Device N/A: Femoral [employer] Inc 05/11/2025 2115 / 0 / [id number] Explanted Type Area Thermodynamicist Device Identifier Shelf Expiration Date Model / Serial / Lot Icd-06/05/2016 Implanted:2015 by Hong Bernstein MD (Quantity not on file) Explanted:Qty: 1 on 11/26/2022 by Hong Bernstein MD at [facility] ICD Chest Medtronic VIVA QUAD / / Description:Medtronic DDD Vi va Quad XT PERINATAL INSTRUCTOR-D implanted on 06/05/16 for ICM/CHF/Afib-flutter. Chronic RA [...] ohms N/A Battery Status: [address] [facility], charge time 3.8 seconds. Episodes [...] [place] LAB BLOOD ORDERABLES Final Resul t [facility] [address] Department [place] [address] * CT Chest Abdomen Pelvis [...] mm x 36 mm x 35 mm [id number] Sinotubular junction: 29 mm x 34 mm Distance to RCA ostium from aortic valve annulus: 15 mm Distance to left main ostium from annulus: 14 mm Deployment angle: 2 ITALIAN, 9 CAU Right coronary sinus height: 18 [...] mm x 36 mm x 35 mm [id number]-ua-khjgfdqxtd Sinotubular junction: 29 mm x 34 mm Distance to RCA ostium from aortic valve annulus: 15 mm Distance to left main ostium from annulus: 14 mm Deployment angle: 2 ITALIAN, 9 CAU Right coronary sinus height: 18 [...] by: Brittany Lawson M.D. us Karly Castaneda FIRER BOILER IMG CT PROCEDURES Final Re sult * Hepatitis panel, acute Blood (12/19/2023 4:23 AM CDT) Hep A IgM Nonreactive Nonreactive Comment: Interpretive Data: If Hep A IgM Ab is reported as Equivocal, a new sample should be drawn in two weeks for testing. Current interpretive data was last revised on 19. Hep B core IgM Nonreactive Nonreactive [facility] Comment: Interpretive Data If HepB Core IgM Ab is reported as Equivocal, a new sample should be drawn in two weeks for testing. Current interpretive data was last revised on 19. Hep C Ab Nonreactive Nonreactive [facility] Comment: Interpretive Data Nonreactive: Antibodies [...] last revised on 2019. HepBsAg Nonreactive Nonreactive [facility] Blood 12/19/2023 4:23 AM CDT 12/19/2023 4:38 AM CDT us Eliza Wei MD LAB MICROBIOLOGY - GENE RAL ORDERABLES Final Result [facility] [address] [place] [address] * (ABNORMAL) Hemoglobin A1c (12/19/2023 3:00 AM CDT) Hgb A1C 7.9(H) 4.0 - 5.6 % Estimated Average Glucose 180 mg/dL [facility] Comment: The ADA recommends reporting an estimated Average Glucose (eAG) with all Hemoglobin A1c results using the equation derived from a study of 507 normal and diabetic adults. Minority populations were underrepresented and children were not included. (Diabetes Care 31:5609-1571, 2008). The eAG is not equivalent to a fasting glucose. Blood 12/19/2023 3:00 AM CDT 12/19/2023 3:38 AM CDT us Zak Reardon MD LAB BLOOD ORDERABLES Final Res ult [facility] [address] Department [place] [address] * Lipid panel (12/19/2023 3:00 AM CDT) [...] revised on 2018. Triglycerides 85 <=149 mg/dL [facility] Comment: Interpretive Data Ages < or [...] revised on 2018. HDL 40 >=40 mg/dL [facility] Comment: Interpretive Data Ages < [...] on 2018. LDL, calculated 58 <=129 mg/dL [facility] Comment: Interpretive Data Ages < [...] revised on 2018. Non-HDL Cholesterol 75 mg/dL [facility] Comment: Interpretive Data Ages < [...] last revised on 2018. Chol/HDL ratio 3 [facility] Blood 12/19/2023 3:00 AM CDT 12/19/2023 3:37 AM CDT us Zak Reardon MD LAB BLOOD ORDERABLES Final Res ult [facility] [address] Department [place] [address] from Last 3 Months or Most Recently Relevant to Health Maintenance Insurance MEDICARE [facility] MEDICARE [facility] MEDICARE [facility] Member Subscriber Plan / Payer (Ef fective 2019-Present) Name:Val Noble Relation to Subscriber:Self Name:Val Noble Payer ID:[id number] Group ID:[id number] Type:COMMERCIAL Address: [address] [place] [id number] Advance Directives For more information, please contact: [phone] * Full Code (Latest Code Status on [...] 2:11 PM 12/18/2023 2:11 PM Care Teams Manufacturing Production Manager Relationship Specialty Start Date End Date Aimee Devine MD [address] [place] [address] PCP - General 05/21/20 Kit Flores MD Consulting Physician Cardiology 07/23/18 Ainsley Huntley MD [address] [address] Radiation Oncologist Radiation Oncology 04/14/19 Malcolm Pierce MD [address] [place], [place] [phone] Consulting Physician Hematology and Oncology 05/16/20 Giacomo Garcia MD [address] [place] [address] Consulting Physician Cardiothoracic Surgery 01/09/24 Eliza Wei MD [address] [place], [place] [phone] Twister Tender Nephrology 01/22/24 Dimitri Velasquez MD [address] [place], [place] [phone] Consulting Physician Interventional Cardiology 02/26/24
[2025-01-25 09:18] LABS: Add Urine Microscopic? YES; Appearance Urine Clear (Clear); Bilirubin Urine Negative (Negative); Blood Urine 1+ (Negative); Color Urine Light Yellow (Yellow); Glucose Urine UA 2+ (Negative); Ketones Urine Negative (Negative); Leukocyte Esterase Ur Negative LEU/UL (Negative); Nitrate Urine Negative (Negative); Protein Urine 2+ (Negative); Urobilinogen Urine 0.2 mg/dL (0.2-1.0); pH Urine 6.5 (5.0-8.0)
[2025-01-25 09:20] LABS: Creatinine Urine 35.88 mg/dL (40-278); Total Protein Urine Random 120.6 mg/dL (0.0-11.9); Ur Ttl Prot Creatinine Ratio 3.36 mg/mg (0-0.20)
[2025-01-25 09:25] LABS: Bacteria Urine Trace /hpf; RBC Urine 0-2 /hpf (0-2); Squamous Epithelial Cell Urine Rare /hpf (Few); WBC Urine 0-3 /hpf (0-3)
[2025-01-25 09:52] LABS: Alanine Aminotransferase 48 U/L (16-63); Albumin Level 4.1 g/dL (3.4-5.0); Alkaline Phosphatase 105 U/L (46-116); Anion Gap 9 mmol/L (4-12); Aspartate Amino Transferase 26 U/L (15-37); Bilirubin,Total 0.7 mg/dL (0.00-1.00); Blood Urea Nitrogen 68 mg/dL (7-18); Calcium 9.5 mg/dL (8.5-10.1); Carbon Dioxide 31 mmol/L (21-32); Chloride 101 mmol/L (98-108); Estimated Glomerular Filt Rate 21; Glucose 128 mg/dL (70-99); Osmolality Calculated 313 mOsm/kg (285-295); Phosphorus 4.6 mg/dL (2.6-4.7); Potassium 4.4 mmol/L (3.5-5.1); Sodium 141 mmol/L (136-145); Uric Acid 4.8 mg/dL (3.5-7.2)
[2025-01-26 22:33] LABS: Parathyroid Intact 91 pg/mL (16-77)
[2025-01-27 03:33] LABS: Vitamin D 25 Hydroxy 75 ng/mL (30-100)
== END 2025-01-25 08:50 | disposition home or self-care (01) ==
LOC: CHSLAB 08:51
PROVIDERS: PCP Internal Medicine; Visit Provider Internal Medicine Nephrology
DX: I50.9 Heart failure, unspecified (principal); N18.30 Chronic kidney disease, stage 3 unspecified; N25.81 Secondary hyperparathyroidism of renal origin; R80.9 Proteinuria, unspecified; F41.9 Anxiety disorder, unspecified
CPT/HCPCS: 36415; 80053; 81001; 82306; 82570; 83970; 84100; 84156; 84550; 85025

== ENCOUNTER 2025-03-19 07:16 | Outpatient (CLI) | payer MEDICARE, SELFPAY ==
[2025-03-19 07:27] LABS: Add Urine Microscopic? YES; Appearance Urine Clear (Clear); Bilirubin Urine Negative (Negative); Blood Urine Trace-intact (Negative); Color Urine Light Yellow (Yellow); Glucose Urine UA 3+ (Negative); Ketones Urine Negative (Negative); Leukocyte Esterase Ur Negative LEU/UL (Negative); Nitrate Urine Negative (Negative); Protein Urine 2+ (Negative); Specific Grav Ur 1.015 (1.010-1.020); Urobilinogen Urine 0.2 mg/dL (0.2-1.0)
[2025-03-19 07:31] LABS: Basophils Absolute Auto 0.03 K/mm3 (0.00-0.10); Basophils Percent Auto 0.5 % (0.0-1.0); Eosinophils Absolute Auto 0.17 K/mm3 (0.02-0.50); Eosinophils Percent Auto 2.7 % (1.0-6.0); Hematocrit 48.5 % (37.0-46.0); Hemoglobin 15.9 g/dL (12.4-15.3); Immature Granulocyte Absolute 0.03 K/mm3 (0.00-0.00); Immature Granulocyte Percent A 0.5 % (0.0-0.0); Immature Platelet Fraction Pct 3.1 % (1.0-7.0); Lymphocytes Absolute Auto 1.49 K/mm3 (1.10-4.50); Lymphocytes Percent Auto 23.3 % (18.0-42.0); Mean Corpuscular HGB Conc 32.8 g/dL (32-36); Mean Corpuscular Hemoglobin 32.6 pg (27.0-31.0); Mean Corpuscular Volume 99.4 fL (78.0-102.0); Mean Platelet Volume 10.4 fl (8.7-11.0); Monocytes Absolute Auto 0.68 K/mm3 (0.10-0.90); Monocytes Percent Auto 10.6 % (2.0-11.0); Neutrophils Percent Auto 62.4 % (50.0-70.0); Platelet Count Result 118 K/mm3 (150-420); Red Blood Count 4.88 M/mm3 (4.70-6.10); Red Cell Distribution Width 13.1 % (11.6-14.4); White Blood Count 6.4 K/mm3 (4.8-10.8)
[2025-03-19 07:34] LABS: RBC Urine 0-2 /hpf (0-2); WBC Urine None seen /hpf (0-3)
[2025-03-19 07:35] LABS: Bacteria Urine None seen /hpf; Squamous Epithelial Cell Urine None Seen /hpf (Few)
[2025-03-19 07:45] LABS: Hemoglobin A1C 6.6 % (<5.7)
[2025-03-19 08:00] LABS: Alanine Aminotransferase 67 U/L (6-50); Albumin Level 4.3 g/dL (3.5-5.1); Alkaline Phosphatase 77 U/L (38-126); Anion Gap 7 mmol/L (4-12); Aspartate Amino Transferase 48 U/L (17-59); Bilirubin,Total 0.8 mg/dL (0.2-1.3); Blood Urea Nitrogen 62 mg/dL (9-20); Calcium 9.2 mg/dL (8.4-10.2); Carbon Dioxide 29 mmol/L (22-30); Chloride 107 mmol/L (98-107); Estimated Glomerular Filt Rate 25; Glucose 105 mg/dL (65-110); Iron 125 ug/dL (49-181); Osmolality Calculated 313 mOsm/kg (285-295); Potassium 4.6 mmol/L (3.4-5.0); Sodium 143 mmol/L (137-145); Total Protein 7.4 g/dL (6.3-8.2)
== END 2025-03-19 07:17 | disposition home or self-care (01) ==
LOC: CHSLAB 07:17
PROVIDERS: PCP Internal Medicine; Visit Provider Internal Medicine
DX: D75.1 Secondary polycythemia (principal); E11.65 Type 2 diabetes mellitus with hyperglycemia; I50.9 Heart failure, unspecified; E79.0 Hyperuricemia without signs of inflammatory arthritis and tophaceous disease; N39.0 Urinary tract infection, site not specified
CPT/HCPCS: 36415; 80053; 81001; 82728; 83036; 83540; 85025; 85055

== ENCOUNTER 2025-07-08 14:09 | Outpatient (CLI) | payer MEDICARE, SELFPAY ==
--- NOTE | ~2025-07-08 | US_ITS ---
ULTRASOUND ABDOMEN LIMITED (RIGHT UPPER QUADRANT) Clinical History: Elevated Liver Enzymes Comparison: CT abdomen and pelvis 04/27/2019 Technique: Right upper quadrant sonography Findings: Liver: Normal size. Normal echotexture. No intrahepatic biliary ductal dilatation. Normal hepatopedal flow main portal vein. Common Duct: Normal caliber. 5 mm. Gallbladder: No stones. No wall thickening. No pericholecystic fluid. Pancreas: Mostly obscured by bowel gas. IMPRESSION: 1. No acute findings. Reviewed, dictated and finalized at location R. IMPRESSION: 1. No acute findings.
[2025-07-08 14:39] LABS: Hematocrit 48.6 % (37.0-46.0); Hemoglobin 16.3 g/dL (12.4-15.3); Immature Platelet Fraction Pct 4.6 % (1.0-7.0); Mean Corpuscular HGB Conc 33.5 g/dL (32-36); Mean Corpuscular Hemoglobin 32.5 pg (27.0-31.0); Mean Corpuscular Volume 97.0 fL (78.0-102.0); Platelet Count Result 117 K/mm3 (150-420); Red Blood Count 5.01 M/mm3 (4.70-6.10); White Blood Count 6.2 K/mm3 (4.8-10.8)
[2025-07-08 15:05] LABS: Alanine Aminotransferase 92 U/L (6-50); Albumin Level 4.6 g/dL (3.5-5.1); Alkaline Phosphatase 97 U/L (38-126); Anion Gap 15 mmol/L (4-12); Aspartate Amino Transferase 58 U/L (17-59); Bilirubin,Total 0.8 mg/dL (0.2-1.3); Blood Urea Nitrogen 81 mg/dL (9-20); Calcium 9.5 mg/dL (8.4-10.2); Carbon Dioxide 27 mmol/L (22-30); Chloride 101 mmol/L (98-107); Estimated Glomerular Filt Rate 18; Glucose 324 mg/dL (65-110); Iron 120 ug/dL (49-181); Osmolality Calculated 333 mOsm/kg (285-295); Potassium 3.9 mmol/L (3.4-5.0); Sodium 143 mmol/L (137-145); Total Protein 8.8 g/dL (6.3-8.2)
[2025-07-08 15:06] LABS: Hemoglobin A1C 7.2 % (<5.7)
[2025-07-08 15:41] LABS: Ferritin 93.20 ng/mL (11.1-264)
[2025-07-08 15:46] LABS: GGT 50.9 U/L (15-73)
--- OUTSIDE RECORDS SUMMARY | 2025-07-08 16:15 | XMS_ITS | Encounter Summary ---
Author Organization [facility] Address [address] [facility] [address] [place] [address] Care Team Providers Care Manager Rn Name Role Phone Damian Adam MD Primary Care Provider [phone] Della Beckett MD Primary Care Provider [phone] Kit Flores MD Unavailable [phone] Ainsley Huntley MD Unavailable Malcolm Pierce MD Unavailable Aimee Dveine MD Primary Care Provider [phone] Giacomo Garcia MD Unavailable [phone] Eliza Wei MD Unavailable [phone] Dimitri Velasquez MD Unavailable Encounter Details Date Type Department Care Team (Late st Contact Info) Description 10/22/2016 Orders Only [facility] Provider, MD [facility] [place] [address] Social History Tobacco Use Types Packs/Day Years Used Date Smoking Tobacco: Former Cigarettes Q uit: 09/23/2014 Comments:Smoking History Pac ks/day: 10 Cigarettes Alcohol Use Standard Drinks/Week Comments No 0 (1 standard drink = 0.6 oz pur e alcohol) Sex and Gender Information Value Date Recorded Sex Assigned at Not on file 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 Gender Identity Not on file Sexual Orientation [...] on filedocumented in this encounter Care Teams Manager Rn Relationship Specialty Start Date End Date Damian Adam MD [address] [place] [address] PCP - General 12/31/16 05/20/20 Della Beckett MD [address] 140) [phone] [place], [place] [phone] PCP - General 06/18/16 12/30/16 Aimee Devine MD [address] [place] [place], [place] [phone] PCP - General 05/21/20 Kit Flores MD [address] 740) [phone] [place], [place] [phone] Consulting Physician Cardiology 07/23/18 Ainsley Huntley MD [address] [place] [address] Radiation Oncologist Radiation Oncology 04/14/19 Malcolm Pierce MD [address] [place] [address] Consulting Physician Hematology and Oncology 05/16/20 Giacomo Garcia MD [address] [place] [address] Consulting Physician Cardiothoracic Surgery 01/09/24 Eliza Wei MD [address] [place] [address] Stone Gluer Nephrology 01/22/24 Dimitri Velasquez MD [address] [place] [address] Consulting Physician Interventional Cardiology 02/26/24 documented as of this encounter
--- OUTSIDE RECORDS SUMMARY | 2025-07-08 16:15 | XMS_ITS | Encounter Summary ---
Author Organization [facility] Address [address] [facility] [address] [place] [address] Care Team Providers Care Can Maker Name Role Phone Damian Adam MD Primary Care Provider [phone] Kit Flores MD Unavailable [phone] Ainsley Huntley MD Unavailable [phone] Malcolm Pierce MD Unavailable Aimee Devine MD Primary Care Provider [phone] Giacomo Garcia MD Unavailable [phone] Eliza Wei MD Unavailable [phone] Dimitri Velasquez MD Unavailable Encounter Details Date Type Department Care Team (Late st Contact Info) Description 01/21/2017 Orders Only [facility]hythmia Center Provider, MD Estephania [address] [place] [address] Social History Tobacco Use Types Packs/Day Years Used Date Smoking Tobacco: Former Cigarettes Q uit: 09/23/2014 Comments:Smoking History Pac ks/day: 10 Cigarettes Alcohol Use Standard Drinks/Week Comments No 0 (1 standard drink = 0.6 oz pur e alcohol) Sex and Gender Information Value Date Recorded Sex Assigned at Not on file 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 Gender Identity Not on file Sexual Orientation [...] on filedocumented in this encounter Care Teams Can Maker Relationship Specialty Start Date End Date Damian Adam MD [email or web address] [address] PCP - General 12/31/16 05/20/20 Aimee Devine MD [address] [place] [address] PCP - General 05/21/20 Kit Flores MD [email or web address] [address] Consulting Physician Cardiology 07/23/18 Ainsley Huntley MD [address] [place], [place] [phone] Radiation Oncologist Radiation Oncology 04/14/19 Malcolm Pierce MD [address] [place] [address] Consulting Physician Hematology and Oncology 05/16/20 Giacomo Garcia MD [address] [place], [place] [phone] Consulting Physician Cardiothoracic Surgery 01/09/24 Eliza Wei MD [address] [place] [address] Top Waddy Nephrology 01/22/24 Dimitri Velasquez MD [address] [place] [address] Consulting Physician Interventional Cardiology 02/26/24 documented as of this encounter
--- OUTSIDE RECORDS SUMMARY | 2025-07-08 16:16 | XMS_ITS | Clinical Summary ---
Author Organization [facility] Address [address] [facility] [place] [address] Phone Care Team Providers Care Gambling Monitor Name Role Phone Chaparro Mathias Tiera DPM Unavailable [phone] Aimee Devine MD Primary Care Provider [phone] Allergies No known active allergies Medications bisacodyl [...] 2:25 PM CDT Height 177.8 cm (5' 10) 01/26/2021 2:25 PM CDT Body Mass Index 36.19 01/26/2021 2:25 PM CDT Plan of Treatment Health Maintenance Due Date Last Done Comments Diabetes: Eye Exam 1945 Diabetes: Foot Exam 1945 Diabetes: Hemoglobin A1c 1945 Hepatitis C Virus (HCV) Screening 1945 TdaP Immunization 1945 Diabetes: Nephropathy Screening 1965 Zoster Immunization (1 of 2) 1997 Medicare Initial AWV [id number] 02/21/2013 Pneumococcal Immunization (5 0+ years) (2 of 2 - PPSV23, PCV20, or PCV21) 09/23/2015 07/29/2015 Respiratory Syncytial Virus (RSV) Immunization (Adult) (1 - 1-dose 75+ series) 2022 Influenza Immunization (#1) 05/24/202505/25, 07/29/2015 SARS-COV-2 Immunization ( season) 2025 05/15/2021, 11/16/2020, 10/26/2020 Pneumococcal Immunization Combined Discontinued 07/29/2015 Hepatitis B Immunization Aged Out No longer eligible based on patient's age to complete this topic Human Papillomavirus (HPV) Immunization Aged Out No longer eligible based on patient's age to complete this topic Meningococcal Immunization (ACWY) Aged Out No longer eligible based on patient's age to complete this topic Rotavirus Immunization Aged Out No lo nger eligible based on patient's age to complete this topic Insurance MEDICARE [facility] Care Teams Gambling Monitor Relationship Specialty Start Date End Date Aimee Devine MD [address] [place] [address] PCP - General Internal Medicine 10/30/19 Chaparro Mathias DPM Podiatry 08/15/15
--- OUTSIDE RECORDS SUMMARY | 2025-07-08 16:16 | XMS_ITS ---
[facility] [place] [address] * (ABNORMAL) Urinalysis, microscopic only (05/28/2025 8:43 AM CDT) WBC, ur 0-5 0 - 5 /HPF RBC, ur 3-5(A) 0 - 2 /HPF [facility] Epithelial cells, squamous, ur 1-5 0 - 5 /HPF [facility] Culture Reflex Comment Reflex conditions for urine culture (WBC >10) not met. [facility] Urine 05/28/2025 8:43 AM CDT 05/28/2025 8:57 AM CDT us Eliza Wei MD LAB URINE ORDERABLES Fi nal Result Performing Organization Address City/[facility]/ZIP Co de Phone Number [facility] [address] [place] [address] * Phosphorus (05/28/2025 8:43 AM CDT) Pathologist [facility] Phosphorus, pl 4.3 2.3 - 4.5 mg/dL Blood 05/28/2025 8:43 AM CDT 05/28/2025 8:57 AM CDT us Eliza Wei MD LAB BLOOD ORDERABLES Fi nal Result [facility] [address] [place] [address] * (ABNORMAL) PTH (05/28/2025 8:43 AM CDT) Pathologist [facility] PTH 103.0(H) 15.0 - 65.0 pg/mL Blood 05/28/2025 8:43 AM CDT 05/28/2025 8:57 AM CDT Narrative [facility] - 05/28/2025 9:24 AM CDT fax [phone] Wei us Eliza Wei MD LAB BLOOD ORDERABLES Fi nal Result Performing Organization Address City/[facility]/ZIP Co de Phone Number [facility] [address] Department of [employer] [place], [place] [id number] * (ABNORMAL) Magnesium (05/28/2025 8:43 AM CDT) [facility] Magnesium 2.8(H) 1.4 - 2.5 mg/dL Blood 05/28/2025 8:43 AM CDT 05/28/2025 8:57 AM CDT Eliza Wei MD LAB BLOOD ORDERABLES Fi nal Result Performing Organization Address [facility] Co de Phone Number [facility] [address] [place] [address] * (ABNORMAL) Comprehensive metabolic panel (05/28/2025 8:43 AM CDT) [facility] Sodium 139 135 - 145 mmol/L Potassium, pl 4.2 3.3 - 4.9 mmol/L [facility] Chloride 100 97 - 110 mmol/L [facility] CO2 30 22 - 32 mmol/L [facility] Anion gap 9 2 - 15 mmol/L [facility] BUN 63(H) 6 - 25 mg/dL [facility] Creatinine 2.54(H) 0.80 - 1.30 mg/dL [facility] Glucose 175 70 - 199 mg/dL [facility] Comment: Interpretive Data Fasting glucose >/= 126 mg/dl is diagnostic for diabetes. Fasting is defined as no caloric intake for at least 8 hours. Fasting glucose between 100 mg/dl to 125 mg/dl is diagnostic of prediabetes. In a patient with classic symptoms of hyperglycemia or hyperglycemic crisis, a random glucose >/= 200 mg/dl is diagnostic for diabetes. In the absence of unequivocal hyperglycemia, results should be confirmed by repeat testing. The classification and Diagnosis of Diabetes Diabetes Care 2021; 46: S19-S40. Current interpretive data was last revised 2022. Calcium 9.6 8.5 - 10.3 mg/dL [facility] Bilirubin, total 0.6 0.1 - 1.2 mg/dL [facility] Protein, pl 7.4 6.5 - 8.5 g/dL [facility] Albumin 4.3 3.5 - 5.0 g/dL [facility] Alk phos 89 40 - 130 Units/L [facility] ALT 84(H) 7 - 55 Units/L [facility] AST 47 10 - 50 Units/L [facility] Blood 05/28/2025 8:43 AM CDT 05/28/2025 8:57 AM CDT us Eliza Wei MD LAB BLOOD ORDERABLES Fi nal Result [facility] [address] [place] [address] * DEVICE CHECK - REMOTE (04/17/2025 12:16 PM CDT) Anatomical Region Laterality Modality Other Narrative 05/10/2025 7:49 AM CDT Table formatting from the original result was not included. BiV ICD CHECK (REMOTE) Patient ID: Val Noble is a 80 y.o. male. This patient received a Medtronic BiV ICD. They had a routine remote transmission on 04/17/2025 Device implant indications: Ischemic cardiomyopathy, CHF, AF/AFL Interrogation of the patient's device demonstrates the following: Presenting EGM: Bi V paced @ 73 bpm Original Device Settings Right Ventricle Left Ventricle Sensitivity (mV) 0.45 mV N/a mV Pacing Outputs 1.5 V @ 0.4 ms 1.25 V @ 0.6 ms Testing Measurements Right Ventricle Left Ventricle Sensitivity (mV) 3.8 mV Not done mV Impedence (Ohms) 361 ohms 684 ohms Pace Threshold 0.75 V @ 0.4 ms 0.75 V @ 0.6 ms Pacing % 99.8 % 99.8 % HV Lead Impedance 60 ohms N/A Battery Status: 7.9 years to [employer] [facility], charge time 3.8 seconds. Episodes last 90 days/Comments: No new ventricular events. NORMAL DEVICE FUNCTION PROGRAMMED MEDICATIONS: Anti-coagulant(s): Aspirin 81 mg, Eliquis 5 mg twice a day Anti-arrhythmic(s): Coreg 3.125 mg twice a day PLAN: 1) Medtronic BiV ICD evaluation 2) Medtronic remote transmission scheduled in 3 months. 3) Programming appropriate for device settings Lisa Martinez RN us Hong Bernstein MD [facility] PRO CEDURES Final Result * CT Chest Abdomen Pelvis WO Contrast [...] mm x 36 mm x 35 mm gtal-tz-jziwacslyv Sinotubular junction: 29 mm x 34 mm Distance to RCA ostium from aortic valve annulus: 15 mm Distance to left main ostium from annulus: 14 mm Deployment angle: 2 BELARUSIAN, 9 CAU Right coronary sinus height: 18 [...] mm x 36 mm x 35 mm vlqy-ld-uqwyewrixt Sinotubular junction: 29 mm x 34 mm Distance to RCA ostium from aortic valve annulus: 15 mm Distance to left main ostium from annulus: 14 mm Deployment angle: 2 BELARUSIAN, 9 CAU Right coronary sinus height: 18 [...] by: Brittany Lawson M.D. Karly Castaneda NP IM CT PROCEDURES Final Re sult * Hepatitis panel, acute Blood (12/19/2023 4:23 AM CDT) Hep A IgM Nonreactive Nonreactive Comment: Interpretive Data: If Hep A IgM Ab is reported as Equivocal, a new sample should be drawn in two weeks for testing. Current interpretive data was last revised on 19. Hep B core IgM Nonreactive Nonreactive [facility] Comment: Interpretive Data If HepB Core IgM [...] RAL ORDERABLES Final Result Performing Organization Address [facility] de Phone Number [facility] [address] [place] [address] * (ABNORMAL) Hemoglobin A1c (12/19/2023 3:00 AM CDT) Hgb A1C 7.9(H) 4.0 - 5.6 % Estimated Average Glucose 180 mg/dL [facility] Comment: The ADA recommends reporting an estimated Average Glucose (eAG) with all Hemoglobin A1c results using the equation derived from a study of 507 normal and diabetic adults. Minority populations were underrepresented and children were not included. (Diabetes Care 31:5360-3991, 2008). The eAG is not equivalent to a fasting glucose. Blood 12/19/2023 3:00 AM CDT 12/19/2023 3:38 AM CDT us Zak Reardon MD LAB BLOOD ORDERABLES Final Res ult Performing Organization Address [facility] Co de Phone Number [facility] [address] [place] [address] * Lipid panel (12/19/2023 3:00 AM CDT) [...] revised on 2018. Non-HDL Cholesterol 75 mg/dL [facility] Comment: Interpretive Data Ages < or = [...] MD LAB BLOOD ORDERABLES Final Res ult [facility] [address] [place] [address] from Last 3 Months or Most Recently Relevant to Health Maintenance Insurance MEDICARE AARP MEDICARE [facility] Address: [address] [place] [phone] [place] [address] [place] [phone] MEDICARE AARP [facility] Advance Directives For more information, please contact: [phone] * Full Code (Latest Code Status on [...] 2:11 PM 12/18/2023 2:11 PM Care Teams Line Service Person Relationship Specialty Start Date End Date Aimee Devine MD [address] [place] [address] PCP - General 05/21/20 Kit Flores MD Consulting Physician Cardiology 07/23/18 Ainsley Huntley MD [address] [place], [place] [id number] Radiation Oncologist Radiation Oncology 04/14/19 Malcolm Pierce MD [address] [place] [address] Consulting Physician Hematology and Oncology 05/16/20 Giacomo Garcia MD [address] [place] [place], [place] [id number] Consulting Physician Cardiothoracic Surgery 01/09/24 Eliza Wei MD [address] [facility] [address] [place], [place] [id number] Postmaster Relief Nephrology 01/22/24 Dimitri Velasquez MD [address] [place] [address] Consulting Physician Interventional Cardiology 02/26/24
--- OUTSIDE RECORDS SUMMARY | 2025-07-08 16:16 | XMS_ITS | Encounter Summary ---
Author Organization [facility] Address [address] [place] [address] Phone Care Team Providers Care Analytical Engineer Name Role Phone Chaparro Mathias DPM Unavailable [phone] Aimee Devine MD Primary Care Provider [phone] Reason for Visit * Reason Comments Medication Refill Encounter Details Date Type Department Care Team (Late st Contact Info) Description 08/06/2021 Refill [facility] - Neurology [facility] [address] [place] [id number] Ebenezer Gutierrez MD [address] [place] [address] Medication Refill Social History Tobacco [...] Dept 01/26/21 Office Visit Ebenezer Gutierrez MD [facility] [place] [address] 10/31/20 Office Visit Ebenezer Gutierrez MD [facility] [place] Showing recent visits within past 365 days and meeting all other requirements Future Appointments No visits were found meeting these conditions. Showing future appointments within next 90 days and meeting all other requirements PAGNE MAKER documented in this encounter Plan of Treatment Not on file documented as of this encounter Visit Diagnoses Not on filedocumented in this encounter Care Teams Analytical Engineer Relationship Specialty Start Date End Date Aimee Devine MD [address] [place] [address] PCP - General Internal Medicine 10/30/19 Chaparro Mathias DPM Podiatry 08/15/15 documented as of this encounter
--- OUTSIDE RECORDS SUMMARY | 2025-07-08 16:16 | XMS_ITS | Clinical Summary ---
Author Organization [facility] Address [address] [place] [address] Care Team Providers Care Marine Steward Name Role Phone Aimee Devine MD Primary Care Provider Source Comments [facility],non-owned Affiliates and Associated Physician Practices is amultiple site organization consisting of ambulatory clinics and hospital sitesin [place], [place], [place] and [place]. This disclosure is being madepursuant to the Care Everywhere program and may not contain all information available regarding this patient. 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 Gender Identity Not on file Sexual Orientation Not on file Plan of Treatment Upcoming Encounters Date Type Department Care Team (Late st Contact Info) Description 08/09/2025 2:00 PM MANAGER TRUCK Office Visit [facility] - General Dermatology [address], [facility] [address] [place] [address] Shamar Denson PACharbelC [address] [facility] [address] [place] [address] Health Maintenance Due Date Last Done Comments HEPATITIS C SCREENING 03/01/1965 DTAP/TDAP/TD VACCINES (1 - Tdap) 1966 PNEUMOCOCCAL VACCINE 50+ (1 of 1 - PCV) 1997 ZOSTER VACCINE (1 of 2) 1997 Respiratory Syncytial Virus (RSV) Vaccine Pt: or over 60 yrs (1 - 1-dose 75+ series) 2022 DEPRESSION SCREENING 09/23/2024 MEDICARE AWV CALENDAR YEAR 2024 COVID-19 VACCINE (1 - 2023-2 5 season) 2025 INFLUENZA VACCINE (#1) 2025 HEPATITIS B VACCINE Aged Out No longe r eligible based on patient's age to complete this topic HIB VACCINE Aged Out No longer eligi ble based on patient's age to complete this topic HPV VACCINE Aged Out No longer eligi ble based on patient's age to complete this topic MENINGOCOCCAL (Group B) VACC INE SHARED DECISION-MAKING Aged Out No longer eligibl e based on patient's age to complete this topic MENINGOCOCCAL GROUPS A/C/Y/W VACCINE Aged Out No longer eligible b ased on patient's age to complete this topic Insurance MEDICARE [facility] UHC MANAGED MEDICARE ADV MEDICARE [facility] Care Teams Marine Steward Relationship Specialty Start Date End Date Aimee Devine MD [address] [place] [address] PCP - General Internal Medicine 05/19/25
--- OUTSIDE RECORDS SUMMARY | 2025-07-08 16:16 | XMS_ITS | Encounter Summary ---
Author Organization [facility] Address [address] [place] [address] Care Team Providers Care Java Lead Architect Name Role Phone Damian Adam MD Primary Care Provider [phone] Kit Flores MD Unavailable [phone] Ainsley Huntley MD Unavailable [phone] Malcolm Pierce MD Unavailable Aimee Devine MD Primary Care Provider [phone] Giacomo Garcia MD Unavailable [phone] Eliza Wei MD Unavailable [phone] Dimitri Velasquez MD Unavailable Encounter Details Date Type Department Care Team (Late st Contact Info) Description 05/19/[address] 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 Gender Identity Not on file Sexual Orientation Not on file documented as of this encounter Plan of Treatment Not on file documented as of this encounter Visit Diagnoses Not on filedocumented in this encounter Care Teams Java Lead Architect Relationship Specialty Start Date End Date Damian Adam MD [address] [address] PCP - General 12/31/16 05/20/20 Aimee Devine MD [address] [place] [address] PCP - General 05/21/20 Kit Flores MD [address] [address] Consulting Physician Cardiology 07/23/18 Ainsley Huntley MD [address] [place] [address] Radiation Oncologist Radiation Oncology 04/14/19 Malcolm Pierce MD [address] [place], [place] [id number] Consulting Physician Hematology and Oncology 05/16/20 Giacomo Garcia MD [address] [place] [address] Consulting Physician Cardiothoracic Surgery 01/09/24 Eliza Wei MD [address] [place] [address] Rickshaw Driver Nephrology 01/22/24 Dimitri Velasquez MD [address] [place] [address] Consulting Physician Interventional Cardiology 02/26/24 documented as of this encounter
[2025-07-09 18:08] LABS: ANA by IFA Rfx Titer/Pattern Positive (.)
== END 2025-07-08 14:10 | disposition home or self-care (01) ==
LOC: CHSLAB 14:11
PROVIDERS: PCP Internal Medicine; Visit Provider Internal Medicine
DX: R74.01 Elevation of levels of liver transaminase levels (principal); E11.65 Type 2 diabetes mellitus with hyperglycemia
CPT/HCPCS: 36415; 76705; 80053; 82728; 82977; 83036; 83540; 85027; 85055; 86038; 86803; 87340